=== PATIENT | male | born 1930 | race Caucasian/White ===

== ENCOUNTER → 2016-06-13 | Outpatient (CLI) | payer MEDICARE, BC ==
--- NOTE | 2016-06-13 12:08 | US ---
EXAMINATION TYPE: US chest DATE OF EXAM: 06/13/2016 11:10 AM COMPARISON: Radiograph 06/09/2016 CLINICAL HISTORY: 86-year-old male SOB R06.02 J90 Pleural effusion right. TECHNIQUE: Multiple sonographic images of the posterior mid to lower right chest wall for assessment of pleural effusion. FINDINGS: TECHNOLOGIST NOTES: scanned over the right post chest; no pleural effusion noted; results called to Josselin at 3rd floor procedures, Dr Lindquist to be notified. Images show high positioning of the liver suggesting elevation of the right hemidiaphragm compatible with radiographic findings. No pleural effusion is seen. IMPRESSIONS: High positioning of the liver suggesting elevation of the right hemidiaphragm. No pleural effusion se en.
--- NOTE | 2016-06-13 13:08 | CT ---
EXAMINATION TYPE: CT chest wo con DATE OF EXAM: 06/13/2016 12:56 PM COMPARISON: 03/02/2016 HISTORY: Rt Pleural Effusion, SOB CT DLP: 526 mGycm Automated exposure control for dose reduction was used. FINDINGS: The graft severe cardiomegaly seen. Atherosclerotic change at the origin of the great vesse ls most marked involving the subclavian origin. Extensive coronary artery calcification seen. There is a area of infiltrate involving the right lower lobe. No sizable pleural effusion. Emphysematous changes are seen. Pleural-based nodularity in the right upper lobe measuring 5 mm likel y is postinflammatory. Arthropathy shoulders and severe multilevel degenerative disc changes within the visualized spine are again noted. There are extensive coronary artery calcifications, calcifications of the aortic root and the patient is post median sternotomy. There is a right pleural effusion, air bronchograms are present in the right lower lobe. Emphysematou s changes are present within the lungs. There is a single nonobstructing right renal calculus and hypodense lesion involving the upper pole a nd midpole the right kidney which are indeterminate by noncontrast technique. There is mild aneurysmal dilation of the visualized portion of the abdominal aorta measuring 3.1 cm. Cholelithiasis. Likely is a degree of gynecomastia involving the right chest. IMPRESSION: 1. COPD AND MARKED CARDIOMEGALY WITH EXTENSIVE CORONARY ARTERY CALCIFICATION. 2. RIGHT LOWER LOBE AREA OF CHRONIC ATELECTASIS OR INFILTRATE WITH NO SIZABLE PLEURAL EFFUSION. PERSI STENT RIGHT HEMIDIAPHRAGM ELEVATION. 3. CHOLELITHIASIS 4. 3.1 CM ABDOMINAL AORTIC ANEURYSM
== END | disposition home or self-care (01) ==
LOC: RADUSWWP 11:08
PROVIDERS: ATTEND Internal Medicine Critical Care Medicine
DX: J98.6 Disorders of diaphragm (principal); J44.9 Chronic obstructive pulmonary disease, unspecified; I51.7 Cardiomegaly; I25.10 Atherosclerotic heart disease of native coronary artery without angina pectoris
CPT/HCPCS: 71250; 76604

== ENCOUNTER 2017-05-18 11:30 | Emergency (ER) | payer MEDICARE, BC ==
[2017-05-18 12:06] VITALS: BP 121/64; PULSE 81; RESP 17; TEMP 97.9
[2017-05-18] MEDS ORDERED: CLINDAMYCIN 150 MG CAP PO STA ×2 (12:12→12:29)
--- NOTE | 2017-05-18 12:19 | ED ---
General Adult HPI - General Chief complaint: Dental/Oral Stated complaint: DENTAL PAIN Time Seen by Provider: 05/18/17 12:07 Source: patient Mode of arrival: ambulatory Limitations: no limitations - History of Present Illness Initial comments: Philip is an 87 her old male who presents to the emergency department today for evaluation of dental pain. Patient has multiple broken teeth and reports that he has been experiencing pain in his lower left tooth since he broke it a few weeks ago. She saw his primary care physician and was prescribed by mouth Keflex which he was compliant with. Patient reports the by mouth Keflex was completed approximately 5 days ago. Since that time he has had persistent pain in the tooth which she is treating with by mouth Motrin. He states that this morning he noticed the base of the tooth seemed a little more red and swollen which prompted him to come to the emergency department for reevaluation. Patient is scheduled to see his dentist for this on Thursday of this week. She denies any fevers, chills, nausea, vomiting. He reports that he is otherwise in his usual state of health. He is able to eat and drink without difficulty. He's had no change in his voice or swelling of his face or throat. - Related Data Home Medications Medication Instructions Recorded Confirmed Acetaminophen Tab [Tylenol] 650 mg PO Q4H PRN 03/02/16 04/30/16 Aspirin 81 mg PO HS 03/02/16 04/30/16 Atorvastatin [Lipitor] 40 mg PO HS 03/02/16 04/30/16 Furosemide [Lasix] 40 mg PO BID 03/02/16 04/30/16 Ipratropium-Albuterol Nebulize 3 ml INHALATION RT-Q6H PRN 03/02/16 04/30/16 [Duoneb 0.5 mg-3 mg/3 ml Soln] Pantoprazole Sodium [Protonix] 40 mg PO DAILY 03/02/16 04/30/16 Potassium Chloride ER [K-Dur 10] 10 meq PO AC-SUPPER 03/02/16 04/30/16 Sennosides [Senna] 17.2 mg PO HS 04/09/16 04/30/16 Tamsulosin HCl [Flomax] 0.4 mg PO DAILY@1200 04/09/16 04/30/16 Warfarin [Coumadin] 5 mg PO SUTUTH 04/09/16 04/30/16 Warfarin [Coumadin] 7 mg PO MOWESA 04/09/16 04/30/16 Previous Rx's Medication Instructions Recorded Digoxin [Lanoxin] 125 mcg PO DAILY #30 tab 02/11/16 Losartan [Cozaar] 12.5 mg PO DAILY@1200 #30 tab 02/11/16 ALPRAZolam [Xanax] 0.25 mg PO BID PRN #14 tab 03/07/16 Metoprolol Tartrate [Lopressor] 25 mg PO TID tab 03/07/16 Nitroglycerin Sl Tabs [Nitrostat] 0.4 mg SUBLINGUAL Q5M PRN #0 tab 03/07/16 Temazepam [Restoril] 15 mg PO HS PRN #7 cap 03/07/16 Clindamycin [Cleocin] 450 mg PO Q6H 7 Days #28 capsule 05/18/17 Allergies Allergy/AdvReac Type Severity Reaction Status Date / Time cyclobenzaprine HCl Allergy Confusion Verified 05/18/17 12:06 [From Flexeril] Penicillins Allergy Rash/Hives Verified 05/18/17 12:06 Review of Systems ROS Statement: Those systems with pertinent positive or pertinent negative responses have been documented in the HPI. ROS Other: All systems not noted in ROS Statement are negative. Past Medical History Past Medical History: Atrial Fibrillation, Heart Failure, GERD/Reflux, Hyperlipidemia, Hypertension Additional Past Medical History / Comment(s): edema, constipation History of Any Multi-Drug Resistant Organisms: None Reported Past Surgical History: Appendectomy, Coronary Bypass/CABG, Hernia Repair, Orthopedic Surgery Additional Past Surgical History / Comment(s): shoulder, ankle Past Anesthesia/Blood Transfusion Reactions: No Reported Reaction Past Psychological History: No Psychological Hx Reported Smoking Status: Former smoker Past Alcohol Use History: None Reported Past Drug Use History: None Reported - Past Family History Father History Unknown: Yes Mother History Unknown: Yes General Exam Limitations: no limitations General appearance: alert, in no apparent distress Head exam: Present: atraumatic, normocephalic Eye exam: Present: normal appearance, PERRL ENT exam: Present: other (Poor dentition, multiple capped and broken teeth. Tooth #23 is broken with minimal erythema at the base of the tooth. No obvious abscess.) Neck exam: Present: normal inspection. Absent: lymphadenopathy Respiratory exam: Absent: respiratory distress Cardiovascular Exam: Present: regular rate, systolic murmur GI/Abdominal exam: Present: soft. Absent: distended Extremities exam: Present: normal inspection Neurological exam: Present: alert, oriented X3, other (Hard of hearing) Psychiatric exam: Present: normal affect, normal mood Skin exam: Present: warm, dry Course Vital Signs 05/18/17 12:03 Temperature 97.9 F Pulse Rate 81 Respiratory 17 Rate Blood Pressure 121/64 O2 Sat by Pulse 92 L Oximetry Medical Decision Making - Medical Decision Making Patient was seen and evaluated, history was obtained from the patient Physical exam is consistent with poor dentition and a broken tooth. At this time I do think the patient requires oral antibiotics and follow up with dentist as scheduled. Patient was recently on Keflex I will prescribe by mouth clindamycin, first dose to be given here in the emergency department. Disposition Clinical Impression: Dental infection, Broken tooth Disposition: HOME SELF-CARE Condition: Good Instructions: Dental Abscess (ED), Toothache (ED) Prescriptions: Clindamycin [Cleocin] 450 mg PO Q6H 7 Days #28 capsule Referrals: Dom Price DO [Primary Care Provider] - 1-2 days Time of Disposition: 12:19
== END 2017-05-18 12:33 | disposition home or self-care (01) ==
LOC: EC 11:30
DX: S02.5XXA Fracture of tooth (traumatic), initial encounter for closed fracture (principal); K04.7 Periapical abscess without sinus; I48.91 Unspecified atrial fibrillation; I11.0 Hypertensive heart disease with heart failure; I50.9 Heart failure, unspecified; E78.5 Hyperlipidemia, unspecified; K21.9 Gastro-esophageal reflux disease without esophagitis; Z87.891 Personal history of nicotine dependence; Z88.0 Allergy status to penicillin; Z88.8 Allergy status to other drugs, medicaments and biological substances; Z79.01 Long term (current) use of anticoagulants; Z79.82 Long term (current) use of aspirin; Z79.899 Other long term (current) drug therapy; X58.XXXA Exposure to other specified factors, initial encounter
CPT/HCPCS: 99282

== ENCOUNTER 2018-09-24 17:01 | Inpatient (IN) | payer MEDICARE, BC ==
[2018-09-24] MEDS ORDERED: IPRATROPIUM-ALBUTEROL 3 ML NEB INHALATION STA (17:15)
--- NOTE | 2018-09-24 17:19 | ED ---
SOB HPI - General Chief Complaint: Shortness of Breath Stated Complaint: SOB, cough Time Seen by Provider: 09/24/18 17:14 Source: patient, RN notes reviewed, old records reviewed Mode of arrival: wheelchair Limitations: no limitations - History of Present Illness Initial Comments: This is a 8-year-old male the ER for evaluation shortness of breath. Patient has shortness with her a few days now progressing. No pain. No chest pain currently. No fevers that he knows. He does have increased cough and congestion and increased sputum production. No recent hospitalizations no known significant sick contacts. MD Complaint: shortness of breath, cough -: days(s) Severity: mild Consistency: constant Improves With: nothing Worsens With: exertion Known History Of: congestive heart failure Context: recent URI Associated Symptoms: cough, sputum production Treatments Prior to Arrival: none - Related Data Home Medications Medication Instructions Recorded Confirmed Aspirin 81 mg PO HS 03/02/16 09/24/18 Atorvastatin [Lipitor] 40 mg PO HS 03/02/16 09/24/18 Furosemide [Lasix] 40 mg PO BID 03/02/16 09/24/18 Ipratropium-Albuterol Nebulize 3 ml INHALATION RT-QID PRN 03/02/16 09/24/18 [Duoneb 0.5 mg-3 mg/3 ml Soln] Pantoprazole Sodium [Protonix] 40 mg PO DAILY 03/02/16 09/24/18 Potassium Chloride ER [K-Dur 10] 10 meq PO AC-SUPPER 03/02/16 09/24/18 Tamsulosin HCl [Flomax] 0.4 mg PO DAILY@1200 04/09/16 09/24/18 ALPRAZolam [Xanax] 0.25 mg PO HS PRN 09/24/18 09/24/18 Metoprolol Tartrate [Lopressor] 25 mg PO BID 09/24/18 09/24/18 Previous Rx's Medication Instructions Recorded Losartan [Cozaar] 12.5 mg PO DAILY@1200 #30 tab 02/11/16 Nitroglycerin Sl Tabs [Nitrostat] 0.4 mg SUBLINGUAL Q5M PRN #0 tab 03/07/16 Allergies Allergy/AdvReac Type Severity Reaction Status Date / Time Penicillins Allergy Rash/Hives Verified 09/24/18 17:42 cyclobenzaprine HCl AdvReac Confusion Verified 09/24/18 17:42 [From Flexeril] Review of Systems ROS Statement: Those systems with pertinent positive or pertinent negative responses have been documented in the HPI. ROS Other: All systems not noted in ROS Statement are negative. Past Medical History Past Medical History: Atrial Fibrillation, Heart Failure, GERD/Reflux, Hyperlipidemia, Hypertension Additional Past Medical History / Comment(s): edema, constipation History of Any Multi-Drug Resistant Organisms: None Reported Past Surgical History: Appendectomy, Coronary Bypass/CABG, Hernia Repair, Orthopedic Surgery Additional Past Surgical History / Comment(s): shoulder, ankle Past Anesthesia/Blood Transfusion Reactions: No Reported Reaction Past Psychological History: No Psychological Hx Reported Smoking Status: Former smoker Past Alcohol Use History: None Reported Past Drug Use History: None Reported - Past Family History Father History Unknown: Yes Mother History Unknown: Yes General Exam Limitations: no limitations General appearance: alert, in no apparent distress Head exam: Present: atraumatic, normocephalic, normal inspection Eye exam: Present: normal appearance, PERRL, EOMI. Absent: scleral icterus, conjunctival injection, periorbital swelling ENT exam: Present: normal exam, mucous membranes moist Neck exam: Present: normal inspection. Absent: tenderness, meningismus, lymphadenopathy Respiratory exam: Present: normal lung sounds bilaterally, wheezes, rales, prolonged expiratory. Absent: respiratory distress, rhonchi, stridor Cardiovascular Exam: Present: regular rate, normal rhythm, normal heart sounds. Absent: systolic murmur, diastolic murmur, rubs, gallop, clicks GI/Abdominal exam: Present: soft, normal bowel sounds. Absent: distended, tenderness, guarding, rebound, rigid Extremities exam: Present: normal inspection, full ROM, normal capillary refill. Absent: tenderness, pedal edema, joint swelling, calf tenderness Back exam: Present: normal inspection Neurological exam: Present: alert, oriented X3, CN II-XII intact Psychiatric exam: Present: normal affect, normal mood Skin exam: Present: warm, dry, intact, normal color. Absent: rash Course Vital Signs 09/24/18 09/24/18 09/24/18 17:04 17:36 17:52 Temperature 98.5 F Pulse Rate 96 92 104 H Respiratory 24 Rate Blood Pressure 124/72 O2 Sat by Pulse 91 L Oximetry - Reevaluation(s) Reevaluation #1: 09/24/18 19:01 Medical record is reviewed Reevaluation #2: 09/24/18 19:01 Symptoms improving Medical Decision Making - Medical Decision Making 88 male the ER for evaluation presents today for evaluation regards to cough and congestion. Positive bronchitis, patient also has mild CHF will admit for diuresis and breathing treatments. - Lab Data Result diagrams: 09/24/18 17:27 09/24/18 17:27 Lab Results 09/24/18 09/24/18 09/24/18 Range/Units 17:27 17:27 17:27 WBC 8.2 (3.8-10.6) k/uL RBC 4.58 (4.30-5.90) m/uL Hgb 13.9 (13.0-17.5) gm/dL Hct 42.3 (39.0-53.0) % MCV 92.3 (80.0-100.0) fL MCH 30.2 (25.0-35.0) pg MCHC 32.8 (31.0-37.0) g/dL RDW 13.5 (11.5-15.5) % Plt Count 117 L (150-450) k/uL Neutrophils % 77 % Lymphocytes % 13 % Monocytes % 5 % Eosinophils % 3 % Basophils % 0 % Neutrophils # 6.3 (1.3-7.7) k/uL Lymphocytes # 1.1 (1.0-4.8) k/uL Monocytes # 0.4 (0-1.0) k/uL Eosinophils # 0.2 (0-0.7) k/uL Basophils # 0.0 (0-0.2) k/uL PT (9.0-12.0) sec INR (<1.2) APTT (22.0-30.0) sec Sodium 139 (137-145) mmol/L Potassium 4.4 (3.5-5.1) mmol/L Chloride 106 (98-107) mmol/L Carbon Dioxide 26 (22-30) mmol/L Anion Gap 7 mmol/L BUN 20 (9-20) mg/dL Creatinine 0.95 (0.66-1.25) mg/dL Est GFR (CKD-EPI)AfAm 83 (>60 ml/min/1.73 sqM) Est GFR (CKD-EPI)NonAf 72 (>60 ml/min/1.73 sqM) Glucose 106 H (74-99) mg/dL Calcium 9.7 (8.4-10.2) mg/dL Magnesium 2.2 (1.6-2.3) mg/dL Total Bilirubin 1.0 (0.2-1.3) mg/dL AST 41 (17-59) U/L ALT 27 (21-72) U/L Alkaline Phosphatase 119 (38-126) U/L Troponin I (0.000-0.034) ng/mL NT-Pro-B Natriuret Pep 2900 pg/mL Total Protein 7.5 (6.3-8.2) g/dL Albumin 4.6 (3.5-5.0) g/dL 09/24/18 09/24/18 Range/Units 17:27 17:27 WBC (3.8-10.6) k/uL RBC (4.30-5.90) m/uL Hgb (13.0-17.5) gm/dL Hct (39.0-53.0) % MCV (80.0-100.0) fL MCH (25.0-35.0) pg MCHC (31.0-37.0) g/dL RDW (11.5-15.5) % Plt Count (150-450) k/uL Neutrophils % % Lymphocytes % % Monocytes % % Eosinophils % % Basophils % % Neutrophils # (1.3-7.7) k/uL Lymphocytes # (1.0-4.8) k/uL Monocytes # (0-1.0) k/uL Eosinophils # (0-0.7) k/uL Basophils # (0-0.2) k/uL PT 11.1 (9.0-12.0) sec INR 1.1 (<1.2) APTT 24.0 (22.0-30.0) sec Sodium (137-145) mmol/L Potassium (3.5-5.1) mmol/L Chloride (98-107) mmol/L Carbon Dioxide (22-30) mmol/L Anion Gap mmol/L BUN (9-20) mg/dL Creatinine (0.66-1.25) mg/dL Est GFR (CKD-EPI)AfAm (>60 ml/min/1.73 sqM) Est GFR (CKD-EPI)NonAf (>60 ml/min/1.73 sqM) Glucose (74-99) mg/dL Calcium (8.4-10.2) mg/dL Magnesium (1.6-2.3) mg/dL Total Bilirubin (0.2-1.3) mg/dL AST (17-59) U/L ALT (21-72) U/L Alkaline Phosphatase (38-126) U/L Troponin I 0.039 H* (0.000-0.034) ng/mL NT-Pro-B Natriuret Pep pg/mL Total Protein (6.3-8.2) g/dL Albumin (3.5-5.0) g/dL - EKG Data -: EKG Interpreted by Me (EKG shows sinus rhythm rate of 97, PA 204, QRS 78 QTC 469) - Radiology Data Radiology results: report reviewed (Chest x-rays mild to minimal pulmonary edema no pneumonia), image reviewed Disposition Clinical Impression: Congestive heart failure, NSTEMI (non-ST elevated myocardial infarction), Acute bronchitis Disposition: ADMITTED IP TO THIS HOSP Condition: Fair Is patient prescribed a controlled substance at d/c from ED?: No Referrals: Dom Price DO [Primary Care Provider] - 1-2 days
[2018-09-24 18:02] LABS: Basophils % (A) 0 %; Eosinophils # (A) 0.2 k/uL (0-0.7); Eosinophils % (A) 3 %; HCT 42.3 % (39.0-53.0); HGB 13.9 gm/dL (13.0-17.5); Lymphocytes # (A) 1.1 k/uL (1.0-4.8); Lymphocytes % (A) 13 %; MCH 30.2 pg (25.0-35.0); MCHC 32.8 g/dL (31.0-37.0); MCV 92.3 fL (80.0-100.0); Mean Platelet Volume 7.9; Monocytes # (A) 0.4 k/uL (0-1.0); Monocytes % (A) 5 %; Neutrophils # (A) 6.3 k/uL (1.3-7.7); Neutrophils % (A) 77 %; Platelet Count 117 k/uL (150-450); RBC 4.58 m/uL (4.30-5.90); RDW 13.5 % (11.5-15.5); WBC 8.2 k/uL (3.8-10.6)
[2018-09-24 18:11] LABS: INR 1.1 (<1.2); Prothrombin Time 11.1 sec (9.0-12.0)
[2018-09-24 18:17] LABS: Albumin 4.6 g/dL (3.5-5.0); Calcium 9.7 mg/dL (8.4-10.2); Magnesium 2.2 mg/dL (1.6-2.3); Potassium 4.4 mmol/L (3.5-5.1); Total Protein 7.5 g/dL (6.3-8.2)
--- NOTE | 2018-09-24 18:26 | XR ---
EXAMINATION TYPE: XR chest 2V DATE OF EXAM: 09/24/2018 COMPARISON: 06/09/2016 HISTORY: Short of breath TECHNIQUE: Frontal and lateral views of the chest are obtained. FINDINGS: There is elevated right diaphragm. There is coarse interstitial density in the lower lung montano. Thoracic aorta is atheromatous. There are sternal wires. There are chest leads. IMPRESSION: Fibrotic changes at the lung bases. There is some mild atelectasis right lung base. No h eart failure. There is some progression of fibrosis and atelectasis right lung base compared to old e xam.
[2018-09-24] MEDS ORDERED: IPRATROPIUM-ALBUTEROL 3 ML NEB INHALATION PRN ×2 (18:59→22:00)
[2018-09-24] MEDS ORDERED: AZITHROMYCIN 500 MG TAB PO STA (18:59)
[2018-09-24] MEDS: FUROSEMIDE 10 MG/ML 4 ML VIAL IV SCH (21:22)
[2018-09-24] MEDS ORDERED: NITROGLYCERIN SL TABS 0.4 MG TAB SUBLINGUAL PRN (22:00)
[2018-09-25] MEDS: ALPRAZolam 0.25 MG TAB PO PRN ×2 (00:06→21:07)
[2018-09-25 01:44] LABS: Glucose,Whole Blood 353 mg/dL (75-99)
[2018-09-25 02:44] LABS: Glucose,Whole Blood 114 mg/dL (75-99)
[2018-09-25 05:21] LABS: Basophils % (A) 1 %; Eosinophils # (A) 0.2 k/uL (0-0.7); Eosinophils % (A) 3 %; HCT 39.5 % (39.0-53.0); HGB 12.9 gm/dL (13.0-17.5); Lymphocytes # (A) 0.8 k/uL (1.0-4.8); Lymphocytes % (A) 14 %; MCH 30.3 pg (25.0-35.0); MCHC 32.6 g/dL (31.0-37.0); MCV 92.8 fL (80.0-100.0); Mean Platelet Volume 8.1; Monocytes # (A) 0.4 k/uL (0-1.0); Monocytes % (A) 6 %; Neutrophils # (A) 4.3 k/uL (1.3-7.7); Neutrophils % (A) 74 %; Platelet Count 109 k/uL (150-450); RBC 4.25 m/uL (4.30-5.90); RDW 13.6 % (11.5-15.5); WBC 5.9 k/uL (3.8-10.6)
[2018-09-25 05:29] LABS: Calcium 9.2 mg/dL (8.4-10.2); Potassium 3.6 mmol/L (3.5-5.1)
[2018-09-25] MEDS: FUROSEMIDE 10 MG/ML 4 ML VIAL IV SCH ×2 (06:58→18:55)
--- NOTE | 2018-09-25 07:15 | P.CRDCN ---
History of Present Illness Consult date: 09/25/18 Chief complaint: Shortness of breath History of present illness: This is a pleasant 88-year-old gentleman with a past medical history significant for coronary artery disease and status post coronary artery that is grafting, valvular heart disease and status post aortic valve replacement, hypertension, and dyslipidemia, presented to the emergency room complaining of shortness of breath. The patient stated that for the last several weeks, he has been more short of breath with exertion. Beside that he has been more congested and also was experiencing symptoms of increasing in the cough as well as sputum production. He denies any fever or chills. Denies any symptoms of chest pain or chest discomfort. No dizziness or lightheadedness. No heart racing or fluttering. And no syncope. No lower extremities edema noted. With the patient presented to the emergency room, the chest x-ray showed fibrotic changes. The BMP was checked and came in to be elevated. The EKG showed sinus rhythm with sinus tachycardia and nonspecific ST and T wave abnormalities. The rest of the blood work came in to be unremarkable. Based on that, the patient was diagnosed was congestive heart failure and was started on Lasix IV and he has been diuresis throughout the night. The troponin came in to be slightly elevated but the patient did not have any symptoms of chest pain or chest discomfort. I do feel that the mild increase in troponin is likely related to the sinus tachycardia but severe/obstructive CAD, be totally excluded. The patient underwent an echocardiogram in 2016, that revealed severe LV dysfunction with EF around 30%. Past Medical History Past Medical History: Atrial Fibrillation, Heart Failure, GERD/Reflux, Hyperlipidemia, Hypertension Additional Past Medical History / Comment(s): edema, constipation History of Any Multi-Drug Resistant Organisms: None Reported Past Surgical History: Appendectomy, Coronary Bypass/CABG, Hernia Repair, Orthopedic Surgery Additional Past Surgical History / Comment(s): shoulder, ankle Past Anesthesia/Blood Transfusion Reactions: No Reported Reaction Past Psychological History: No Psychological Hx Reported Additional Psychological History / Comment(s): . Retired. The not related to service. No recent travels. No animal exposures Smoking Status: Former smoker Past Alcohol Use History: None Reported Past Drug Use History: None Reported - Past Family History Father History Unknown: Yes Mother History Unknown: Yes Additional Family Medical History / Comment(s): Pt states "both my parents were pretty healthy." Medications and Allergies Home Medications Medication Instructions Recorded Confirmed Type Losartan [Cozaar] 12.5 mg PO DAILY@1200 #30 tab 02/11/16 09/24/18 Rx Aspirin 81 mg PO HS 03/02/16 09/24/18 History Atorvastatin [Lipitor] 40 mg PO HS 03/02/16 09/24/18 History Furosemide [Lasix] 40 mg PO BID 03/02/16 09/24/18 History Ipratropium-Albuterol Nebulize 3 ml INHALATION RT-QID PRN 03/02/16 09/24/18 History [Duoneb 0.5 mg-3 mg/3 ml Soln] Pantoprazole Sodium [Protonix] 40 mg PO DAILY 03/02/16 09/24/18 History Potassium Chloride ER [K-Dur 10] 10 meq PO AC-SUPPER 03/02/16 09/24/18 History Nitroglycerin Sl Tabs [Nitrostat] 0.4 mg SUBLINGUAL Q5M PRN #0 tab 03/07/16 09/24/18 Rx Tamsulosin HCl [Flomax] 0.4 mg PO DAILY@1200 04/09/16 09/24/18 History ALPRAZolam [Xanax] 0.25 mg PO HS PRN 09/24/18 09/24/18 History Metoprolol Tartrate [Lopressor] 25 mg PO BID 09/24/18 09/24/18 History Allergies Allergy/AdvReac Type Severity Reaction Status Date / Time Penicillins Allergy Rash/Hives Verified 09/24/18 17:42 cyclobenzaprine HCl AdvReac Confusion Verified 09/24/18 17:42 [From Flexeril] Physical Exam Vitals: Vital Signs Temp Pulse Pulse Resp BP BP Pulse Ox 09/25/18 04:31 97 09/25/18 04:19 96 09/25/18 04:00 98.0 F 103 H 96 20 122/74 122/74 88 L 09/25/18 03:00 92 18 95 09/25/18 02:00 98 23 101/65 96 09/25/18 01:31 23 09/25/18 01:30 98.6 F 100 24 120/76 96 09/25/18 01:12 98.9 F 99 16 103/54 96 09/24/18 23:52 18 09/24/18 23:33 98.4 F 101 H 20 107/67 99 09/24/18 21:23 98.6 F 104 H 20 111/70 96 09/24/18 21:05 105 H 09/24/18 20:55 98 09/24/18 19:10 103 H 18 100/65 95 09/24/18 17:52 104 H 09/24/18 17:36 92 09/24/18 17:04 98.5 F 96 24 124/72 91 L Intake and Output 09/24/18 09/25/18 09/25/18 22:59 06:59 14:59 Output Total 200 Balance -200 Output: Urine 200 Other: Voiding Method Urinal Weight 65.771 kg 67.8 kg - Constitutional General appearance: no acute distress - Respiratory Respiratory: bilateral: rhonchi - Cardiovascular Rhythm: regular Heart sounds: normal: S1, S2 Abnormal Heart Sounds: systolic murmur Results 09/25/18 05:10 09/25/18 05:10 Cardiac Enzymes 09/24/18 09/24/18 09/24/18 Range/Units 17:27 17:27 23:55 AST 41 (17-59) U/L Troponin I 0.039 H* 0.050 H* (0.000-0.034) ng/mL 09/25/18 Range/Units 05:10 AST (17-59) U/L Troponin I 0.063 H* (0.000-0.034) ng/mL Coagulation 09/24/18 Range/Units 17:27 PT 11.1 (9.0-12.0) sec APTT 24.0 (22.0-30.0) sec CBC 09/24/18 09/25/18 Range/Units 17:27 05:10 WBC 8.2 5.9 (3.8-10.6) k/uL RBC 4.58 4.25 L (4.30-5.90) m/uL Hgb 13.9 12.9 L (13.0-17.5) gm/dL Hct 42.3 39.5 (39.0-53.0) % Plt Count 117 L 109 L (150-450) k/uL Comprehensive Metabolic Panel 09/24/18 09/25/18 Range/Units 17:27 05:10 Sodium 139 141 (137-145) mmol/L Potassium 4.4 3.6 (3.5-5.1) mmol/L Chloride 106 103 (98-107) mmol/L Carbon Dioxide 26 31 H (22-30) mmol/L BUN 20 18 (9-20) mg/dL Creatinine 0.95 0.94 (0.66-1.25) mg/dL Glucose 106 H 102 H (74-99) mg/dL Calcium 9.7 9.2 (8.4-10.2) mg/dL AST 41 (17-59) U/L ALT 27 (21-72) U/L Alkaline Phosphatase 119 (38-126) U/L Total Protein 7.5 (6.3-8.2) g/dL Albumin 4.6 (3.5-5.0) g/dL Current Medications Generic Name Dose Route Start Last Admin Trade Name Freq PRN Reason Stop Dose Admin Albuterol/Ipratropium 3 ml 09/24/18 22:00 09/25/18 04:19 Duoneb 0.5 Mg-3 Mg/3 Ml Soln INHALATION 3 ml RT-QID PRN Administration Shortness Of Breath Alprazolam 0.25 mg 09/24/18 22:00 09/25/18 00:06 Xanax PO 0.25 mg HS PRN Administration Insomnia Aspirin 81 mg 09/25/18 21:00 Aspirin PO HS ANIL Atorvastatin Calcium 40 mg 09/25/18 21:00 Lipitor PO HS [facility] Azithromycin 500 mg 09/25/18 09:00 Zithromax PO DAILY [facility] Furosemide 40 mg 09/24/18 19:00 09/25/18 06:58 Lasix IV 40 mg Q12H ANIL Administration Losartan Potassium 12.5 mg 09/25/18 12:00 Cozaar PO DAILY@1200 [facility] Metoprolol Tartrate 25 mg 09/25/18 09:00 Lopressor PO TID [facility] Nitroglycerin 0.4 mg 09/24/18 22:00 Nitrostat SUBLINGUAL Q5M PRN Chest Pain Pantoprazole Sodium 40 mg 09/25/18 09:00 Protonix PO DAILY [facility] Potassium Chloride 10 meq 09/25/18 17:30 K-Dur 10 PO AC-SUPPER [facility] Tamsulosin HCl 0.4 mg 09/25/18 12:00 Flomax PO DAILY@1200 ANIL Intake and Output 09/24/18 09/25/18 09/25/18 22:59 06:59 14:59 Output Total 200 Balance -200 Output: Urine 200 Other: Voiding Method Urinal Weight 65.771 kg 67.8 kg 09/25/18 05:10 09/25/18 05:10 Assessment and Plan Assessment: Assessment #1 congestive heart failure exacerbation secondary to systolic dysfunction, acute on chronic #2 mildly abnormal cardiac enzymes #3 possible pneumonia #4 severe CAD and status post CABG #4 known severe cardiomyopathy based on echo in 2016 #5 multiple comorbid conditions Plan #1 continue the current dose of Lasix IV. #2 continue monitor the kidney function and electrolytes #3 he is getting comfort for pneumonia with antibiotic #4 I would consider medical treatment for the mildly abnormal cardiac enzymes, in view of the absence of chest pain as well as ischemic ST or T-wave abnormalities #5 we'll obtain an echocardiogram was Doppler #6 increase the dose of metoprolol for heart rate control Thank you for allowing us participate in his care and we will follow-up with the patient
[2018-09-25] MEDS ORDERED: Potassium Replacement Protocol 1 EACH MISC MISCELLANE PRN (08:04)
[2018-09-25] MEDS: METOPROLOL TARTRATE 25 MG TAB PO SCH ×3 (08:14→21:07)
[2018-09-25] MEDS: PANTOPRAZOLE 40 MG TABLET PO SCH (08:14)
[2018-09-25] MEDS ORDERED: AZITHROMYCIN 500 MG TAB PO SCH (09:00)
[2018-09-25] MEDS ORDERED: POTASSIUM CHLORIDE ER 20 MEQ TAB.ER PO SCH (09:00)
[2018-09-25] MEDS ORDERED: FUROSEMIDE 40 MG TAB PO SCH (09:00)
[2018-09-25] MEDS ORDERED: LEVOFLOXACIN 500 MG TAB PO SCH (09:00)
[2018-09-25] MEDS ORDERED: METOPROLOL TARTRATE 25 MG TAB PO SCH (09:00)
[2018-09-25] MEDS: IPRATROPIUM-ALBUTEROL 3 ML NEB INHALATION SCH ×3 (10:38→19:43)
[2018-09-25] MEDS: methylPREDNISolone SOD SUCCI 40 MG/ML 1 ML VIAL IV SCH ×3 (11:27→16:41)
[2018-09-25] MEDS: guaiFENesin 600 MG TABLET.ER PO SCH ×2 (11:28→21:07)
[2018-09-25] MEDS: TAMSULOSIN 0.4 MG CAP.ER.24H PO SCH (11:28)
--- NOTE | 2018-09-25 11:37 | P.CNPUL ---
History of Present Illness Consult date: 09/25/18 Requesting physician: Dom Price Reason for consult: dyspnea, cough, pneumonia Chief complaint: Cough and shortness of breath. History of present illness: This is an 88-year-old white male with history of multiple medical problems including chronic atrial fibrillation, congestive heart failure, hypertension, previous CABG, valvular heart disease and previous aortic valve replacement, patient presented to the ER with a few weeks history of increased shortness of breath, productive cough, describing his phlegm as glue-like in nature. Patient has been experiencing more and more shortness of breath over the last few weeks, denies any fever or chills, denies any hemoptysis, denies any chest pain lightheadedness or dizziness. Denies any syncopal episodes. Denies any swelling in lower extremities. Patient had a chest x-ray upon presentation showing some chronic fibrotic changes in the bases, however underlying infiltrate/pneumonia in the right lower lobe is not entirely ruled out. Patient was admitted, and this consult was initiated. In the meantime the patient was started on antibiotics, bronchodilators, steroids, and Mucinex. Looking back at his previous echocardiogram from 2016, patient clearly has a history of LV dysfunction ejection fraction is in the range of 30%, however his chest x-ray is not suggestive of pulmonary edema at this point. His BNP level was elevated, and his troponins were elevated. WBC count was noted to be normal. Hemoglobin 12.9. Review of Systems Constitutional: Denies weight loss, fevers chills, night sweats. Eyes: Denies diplopia blurred vision. Ears: Denies earache nose, mouth and throat: Denies sore throat, no nasal discharge, . Cardiovascular: Presently denies any chest pain, no palpitations, no orthopnea, no PND. Respiratory: As noted in HPI. Productive cough and shortness of breath. Gastrointestinal: Has nausea vomiting abdominal pain melena or hematemesis. Genitourinary: Denied dysuria frequency urgency. Musculoskeletal: Denies arthralgia or myalgia. Integumentary: Denies any rashes Neurological: No headache no blurred vision no dizziness.. Psychiatric: Denies symptoms of active depression Endocrine: Denies heat or cold intolerance. Hematologic: Denies clotting bleeding or bruising. Past Medical History Past Medical History: Atrial Fibrillation, Heart Failure, GERD/Reflux, Hyperlipidemia, Hypertension Additional Past Medical History / Comment(s): edema, constipation History of Any Multi-Drug Resistant Organisms: None Reported Past Surgical History: Appendectomy, Coronary Bypass/CABG, Hernia Repair, Orthopedic Surgery Additional Past Surgical History / Comment(s): shoulder, ankle Past Anesthesia/Blood Transfusion Reactions: No Reported Reaction Past Psychological History: No Psychological Hx Reported Additional Psychological History / Comment(s): . Retired. The not related to service. No recent travels. No animal exposures Smoking Status: Former smoker Past Alcohol Use History: None Reported Past Drug Use History: None Reported - Past Family History Father History Unknown: Yes Mother History Unknown: Yes Additional Family Medical History / Comment(s): Pt states "both my parents were pretty healthy." Medications and Allergies Home Medications Medication Instructions Recorded Confirmed Type Losartan [Cozaar] 12.5 mg PO DAILY@1200 #30 tab 02/11/16 09/24/18 Rx Aspirin 81 mg PO HS 03/02/16 09/24/18 History Atorvastatin [Lipitor] 40 mg PO HS 03/02/16 09/24/18 History Furosemide [Lasix] 40 mg PO BID 03/02/16 09/24/18 History Ipratropium-Albuterol Nebulize 3 ml INHALATION RT-QID PRN 03/02/16 09/24/18 History [Duoneb 0.5 mg-3 mg/3 ml Soln] Pantoprazole Sodium [Protonix] 40 mg PO DAILY 03/02/16 09/24/18 History Potassium Chloride ER [K-Dur 10] 10 meq PO AC-SUPPER 03/02/16 09/24/18 History Nitroglycerin Sl Tabs [Nitrostat] 0.4 mg SUBLINGUAL Q5M PRN #0 tab 03/07/16 09/24/18 Rx Tamsulosin HCl [Flomax] 0.4 mg PO DAILY@1200 04/09/16 09/24/18 History ALPRAZolam [Xanax] 0.25 mg PO HS PRN 09/24/18 09/24/18 History Metoprolol Tartrate [Lopressor] 25 mg PO BID 09/24/18 09/24/18 History Allergies Allergy/AdvReac Type Severity Reaction Status Date / Time Penicillins Allergy Rash/Hives Verified 09/24/18 17:42 cyclobenzaprine HCl AdvReac Confusion Verified 09/24/18 17:42 [From Flexeril] Physical Exam Vitals: Vital Signs Temp Pulse Pulse Resp BP BP Pulse Ox 09/25/18 10:38 94 09/25/18 08:00 98.2 F 102 H 25 H 132/77 95 09/25/18 04:31 97 09/25/18 04:19 96 09/25/18 04:00 98.0 F 103 H 96 20 122/74 122/74 88 L 09/25/18 03:00 92 18 95 09/25/18 02:00 98 23 101/65 96 09/25/18 01:31 23 09/25/18 01:30 98.6 F 100 24 120/76 96 09/25/18 01:12 98.9 F 99 16 103/54 96 09/24/18 23:52 18 09/24/18 23:33 98.4 F 101 H 20 107/67 99 09/24/18 21:23 98.6 F 104 H 20 111/70 96 09/24/18 21:05 105 H 09/24/18 20:55 98 09/24/18 19:10 103 H 18 100/65 95 09/24/18 17:52 104 H 09/24/18 17:36 92 09/24/18 17:04 98.5 F 96 24 124/72 91 L Intake and Output 09/24/18 09/25/18 09/25/18 22:59 06:59 14:59 Output Total 200 350 Balance -200 -350 Output: Urine 200 350 Other: Voiding Method Urinal Urinal Weight 65.771 kg 67.8 kg General appearance: alert, in no apparent distress Head exam: Atraumatic, normocephalic Eye exam:normal appearance, PERRL, EOMI. Absent: scleral icterus, conjunctival injection, periorbital swelling ENT exam: normal exam, mucous membranes moist Neck exam: Present: normal inspection. Absent: tenderness, meningismus, lymphadenopathy Respiratory exam: Crackles noted bilaterally, rhonchi and wheezes more so on forced expiratory noted bilaterally. Cardiovascular Exam: Present: regular rate, normal rhythm, normal heart sounds. Absent: systolic murmur, diastolic murmur, rubs, gallop, clicks GI/Abdominal exam: Present: soft, normal bowel sounds. Absent: distended, tenderness, guarding, rebound, rigid Extremities exam: Present: normal inspection, full ROM, normal capillary refill. Absent: tenderness, pedal edema, joint swelling, calf tenderness Back exam: Present: normal inspection Neurological exam: Present: alert, oriented X3, CN II-XII intact Psychiatric exam: Present: normal affect, normal mood Skin exam: Present: warm, dry, intact, normal color. Absent: rash Results - Laboratory Findings CBC and BMP: 09/25/18 05:10 09/25/18 05:10 PT/INR, D-dimer PT 11.1 sec (9.0-12.0) 09/24/18 17:27 INR 1.1 (<1.2) 09/24/18 17:27 Abnormal lab findings: Abnormal Labs 09/24/18 09/24/18 09/24/18 17:27 17:27 17:27 RBC Hgb Plt Count 117 L Lymphocytes # Carbon Dioxide Glucose 106 H POC Glucose (mg/dL) Troponin I 0.039 H* 09/24/18 09/25/18 09/25/18 23:55 01:33 02:33 RBC Hgb Plt Count Lymphocytes # Carbon Dioxide Glucose POC Glucose (mg/dL) 353 H 114 H Troponin I 0.050 H* 09/25/18 09/25/18 09/25/18 05:10 05:10 05:10 RBC 4.25 L Hgb 12.9 L Plt Count 109 L Lymphocytes # 0.8 L Carbon Dioxide 31 H Glucose 102 H POC Glucose (mg/dL) Troponin I 0.063 H* - Diagnostic Findings Chest x-ray: image reviewed (Chest x-ray showed fibrotic changes at the right base, elevated right hemidiaphragm, findings are chronic, however underlyingdisease/infiltrate is not entirely ruled out in the right lower lobe.) Assessment and Plan Assessment: Impression: Shortness of breath, multifactorial, secondary to interstitial lung disease, possible right lower lobe pneumonia/community-acquired, cardiomyopathy and LV dysfunction, and some component of systolic congestive heart failure. I also suspect underlying chronic obstructive pulmonary disease. Acute on chronic Systolic congestive heart failure Community-acquired pneumonia involving the right lower lobe is strongly suspected Interstitial lung disease, nonspecific pulmonary fibrosis, nonspecific interstitial pneumonitis Severe LV dysfunction and cardiomyopathy, chronic Severe coronary artery disease and previous CABG Suspect some component of chronic obstructive lung disease with acute exacerbation. Recommendation: Continue present course of treatment including diuretics, bronchodilators, Mucinex, Levaquin, steroids, we'll continue to follow patient is presently overflow in the intensive care unit. Repeat chest x-ray in the next 24 hours. Time with Patient: Greater than 30
[2018-09-25] MEDS: LOSARTAN 25 MG TAB PO SCH (12:42)
--- NOTE | 2018-09-25 13:36 | P.HPIM ---
History of Present Illness 88-year-old gentleman came in with compensative shortness of breath has been going on for 2 days with cough unable to bring up anything thick sputum he characterizes it's like November. Patient denied any fever chills. Patient the doesn't use any oxygen at home does appear to have COPD does have wheezing on exam. Patient had history of CABG valvular heart disease chest x-ray is consistent with some pulmonary edema as well as pulmonary fibrosis. Patient LV ejection fraction is around 30% in the past troponins are minimally elevated cardiology valid the patient patient denied any chest pain denies any lightheadedness or dizziness. Patient cannot give a clear history of orthopnea or paroxysmal nocturnal dyspnea patient normally sleeps with elevated but patient patient does have a hospital bed at home. BNP is minimally elevated to 1999 Review of Systems REVIEW OF SYSTEMS: CONSTITUTIONAL: No fever, no malaise, no fatigue. HEENT: No recent visual problems or hearing problems. Denied any sore throat. CARDIOVASCULAR: No chest pain, orthopnea, PND, no palpitations, no syncope. PULMONARY: N no hemoptysis. GASTROINTESTINAL: No diarrhea, no nausea, no vomiting, no abdominal pain. NEUROLOGICAL: No headaches, no weakness, no numbness. HEMATOLOGICAL: Denies any bleeding or petechiae. GENITOURINARY: Denies any burning micturition, frequency, or urgency. MUSCULOSKELETAL/RHEUMATOLOGICAL: Denies any joint pain, swelling, or any muscle pain. ENDOCRINE: Denies any polyuria or polydipsia. The rest of the 14-point review of systems is negative. Past Medical History Past Medical History: Atrial Fibrillation, Heart Failure, GERD/Reflux, Hyperlipidemia, Hypertension Additional Past Medical History / Comment(s): edema, constipation History of Any Multi-Drug Resistant Organisms: None Reported Past Surgical History: Appendectomy, Coronary Bypass/CABG, Hernia Repair, Orthopedic Surgery Additional Past Surgical History / Comment(s): shoulder, ankle Past Anesthesia/Blood Transfusion Reactions: No Reported Reaction Past Psychological History: No Psychological Hx Reported Additional Psychological History / Comment(s): . Retired. The not related to service. No recent travels. No animal exposures Smoking Status: Former smoker Past Alcohol Use History: None Reported Past Drug Use History: None Reported - Past Family History Father History Unknown: Yes Mother History Unknown: Yes Additional Family Medical History / Comment(s): Pt states "both my parents were pretty healthy." Medications and Allergies Home Medications Medication Instructions Recorded Confirmed Type Losartan [Cozaar] 12.5 mg PO DAILY@1200 #30 tab 02/11/16 09/24/18 Rx Aspirin 81 mg PO HS 03/02/16 09/24/18 History Atorvastatin [Lipitor] 40 mg PO HS 03/02/16 09/24/18 History Furosemide [Lasix] 40 mg PO BID 03/02/16 09/24/18 History Ipratropium-Albuterol Nebulize 3 ml INHALATION RT-QID PRN 03/02/16 09/24/18 History [Duoneb 0.5 mg-3 mg/3 ml Soln] Pantoprazole Sodium [Protonix] 40 mg PO DAILY 03/02/16 09/24/18 History Potassium Chloride ER [K-Dur 10] 10 meq PO AC-SUPPER 03/02/16 09/24/18 History Nitroglycerin Sl Tabs [Nitrostat] 0.4 mg SUBLINGUAL Q5M PRN #0 tab 03/07/16 09/24/18 Rx Tamsulosin HCl [Flomax] 0.4 mg PO DAILY@1200 04/09/16 09/24/18 History ALPRAZolam [Xanax] 0.25 mg PO HS PRN 09/24/18 09/24/18 History Metoprolol Tartrate [Lopressor] 25 mg PO BID 09/24/18 09/24/18 History Allergies Allergy/AdvReac Type Severity Reaction Status Date / Time Penicillins Allergy Rash/Hives Verified 09/24/18 17:42 cyclobenzaprine HCl AdvReac Confusion Verified 09/24/18 17:42 [From Flexeril] Physical Exam Vitals: Vital Signs Temp Pulse Pulse Resp BP BP Pulse Ox 09/25/18 11:00 98 F 77 22 112/63 93 L 09/25/18 10:38 94 09/25/18 08:00 98.2 F 102 H 25 H 132/77 95 09/25/18 04:31 97 09/25/18 04:19 96 09/25/18 04:00 98.0 F 103 H 96 20 122/74 122/74 88 L 09/25/18 03:00 92 18 95 09/25/18 02:00 98 23 101/65 96 09/25/18 01:31 23 09/25/18 01:30 98.6 F 100 24 120/76 96 09/25/18 01:12 98.9 F 99 16 103/54 96 09/24/18 23:52 18 09/24/18 23:33 98.4 F 101 H 20 107/67 99 09/24/18 21:23 98.6 F 104 H 20 111/70 96 09/24/18 21:05 105 H 09/24/18 20:55 98 09/24/18 19:10 103 H 18 100/65 95 09/24/18 17:52 104 H 09/24/18 17:36 92 09/24/18 17:04 98.5 F 96 24 124/72 91 L Intake and Output 09/24/18 09/25/18 09/25/18 22:59 06:59 14:59 Output Total 200 350 Balance -200 -350 Output: Urine 200 350 Other: Voiding Method Urinal Urinal Weight 65.771 kg 67.8 kg PHYSICAL EXAMINATION: GENERAL: The patient is alert and oriented x3, not in any acute distress. Well developed, well nourished. HEENT: Pupils are round and equally reacting to light. EOMI. No scleral icterus. No conjunctival pallor. Normocephalic, atraumatic. No pharyngeal erythema. No thyromegaly. CARDIOVASCULAR: S1 and S2 present. No murmurs, rubs, or gallops. PULMONARY:decreased air entry with significant expiratory wheezing on exam ABDOMEN: Soft, nontender, nondistended, normoactive bowel sounds. No palpable organomegaly. MUSCULOSKELETAL: No joint swelling or deformity. EXTREMITIES: No cyanosis, clubbing, or pedal edema. NEUROLOGICAL: Gross neurological examination did not reveal any focal deficits. SKIN: No rashes. Results CBC & Chem 7: 09/25/18 05:10 09/25/18 05:10 Labs: Abnormal Lab Results - Last 24 Hours (Table) 09/24/18 09/24/18 09/24/18 Range/Units 17:27 17:27 17:27 RBC (4.30-5.90) m/uL Hgb (13.0-17.5) gm/dL Plt Count 117 L (150-450) k/uL Lymphocytes # (1.0-4.8) k/uL Carbon Dioxide (22-30) mmol/L Glucose 106 H (74-99) mg/dL POC Glucose (mg/dL) (75-99) mg/dL Troponin I 0.039 H* (0.000-0.034) ng/mL 09/24/18 09/25/18 09/25/18 Range/Units 23:55 01:33 02:33 RBC (4.30-5.90) m/uL Hgb (13.0-17.5) gm/dL Plt Count (150-450) k/uL Lymphocytes # (1.0-4.8) k/uL Carbon Dioxide (22-30) mmol/L Glucose (74-99) mg/dL POC Glucose (mg/dL) 353 H 114 H (75-99) mg/dL Troponin I 0.050 H* (0.000-0.034) ng/mL 09/25/18 09/25/18 09/25/18 Range/Units 05:10 05:10 05:10 RBC 4.25 L (4.30-5.90) m/uL Hgb 12.9 L (13.0-17.5) gm/dL Plt Count 109 L (150-450) k/uL Lymphocytes # 0.8 L (1.0-4.8) k/uL Carbon Dioxide 31 H (22-30) mmol/L Glucose 102 H (74-99) mg/dL POC Glucose (mg/dL) (75-99) mg/dL Troponin I 0.063 H* (0.000-0.034) ng/mL Thrombosis Risk Factor Assmnt - Choose All That Apply Each Factor Represents 1 point: Acute ME, Heart failure (<1month) Other Risk Factors: No Other congenital or acquired thrombophilia - If yes, enter type in comment: No Thrombosis Risk Factor Assessment Total Risk Factor Score: 2 Thrombosis Risk Factor Assessment Level: Low Risk Assessment and Plan Plan: -shortness of breath multifactorial appears to be secondary to mostly COPD exacerbation patient systemic steroids for that with contribution of interstitial lung disease and mild LV dysfunction acute exacerbation of heart failure. -chronic systolic heart failure with acute exacerbation. -Possibility of community-acquired right lower lobe pneumonia cannot be ruled out patient is on antibiotics which will be continued patient is on inhalational treatments which will be continued COPD with acute exacerbation -Interstitial lung disease -coronary arterydisease and CABG in the past -hypertension -Hyperlipidemia -Gastroesophageal reflux disease -mildly elevated troponin secondary to hypoxemia and the congestive heart f ailure no evidence of coronary ischemia -benign prostatic atrophy - patient will need pharmacologic GI as well as DVT prophylaxis
[2018-09-25 15:32] VITALS: BMI 27.3
[2018-09-25] MEDS: POTASSIUM CHLORIDE ER 10 MEQ TAB.ER.PRT PO SCH (16:41)
[2018-09-25] MEDS: ATORVASTATIN 40 MG TAB PO SCH (21:07)
[2018-09-25] MEDS: ASPIRIN 81 MG PO SCH (21:07)
[2018-09-25] MEDS: HEPARIN SODIUM,PORCINE 5,000 UNIT/ML 1 ML VIAL SQ SCH (21:07)
[2018-09-26] MEDS: methylPREDNISolone SOD SUCCI 40 MG/ML 1 ML VIAL IV SCH ×3 (00:18→11:39)
[2018-09-26 04:51] LABS: HGB 13.3 gm/dL (13.0-17.5); MCH 29.9 pg (25.0-35.0); MCHC 32.3 g/dL (31.0-37.0); MCV 92.5 fL (80.0-100.0); Mean Platelet Volume 7.8; Platelet Count 114 k/uL (150-450); RBC 4.43 m/uL (4.30-5.90); RDW 14.1 % (11.5-15.5); WBC 5.9 k/uL (3.8-10.6)
[2018-09-26 05:07] LABS: Calcium 9.4 mg/dL (8.4-10.2); Potassium 4.4 mmol/L (3.5-5.1)
--- NOTE | 2018-09-26 06:45 | XR ---
EXAMINATION TYPE: XR chest 1V portable DATE OF EXAM: 09/26/2018 HISTORY: Pneumonia. REFERENCE: Previous study dated 09/24/2018. FINDINGS: There has been a midline sternotomy. There is apparent elevation of the right hemidiaphragm. Heart size is upper limits of normal. There i s some right basilar airspace disease. The the left lung is clear. I cannot exclude a small right eff usion. IMPRESSION: 1. RIGHT BASILAR ATELECTASIS. 2. I CANNOT EXCLUDE A SMALL, RIGHT EFFUSION.
[2018-09-26] MEDS: IPRATROPIUM-ALBUTEROL 3 ML NEB INHALATION SCH ×4 (06:50→19:46)
[2018-09-26] MEDS: FUROSEMIDE 10 MG/ML 4 ML VIAL IV SCH ×2 (07:05→18:39)
--- NOTE | 2018-09-26 08:05 | ECHOF ---
Referral Reason:SOB MEASUREMENTS -------- HEIGHT: 157.5 cm WEIGHT: 64.4 kg BP: RVIDd: 3.0 cm (< 3.3) IVSd: 1.6 cm (0.6 - 1.1) LVIDd: 3.7 cm (3.9 - 5.3) LVPWd: 1.3 cm (0.6 - 1.1) IVSs: 1.6 cm LVIDs: 3.4 cm LVPWs: 1.5 cm LAESV Index (A-L): 44.00 ml/m Ao Diam: 2.9 cm (2.0 - 3.7) AV Cusp: 1.5 cm (1.5 - 2.6) LA Diam: 4.0 cm (2.7 - 3.8) MV EXCURSION: 12.495 mm (> 18.000) MV EF SLOPE: 52 mm/s (70 - 150) EPSS: 0.7 cm MV E Zechariah: 0.72 m/s MV DecT: 155 ms MV A Zechariah: 0.72 m/s MV E/A Ratio: 1.00 AV maxP.11 mmHg AV meanP.69 mmHg AR PHT: 433 ms RAP: 5.00 mmHg RVSP: 14.19 mmHg FINDINGS -------- Sinus rhythm. This was a technically good study. The left ventricular size is normal. There is moderate concentric left ventricular hypertrophy. O verall left ventricular systolic function is severely impaired with, an EF between 20 - 25 %. The right ventricle is normal in size. LA is severely dilated >40 ml/m2 The right atrial size is normal. Interatrial and interventricular septum intact. Trace amount of aortic regurgitation. Peak/mean gradient across the Aortic Valve is 13.11mmHg / 7. 69mmHg. Normally functioning bioprosthetic valve. The mitral valve leaflets are mildly thickened. Mild mitral annular calcification present. Mild m itral regurgitation is present. Mild tricuspid regurgitation present. The right ventricular systolic pressure, as measured by Doppl er, is 14.19mmHg. There is no pulmonic regurgitation present. The aortic root size is normal. Normal inferior vena cava with normal inspiratory collapse consistent with estimated right atrial pre ssure of 5 mmHg. There is no pericardial effusion. CONCLUSIONS -------- 1. Sinus rhythm. 2. This was a technically good study. 3. The left ventricular size is normal. 4. There is moderate concentric left ventricular hypertrophy. 5. Overall left ventricular systolic function is severely impaired with, an EF between 20 - 25 %. 6. The right ventricle is normal in size. 7. LA is severely dilated >40 ml/m2 8. The right atrial size is normal. 9. Interatrial and interventricular septum intact. 10. Trace amount of aortic regurgitation. 11. Peak/mean gradient across the Aortic Valve is 13.11mmHg / 7.69mmHg. 12. Normally functioning bioprosthetic valve. 13. The mitral valve leaflets are mildly thickened. 14. Mild mitral annular calcification present. 15. Mild mitral regurgitation is present. 16. Mild tricuspid regurgitation present. 17. The right ventricular systolic pressure, as measured by Doppler, is 14.19mmHg. 18. There is no pulmonic regurgitation present. 19. The aortic root size is normal. 20. Normal inferior vena cava with normal inspiratory collapse consistent with estimated right atrial pressure of 5 mmHg. 21. There is no pericardial effusion. LOGISTICS DIRECTOR: Kayce Alanis RDCS
--- NOTE | 2018-09-26 09:22 | P.PN ---
Subjective Progress Note Date: 09/26/18 Principal diagnosis: Acute on chronic systolic congestive heart failure This is an 88-year-old white male with history of multiple medical problems including chronic atrial fibrillation, congestive heart failure, hypertension, previous CABG, valvular heart disease and previous aortic valve replacement, patient presented to the ER with a few weeks history of increased shortness of breath, productive cough, describing his phlegm as glue-like in nature. Patient has been experiencing more and more shortness of breath over the last few weeks, denies any fever or chills, denies any hemoptysis, denies any chest pain lightheadedness or dizziness. Denies any syncopal episodes. Denies any swelling in lower extremities. Patient had a chest x-ray upon presentation showing some chronic fibrotic changes in the bases, however underlying infiltrate/pneumonia in the right lower lobe is not entirely ruled out. Patient was admitted, and this consult was initiated. In the meantime the patient was started on antibiotics, bronchodilators, steroids, and Mucinex. Looking back at his previous echocardiogram from 2016, patient clearly has a history of LV dysfunction ejection fraction is in the range of 30%, however his chest x-ray is not suggestive of pulmonary edema at this point. His BNP level was elevated, and his troponins were elevated. WBC count was noted to be normal. Hemoglobin 12.9. Patient was seen today on 09/26/2018, feeling much better, breathing a lot easi er, his cough wheezing and shortness of breath have completely resolved. Patient continues to have normal WBC count, hemoglobin is normal. Metabolic profile is normal BUN is 25 creatinine is 1.05. Troponins were noted to be a bit elevated. Pro calcitonin was upper limit of normal. This does not speak in favor of pneumonia. Chest x-ray showed bibasilar atelectasis, possibly a small tiny pleural effusion. Chest x-ray is improved compared to the chest x-ray he had on admission. Hence considering the findings, this speaks in favor of congestive heart failure rather than pneumonia on presentation Objective - Vital Signs Vital signs: Vital Signs Temp 97.8 F 09/26/18 04:00 Pulse 78 09/26/18 06:57 Resp 16 09/26/18 04:00 BP 116/68 09/26/18 04:00 Pulse Ox 93 L 09/26/18 04:00 Intake & Output 05/04/0509/26/18 09/26/18 18:59 06:59 18:59 Output Total 350 725 Balance -350 -725 Weight 67.8 kg 66.7 kg Output: Urine 350 725 Other: Voiding Method Urinal Urinal Urinal - Exam General appearance: Revealed a 88-year-old white male, in no distress, feeling much better compared to yesterday. Head exam: Atraumatic, normocephalic Eye exam:normal appearance, PERRL, EOMI. Absent: scleral icterus, conjunctival injection, periorbital swelling ENT exam: normal exam, mucous membranes moist Neck exam: Present: normal inspection. Absent: tenderness, meningismus, lymphadenopathy Respiratory exam: Clear throughout, no crackles or rhonchi or wheezes. Cardiovascular Exam: Present: regular rate, normal rhythm, normal heart sounds. Absent: systolic murmur, diastolic murmur, rubs, gallop, clicks GI/Abdominal exam: Present: soft, normal bowel sounds. Absent: distended, tenderness, guarding, rebound, rigid Extremities exam: Present: normal inspection, full ROM, normal capillary refill. Absent: tenderness, pedal edema, joint swelling, calf tenderness Back exam: Present: normal inspection Neurological exam: Present: alert, oriented X3, CN II-XII intact Psychiatric exam: Present: normal affect, normal mood Skin exam: Present: warm, dry, intact, normal color. Absent: rash - Labs CBC & Chem 7: 09/26/18 04:26 09/26/18 04:26 Labs: Abnormal Lab Results - Last 24 Hours (Table) 09/25/18 09/26/18 09/26/18 Range/Units 05:10 04:26 04:26 Plt Count 114 L (150-450) k/uL BUN 25 H (9-20) mg/dL Glucose 136 H (74-99) mg/dL Procalcitonin 0.10 H (0.02-0.09) ng/mL Assessment and Plan Assessment: Impression: Acute on chronic Systolic congestive heart failure Community-acquired pneumonia involving the right lower lobe was suspected but considering the dramatic improvement this is felt to be extremely on likely. Interstitial lung disease, nonspecific pulmonary fibrosis, nonspecific interstitial pneumonitis Severe LV dysfunction and cardiomyopathy, chronic Severe coronary artery disease and previous CABG Suspect some component of chronic obstructive lung disease with acute exacerbation. Recommendation: Continue present course of treatment including bronchodilators, steroids, we will possibly discontinue Levaquin in the next 24 hours, consider discharge planning in the next 24 hours. We'll continue to follow. Patient remains overflow in the ICU. Time with Patient: Less than 30
[2018-09-26] MEDS: LEVOFLOXACIN 250 MG TAB PO SCH (09:32)
[2018-09-26] MEDS: HEPARIN SODIUM,PORCINE 5,000 UNIT/ML 1 ML VIAL SQ SCH ×2 (09:32→20:50)
[2018-09-26] MEDS: guaiFENesin 600 MG TABLET.ER PO SCH ×2 (09:32→20:50)
[2018-09-26] MEDS: PANTOPRAZOLE 40 MG TABLET PO SCH (09:32)
[2018-09-26] MEDS: METOPROLOL TARTRATE 25 MG TAB PO SCH ×3 (09:33→20:50)
[2018-09-26] MEDS: LOSARTAN 25 MG TAB PO SCH (11:40)
[2018-09-26] MEDS: TAMSULOSIN 0.4 MG CAP.ER.24H PO SCH (11:43)
--- NOTE | 2018-09-26 12:05 | P.PN ---
Subjective Progress Note Date: 09/26/18 Principal diagnosis: Congestive heart failure secondary to systolic dysfunction This is a pleasant 88-year-old gentleman with a past medical history significant for coronary artery disease and status post coronary artery that is grafting, valvular heart disease and status post aortic valve replacement, hypertension, and dyslipidemia, presented to the emergency room complaining of shortness of breath. The patient stated that for the last several weeks, he has been more short of breath with exertion. Beside that he has been more congested and also was experiencing symptoms of increasing in the cough as well as sputum production. He denies any fever or chills. Denies any symptoms of chest pain or chest discomfort. No dizziness or lightheadedness. No heart racing or fluttering. And no syncope. No lower extremities edema noted. With the patient presented to the emergency room, the chest x-ray showed fibrotic changes. The BMP was checked and came in to be elevated. The patient was diagnosed was congestive heart failure and was started on Lasix IV and he has b een diuresis throughout the night. The troponin came in to be slightly elevated but the patient did not have any symptoms of chest pain or chest discomfort. On follow-up with the patient today, 09/26/2018, he stated that he is feeling better indeterminable shortness of breath. No chest pain or chest discomfort. Hemodynamically he is a stable and he's not requiring any vasopressors. He was started on Lasix IV yesterday, the creatinine continues to be stable today. Urine output is marginal. I would recommend continue the patient on IV Lasix for additional 24 hours and continue monitor the kidney function and electrolytes. An echocardiogram was performed yesterday and revealed impaired LV function with an EF of 25-30% with normally functioning bioprosthetic aortic valve. Objective - Vital Signs Vital signs: Vital Signs Temp 98.3 F 09/26/18 11:00 Pulse 78 09/26/18 11:05 Resp 11 L 09/26/18 11:00 BP 111/63 09/26/18 11:00 Pulse Ox 99 09/26/18 11:00 Intake & Output 09/25/18 09/26/18 09/26/18 18:59 06:59 18:59 Intake Total 300 Output Total 350 725 200 Balance -350 -725 100 Weight 67.8 kg 66.7 kg Intake: Oral 300 Output: Urine 350 725 200 Other: Voiding Method Urinal Urinal Urinal # Voids 1 # Bowel Movements 1 - Constitutional General appearance: Present: no acute distress - Respiratory Respiratory: bilateral: diminished - Cardiovascular Rhythm: irregularly irregular Heart sounds: normal: S1, S2 Abnormal Heart Sounds: Present: systolic murmur - Labs CBC & Chem 7: 09/26/18 04:26 09/26/18 04:26 Labs: Abnormal Lab Results - Last 24 Hours (Table) 09/25/18 09/26/18 09/26/18 Range/Units 05:10 04:26 04:26 Plt Count 114 L (150-450) k/uL BUN 25 H (9-20) mg/dL Glucose 136 H (74-99) mg/dL Procalcitonin 0.10 H (0.02-0.09) ng/mL Assessment and Plan Assessment: Assessment #1 congestive heart failure exacerbation secondary to systolic dysfunction, acute on chronic #2 mildly abnormal cardiac enzymes #3 possible pneumonia #4 severe CAD and status post CABG #4 known severe cardiomyopathy based on echo in 2016 #5 multiple comorbid conditions Plan #1 continue the current dose of Lasix IV. #2 continue monitor the kidney function and electrolytes #3 he is getting comfort for pneumonia with antibiotic #4 I would consider medical treatment for the mildly abnormal cardiac enzymes, in view of the absence of chest pain as well as ischemic ST or T-wave abnormalities #5 the echo was reviewed and showed impaired LV function as described above Thank you for allowing us participate in his care and we will follow-up with the patient
--- NOTE | 2018-09-26 14:45 | P.PN ---
Subjective 88-year-old male was admitted secondary to shortness of breath multifactorial can start failure chronic systolic dysfunction with acute exacerbation as well as COPD exacerbation patient has significant improvement in his respiratory status, down the oxygen patient is presently saturating 99% on 3 L patient will be switched to oral steroids probably can be switched to oral Lasix tomorrow and can be discharged tomorrow kidney function is bit worse. Constitutional: Denied any fatigue denied any fever. Cardio vascular: denied any chest pain, palpitations Gastrointestinal denied any nausea vomiting Pulmonary: Denied any shortness of breath cough Neurologic denied any new focal deficits All inpatient medications were reviewed and appropriate changes in these medications as dictated in the interval history and assessment and plan. Objective - Vital Signs Vital signs: Vital Signs Temp 98.3 F 09/26/18 11:00 Pulse 78 09/26/18 11:05 Resp 11 L 09/26/18 11:00 BP 111/63 09/26/18 11:00 Pulse Ox 99 09/26/18 11:00 Intake & Output 09/25/18 09/26/18 09/26/18 18:59 06:59 18:59 Intake Total 300 Output Total 350 725 200 Balance -350 -725 100 Weight 67.8 kg 66.7 kg Intake: Oral 300 Output: Urine 350 725 200 Other: Voiding Method Urinal Urinal Urinal # Voids 1 # Bowel Movements 1 - Exam PHYSICAL EXAMINATION: GENERAL: The patient is alert and oriented x3, not in any acute distress. Well developed, well nourished. HEENT: Pupils are round and equally reacting to light. EOMI. No scleral icterus. No conjunctival pallor. Normocephalic, atraumatic. No pharyngeal erythema. No thyromegaly. CARDIOVASCULAR: S1 and S2 present. No murmurs, rubs, or gallops. PULMONARY: Chest is clear to auscultation, no wheezing or crackles. ABDOMEN: Soft, nontender, nondistended, normoactive bowel sounds. No palpable organomegaly. MUSCULOSKELETAL: No joint swelling or deformity. EXTREMITIES: No cyanosis, clubbing, or pedal edema. NEUROLOGICAL: Gross neurological examination did not reveal any focal deficits. SKIN: No rashes. - Labs CBC & Chem 7: 09/26/18 04:26 09/26/18 04:26 Labs: Abnormal Lab Results - Last 24 Hours (Table) 09/25/18 09/26/18 09/26/18 Range/Units 05:10 04:26 04:26 Plt Count 114 L (150-450) k/uL BUN 25 H (9-20) mg/dL Glucose 136 H (74-99) mg/dL Procalcitonin 0.10 H (0.02-0.09) ng/mL Assessment and Plan Plan: -shortness of breath multifactorial appears to be secondary to mostly COPD exacerbation patient systemic steroids for that with contribution of interstitial lung disease and mild LV dysfunction acute exacerbation of heart failure. -chronic systolic heart failure with acute exacerbation. -Possibility of community-acquired right lower lobe pneumonia cannot be ruled out patient is on antibiotics which will be continued patient is on inhalational treatments which will be continued COPD with acute exacerbation: We'll cut down systemic steroids probably can be switched to oral tomorrow and can be discharged tomorrow -Interstitial lung disease -coronary arterydisease and CABG in the past -hypertension -Hyperlipidemia -Gastroesophageal reflux disease -mildly elevated troponin secondary to hypoxemia and the congestive heart failure no evidence of coronary ischemia -benign prostatic atrophy - patient will need pharmacologic GI as well as DVT prophylaxis
[2018-09-26] MEDS: POTASSIUM CHLORIDE ER 10 MEQ TAB.ER.PRT PO SCH (16:42)
[2018-09-26] MEDS: ATORVASTATIN 40 MG TAB PO SCH (20:50)
[2018-09-26] MEDS: ALPRAZolam 0.25 MG TAB PO PRN (20:50)
[2018-09-26] MEDS: ASPIRIN 81 MG PO SCH (20:50)
[2018-09-26] MEDS ORDERED: methylPREDNISolone SOD SUCCI 40 MG/ML 1 ML VIAL IV SCH (21:00)
[2018-09-27 04:49] LABS: Calcium 9.5 mg/dL (8.4-10.2); Potassium 4.4 mmol/L (3.5-5.1)
[2018-09-27] MEDS: IPRATROPIUM-ALBUTEROL 3 ML NEB INHALATION SCH ×4 (06:52→20:02)
--- NOTE | 2018-09-27 06:58 | PN ---
PROGRESS NOTE DATE OF SERVICE: September 27, 2018 This is an 88-year-old male who was admitted on September 24. He was admitted as an overflow patient. The patient has a history of heart failure and bronchitis. Seen by my partner yesterday in evaluation. The patient is resting comfortably. No major complaints. Feels well. He would like to be discharged. Currently on O2 at 2 L/minute. No IV fluids at the current time. His chest x-ray shows some mild fluid overload. The patient has a history of acute on chronic systolic heart failure, community-acquired pneumonia involving the right lower lobe, some interstitial lung disease in the form of nonspecific interstitial pneumonia, severe LV dysfunction and cardiomyopathy, severe CAD with previous bypass grafting and certainly a component of underlying COPD from previous tobacco use. He was both a cigarette and a pipe smoker. Currently, the patient is resting comfortably. No major complaints. Lying flat in bed. Not complaining of any shortness of breath, chest pain, chest discomfort, cough, wheezing, phlegm production. He has been stable according to the nurse. Currently, his vital signs are stable. Temperature 98.6, heart rate 72, respiratory rate 18, blood pressure 123/67, mean 85 and 2 L saturation 94%. Appears in no acute distress. HEENT examination is grossly unremarkable. Nasal O2 noted. NECK: Supple. Full range of motion. No adenopathy or thyromegaly. Neck veins are flat. CARDIOVASCULAR: Examination reveals regular rhythm rate. Heart rate 72. S1, S2 normal. No distinct murmur noted. LUNGS: Reveal a few scattered bibasilar crackles. Breath sounds equal. No wheezes or rhonchi. ABDOMEN: Soft. Bowel sounds are heard. EXTREMITIES: Are intact. Some mild edema. SKIN: Without rash. NEUROLOGIC: Examination is brief but nonfocal. Lab data is reviewed. From the , sodium 138, potassium 4.4, chloride 101, CO2 of 29, anion gap is 8. BUN and creatinine were 41 and 1.07 suggesting prerenal azotemia. Troponin earlier was 0.063. Procalcitonin 0.10. His admission N terminal proBNP was elevated at 2900. Microbiologic studies are negative. Chest x-ray from the shows some mild changes of fluid overload. There might be some right basilar airspace disease and/or atelectasis. Medications are reviewed. He is currently on Xanax, aspirin, Lipitor, Lasix, Mucinex, heparin subcu, DuoNeb, Levaquin, losartan, Solu-Medrol, metoprolol, nitroglycerin tablets, Protonix, potassium chloride, and Flomax. ASSESSMENT: 1. Acute on chronic systolic heart failure, improved. 2. Community-acquired pneumonia, possibly involving the right lower lobe versus atelectasis. 3. Interstitial lung disease/nonspecific interstitial pneumonia. 4. Severe left ventricular dysfunction and cardiomyopathy, chronic. 5. Coronary artery disease with previous bypass grafting. 6. Possible underlying chronic obstructive pulmonary disease. PLAN: The patient is doing well. He may need to be discharged on oxygen therapy. His Lasix can be converted to p.o. In addition, the patient Solu-Medrol could be discontinued. No additional recommendations are made. Will continue the Levaquin for a few more days. Continue updrafts. The patient's overall prognosis is guarded. No additional recommendations are made. [id number] / IJN: [id number] /
[2018-09-27] MEDS: PANTOPRAZOLE 40 MG TABLET PO SCH (08:28)
[2018-09-27] MEDS: METOPROLOL TARTRATE 25 MG TAB PO SCH ×3 (08:28→22:29)
[2018-09-27] MEDS: FUROSEMIDE 40 MG TAB PO SCH (08:28)
[2018-09-27] MEDS: HEPARIN SODIUM,PORCINE 5,000 UNIT/ML 1 ML VIAL SQ SCH ×2 (08:28→20:27)
[2018-09-27] MEDS: LEVOFLOXACIN 250 MG TAB PO SCH (08:28)
--- NOTE | 2018-09-27 09:07 | PN ---
PROGRESS NOTE Mr. Bhardwaj is an 88-year-old male with known history of aortic valve replacement, coronary bypass grafting, who presented with symptoms of worsening dyspnea. He is feeling much better today, his breathing is stable. He denies any chest pain. He denies any dizziness, palpitation. Hemodynamically, he is stable. His echocardiogram during this admission revealed ejection fraction of 25% with a normal functioning of his aortic bioprosthesis. He continues to be on aspirin once a day, Lipitor 40 mg daily, Lasix 40 mg daily, losartan 12.5 mg daily, metoprolol tartrate 25 mg 3 times a day and Flomax. PHYSICAL EXAMINATION: Blood pressure 123/60 with a heart rate in the 70s. LUNGS: No wheezes appreciated with a few crackles. HEART: Regular rate and rhythm, S1, S2 with a systolic murmur, ejection type heard at the base, no diastolic murmur. No rub. ABDOMEN: Soft, nontender. EXTREMITIES: No edema. LAB DATA: Revealed BUN creatinine 41 and 1.07, potassium 4.4. IMPRESSION: 1. Respiratory failure with a combination with systolic congestive heart failure with possible respiratory infection. 2. History of coronary artery disease, status post bypass grafting and aortic valve replacement. 3. Severe cardiomyopathy documented in the past. 4. Mild troponin elevation representing a type 2 myocardial infarction. RECOMMENDATION: From the cardiac standpoint, the patient is on oral diuretic at this time. He will continue on the beta debi and the ARB. Will follow his renal function. Increase his level activity. If he remains stable, I am hopeful that he should be able to be discharged home in the next 24 to 48 hours. MMODL / IJN: [id number] /
[2018-09-27] MEDS: TAMSULOSIN 0.4 MG CAP.ER.24H PO SCH (12:06)
[2018-09-27] MEDS: LOSARTAN 25 MG TAB PO SCH (12:06)
--- NOTE | 2018-09-27 13:42 | P.DS ---
Providers Date of admission: 09/25/18 12:57 Expected date of discharge: 09/27/18 Attending physician: Dom Price Consults: Cardiology and pulmonary Primary care physician: Dom Price Hospital Course: Final Diagnoses: -Shortness of breath, multifactorial, secondary to acute CHF, acute COPD exacerbation, interstitial lung disease, and possible community-acquired pneumonia right lower lobe -Acute on chronic Systolic congestive heart failure exacerbation -Hypoxic respiratory failure secondary to the above -Interstitial lung disease, nonspecific pulmonary fibrosis, nonspecific interstitial pneumonitis -Severe LV dysfunction and cardiomyopathy, chronic -CAD, history of CABG -Hypertension -Hyperlipidemia -Gastroesophageal reflux disease -Mildly elevated troponin secondary to hypoxemia, CHF with no evidence of coronary ischemia as per cardiology. Hospital course: This is a 88-year-old male was admitted secondary to shortness of breath multifactorial, acute on chronic CHF systolic dysfunction with acute exacerbation as well as COPD exacerbation patient has significant improvement in his respiratory status, down the oxygen patient is presently saturating 99% on 3 L patient will be switched to oral steroids probably can be switched to oral Lasix tomorrow and can be discharged tomorrow.kidney function is bit worse. Maintained on nebulized bronchodilators, antibiotics, steroids with significant clinical improvement. O2 sat on room air after ambulation 87%, requiring 2 L nasal cannula at discharge to be arranged by case management. Cleared by both pulmonary and cardiology for discharge. BUN 41 creatinine 1.07, home dose Lasix decreased per textile knitter/pulmonary. Patient is being discharged home in a stable condition with guarded prognosis. EXAM: GENERAL: alert and oriented x3, not in any acute distress. CARDIOVASCULAR: S1 and S2 present. No murmurs, rubs, or gallops. PULMONARY: Chest is clear to auscultation, no wheezing or crackles. ABDOMEN: Soft, nontender, nondistended, normoactive bowel sounds. No palpable organomegaly. NEUROLOGICAL: Gross neurological examination did not reveal any focal deficits. The impression and plan of care has been dictated as directed. : I performed a history and examination of this patient, discussed the same with the dictator. I agree with the dictator's note ,documented as a scribe. Any additional findings or plans will be noted. Time taken: 35 minutes Patient Condition at Discharge: Stable Plan - Discharge Summary Discharge Rx Participant: No New Discharge Prescriptions: New Furosemide [Lasix] 40 mg PO DAILY tab Levofloxacin [Levaquin] 250 mg PO Q24H #5 tab Metoprolol Tartrate [Lopressor] 25 mg PO TID #90 tab Continue Losartan [Cozaar] 12.5 mg PO DAILY@1200 #30 tab Ipratropium-Albuterol Nebulize [Duoneb 0.5 mg-3 mg/3 ml Soln] 3 ml INHALATION RT-QID PRN PRN Reason: Shortness Of Breath Pantoprazole Sodium [Protonix] 40 mg PO DAILY Potassium Chloride ER [K-Dur 10] 10 meq PO AC-SUPPER Atorvastatin [Lipitor] 40 mg PO HS Aspirin 81 mg PO HS Nitroglycerin Sl Tabs [Nitrostat] 0.4 mg SUBLINGUAL Q5M PRN #0 tab PRN Reason: Chest Pain Tamsulosin HCl [Flomax] 0.4 mg PO DAILY@1200 ALPRAZolam [Xanax] 0.25 mg PO HS PRN PRN Reason: Insomnia Discontinued Furosemide [Lasix] 40 mg PO BID Metoprolol Tartrate [Lopressor] 25 mg PO BID Discharge Medication List Losartan [Cozaar] 12.5 mg PO DAILY@1200 #30 tab 02/11/16 [Rx] Aspirin 81 mg PO HS 03/02/16 [History] Atorvastatin [Lipitor] 40 mg PO HS 03/02/16 [History] Ipratropium-Albuterol Nebulize [Duoneb 0.5 mg-3 mg/3 ml Soln] 3 ml INHALATION RT-QID PRN 03/02/16 [History] Pantoprazole Sodium [Protonix] 40 mg PO DAILY 03/02/16 [History] Potassium Chloride ER [K-Dur 10] 10 meq PO AC-SUPPER 03/02/16 [History] Nitroglycerin Sl Tabs [Nitrostat] 0.4 mg SUBLINGUAL Q5M PRN #0 tab 03/07/16 [Rx] Tamsulosin HCl [Flomax] 0.4 mg PO DAILY@1200 04/09/16 [History] ALPRAZolam [Xanax] 0.25 mg PO HS PRN 09/24/18 [History] Furosemide [Lasix] 40 mg PO DAILY tab 09/27/18 [Rx] Levofloxacin [Levaquin] 250 mg PO Q24H #5 tab 09/27/18 [Rx] Metoprolol Tartrate [Lopressor] 25 mg PO TID #90 tab 09/27/18 [Rx] Follow up Appointment(s)/Referral(s): Helene Brown MD [STAFF PHYSICIAN] - 2 Weeks Dom Price DO [Primary Care Provider] - 3 Days Ambulatory/Diagnostic Orders: Complete Blood Count w/diff [LAB.AMB] Time Frame: 3 Days, Location: None Selected Activity/Diet/Wound Care/Special Instructions: 2lnc O2, case management to arrange confirm cardiology follow-up appointment p rior to discharge.
--- NOTE | 2018-09-27 14:59 | P.PN ---
Subjective Progress Note Date: 09/27/18 his is a 88-year-old male was admitted secondary to shortness of breath multifactorial, acute on chronic CHF systolic dysfunction with acute exacerbation as well as COPD exacerbation patient has significant improvement in his respiratory status, down the oxygen patient is presently saturating 99% on 3 L patient will be switched to oral steroids probably can be switched to oral Lasix tomorrow and can be discharged tomorrow.kidney function is bit worse. Maintained on nebulized bronchodilators, antibiotics, steroids with significant clinical improvement. O2 sat on room air after ambulation 87%, continuing to require 2 L nasal cannula. BUN 41 creatinine 1.07, home dose Lasix decreased per nephrologist/pulmonary. Afebrile. Denies chest pain, palpitations or increasing shortness of breath. Denies lightheadedness dizziness or focal deficits. Objective - Vital Signs Vital signs: Vital Signs Temp 97.9 F 09/27/18 12:00 Pulse 75 09/27/18 12:00 Resp 15 09/27/18 12:00 BP 105/60 09/27/18 12:00 Pulse Ox 95 09/27/18 12:00 Intake & Output 09/26/18 09/27/18 09/27/18 18:59 06:59 18:59 Intake Total 300 Output Total 200 650 400 Balance 100 -650 -400 Weight 65.7 kg Intake: Oral 300 Output: Urine 200 650 400 Other: Voiding Method Urinal Urinal Urinal # Voids 1 # Bowel Movements 1 - Exam GENERAL: Sitting up at side of bed, alert and oriented x3, no acute distress. HEENT: Pupils are round and equally reacting to light. EOMI. No scleral icterus. No conjunctival pallor. Normocephalic, atraumatic. No pharyngeal erythema. No thyromegaly. CARDIOVASCULAR: S1 and S2 present. No murmurs, rubs, or gallops. PULMONARY: Chest is clear to auscultation, no wheezing or crackles. ABDOMEN: Soft, nontender, nondistended, normoactive bowel sounds. No palpable organomegaly. MUSCULOSKELETAL: No joint swelling or deformity. EXTREMITIES: No cyanosis, clubbing, or pedal edema. NEUROLOGICAL: Gross neurological examination did not reveal any focal deficits. SKIN: No rashes. - Labs CBC & Chem 7: 09/26/18 04:26 09/27/18 03:57 Labs: Abnormal Lab Results - Last 24 Hours (Table) 09/27/18 Range/Units 03:57 BUN 41 H (9-20) mg/dL Glucose 118 H (74-99) mg/dL Assessment and Plan Assessment: -Shortness of breath, multifactorial, secondary to acute CHF, acute COPD exacerbation, interstitial lung disease, and possible community-acquired pneumonia right lower lobe -Acute on chronic Systolic congestive heart failure exacerbation -Hypoxic respiratory failure secondary to the above -Interstitial lung disease, nonspecific pulmonary fibrosis, nonspecific interstitial pneumonitis -Severe LV dysfunction and cardiomyopathy, chronic -CAD, history of CABG -Hypertension -Hyperlipidemia -Gastroesophageal reflux disease -Mildly elevated troponin secondary to hypoxemia, CHF with no evidence of coronary ischemia as per cardiology. Plan: Continue on current medication regime ,monitoring and symptomatic treatment. Patient is cleared for transfer out of ICU to [facility]. Aggressive pulmonary toileting with Incentive spirometer ordered. Increase ambulation as tolerated. As patient continues to require 2 L nasal cannula O2, Lasix decreased, we'll continue monitoring overnight to see if we might be able to get rid of the oxygen. (Patient is refusing oxygen at discharge). Close monitoring of renal function, electrolytes with repeat labs ordered for a.m. Discharge planning in progress for tomorrow. Further recommendations to follow. The impression and plan of care has been dictated as directed. : I performed a history and examination of this patient, discussed the same with the dictator. I agree with the dictator's note ,documented as a scribe. Any additional findings or plans will be noted.
--- NOTE | 2018-09-27 15:25 | CDI ---
Documentation Clarification Form Date: 09/27/2018 3:15:18 PM From: Yumiko BarrosCARLI olson, CCDS Admit Date: 09/25/2018 12:57:00 PM Patient Name: Philip Bhardwaj Visit Number: [id number] Discharge Date: ATTENTION: The Clinical Documentation Specialists (CDI) and [facility] Coding Staff appreciate your assistance in clarifying documentation. Please respond to the clarification below the line at the bottom and electronically sign. The CDI & [facility] Coding staff will review the response and follow-up if needed. Please note: Queries are made part of the Legal Health Record. If you have any questions, please contact the author of this message via ITS. Dr. Dom Price: Per the discharge summary: "Acute on chronic Systolic congestive heart failure exacerbation. Hypoxic respiratory failure secondary to the above." History/Risk Factors: Atrial fibrillation, CABG, Aortic Valve replacement, Pulmonary fibrosis, COPD, CHF, Hypertension & former smoker. Clinical Indicators: Presented with SOB secondary to COPD & CHF. Cough & thick sputum, no home O2. VS: R 24 (cough, SOB), PO 91 RA LAB: Trop 0.039^, 0.050^, 0.063^ RAD: CXR: Fibrotic changes at the lung bases, mild atelectasis right lung base. No heart failure, progression of fibrosis & atelectasis right lung base. Treatment: Albuterol INH, IV Lasix, Nitro sl, IV Solumedrol, po Zithromax, po Lasix, po Levaquin, po Lopressor, O2 2Lnc. In your professional opinion, can you please clarify if these findings signify one of the following conditions? Acute Respiratory Failure Chronic Respiratory Failure Acute on Chronic Respiratory Failure o With Hypercapnia o With Hypoxia Other Diagnosis, please specify Unable to determine (Last Revision: August 2017) MTDD
[2018-09-27] MEDS: POTASSIUM CHLORIDE ER 10 MEQ TAB.ER.PRT PO SCH (16:58)
[2018-09-27] MEDS: ASPIRIN 81 MG PO SCH (20:27)
[2018-09-27] MEDS: ATORVASTATIN 40 MG TAB PO SCH (20:27)
[2018-09-27] MEDS ORDERED: MENTHOL (NICE) LOZENGE MUCOUS MEM PRN (21:32)
[2018-09-27] MEDS: ALPRAZolam 0.25 MG TAB PO PRN (22:29)
[2018-09-27] MEDS: HYDROcodone/APAP 5-325MG 1 EACH TAB PO PRN (22:30)
[2018-09-27] MEDS: DOCUSATE 100 MG CAP PO SCH (22:30)
[2018-09-28 05:07] LABS: Calcium 9.2 mg/dL (8.4-10.2); Potassium 4.1 mmol/L (3.5-5.1)
[2018-09-28] MEDS: IPRATROPIUM-ALBUTEROL 3 ML NEB INHALATION SCH ×2 (05:43→10:49)
[2018-09-28] MEDS: HYDROcodone/APAP 5-325MG 1 EACH TAB PO PRN (05:58)
--- NOTE | 2018-09-28 06:57 | PN ---
PROGRESS NOTE DATE OF SERVICE: September 28, 2018 This is an 88-year-old male admitted on September 24. He was admitted as an overflow patient. He has a history of CHF and bronchitis. He was initially seen by my partner in evaluation and consultation. Currently, the patient is doing well. He is resting comfortably. He apparently was evaluated for home O2 yesterday. Apparently was determined that he would require home O2, but he does not want any oxygen. Currently, the patient is on 1 L by nasal cannula. He states that if he is sent home with oxygen, he would not wear it. The patient is feeling well. He is not receiving any IV fluids. In my opinion the patient could probably be discharged to a step-down unit or one of the floors or could be discharged possibly home. The patient does have a history of acute on chronic systolic heart failure, community-acquired pneumonia involving the right lower lobe, some mild interstitial lung disease in the form of nonspecific interstitial pneumonia, severe LV dysfunction with cardiomyopathy, severe CAD with previous bypass grafting as well as a underlying component of COPD. The patient is awake and alert, sitting up in bed. He is wearing the O2, but the patient does state that if he is discharged on oxygen, he will not wear it. Current vital signs are reviewed. Temperature 96.8, heart rate 69, respiratory rate 16, blood pressure 130/79, saturations are excellent on 1 L at 95%. Appears in no acute distress. No respiratory distress. No conversational dyspnea. No use of accessory muscles. HEENT: Examination is grossly unremarkable. Mucous membranes are moist. No oral lesions. NECK:Supple. Full range of motion. No adenopathy, thyromegaly or neck vein distention. CARDIOVASCULAR: Examination reveals a regular rhythm and rate. Heart sounds are distant. No distinct murmur. Heart rate in the mid 70s. LUNGS: Reveal a few scattered rhonchi and crackles. No wheezes. Breath sounds equal. ABDOMEN: Soft. Bowel sounds are heard. EXTREMITIES: Are intact. Minimal edema. SKIN: Is without rash. NEUROLOGIC: Examination is brief but nonfocal. Labs are reviewed. From today, there is a sodium of 138, potassium 4.1, chloride 104, CO2 is 29. Anion gap is 5. BUN and creatinine were 41 and 1.03. His admission procalcitonin level was 0.10 and his troponin was 0.063. The procalcitonin level was only modestly elevated. Microbiologic studies are negative. Medications are reviewed. His medications appeared to be appropriate including Levaquin and updrafts. ASSESSMENT: 1. Acute on chronic systolic heart failure, much improved. 2. Possible community-acquired pneumonia involving the right lower lobe, versus atelectasis, much improved. 3. Interstitial lung disease/nonspecific interstitial pneumonia. 4. Severe left ventricular dysfunction and cardiomyopathy, chronic. 5. Coronary artery disease with previous bypass grafting. 6. Possible underlying chronic obstructive pulmonary disease from previous tobacco use. PLAN: The patient is doing well. Solu-Medrol was discontinued. He remains on oral Levaquin. He could be discharged on a few days of Levaquin. The patient is refusing home oxygen therapy. The patient could be discharged to the general medical floor or step-down unit and/or could be possibly discharged home. Will leave that up to the primary. The patient is awake and alert. Doing well. Does not appear to be in any distress. MMODL / IJN: [id number] /
--- NOTE | 2018-09-28 07:44 | PN ---
PROGRESS NOTE Mr. Bhardwaj is an 88-year-old male with a known history of coronary artery disease status post coronary artery bypass grafting, aortic valve replacement, history of severe cardiomyopathy who presented with worsening dyspnea. He is feeling better. He still has some cough. He has no chest pain except when he is coughing. He has no dizziness or palpitation. He denies any nausea. He continues to be in sinus mechanism. Hemodynamically, he is stable. He continues to be at this time on aspirin 81 mg daily, Lipitor 40 mg daily, Lasix 40 mg daily, losartan 12.5 mg daily, metoprolol tartrate 25 mg 3 times a day and Protonix. PHYSICAL EXAMINATION: Blood pressure 130/70 with the heart rate in the 70s. LUNGS: With a few scattered wheezes. HEART: Regular rate and rhythm. S1, S2. No S3 with a systolic murmur. No diastolic murmur. ABDOMEN: Soft, nontender. EXTREMITIES: No significant edema. LAB DATA: Lab data revealed BUN and creatinine 41 and 1.03. Potassium 4.1. IMPRESSION: 1. Respiratory failure with exacerbation of systolic heart failure with probable bronchitis. 2. History of severe ischemic cardiomyopathy. 3. Status post coronary artery bypass grafting, aortic valve replacement. RECOMMENDATION: From the cardiac standpoint, we will continue present therapy, increase his level activity and hopefully he will be able to be discharged home soon. MMODL / IJN: [id number] /
[2018-09-28 09:01] VITALS: BP 116/63; RESP 20; TEMP 97.6
[2018-09-28] MEDS: PANTOPRAZOLE 40 MG TABLET PO SCH (09:01)
[2018-09-28] MEDS: DOCUSATE 100 MG CAP PO SCH (09:01)
[2018-09-28] MEDS: LEVOFLOXACIN 250 MG TAB PO SCH (09:01)
[2018-09-28] MEDS: FUROSEMIDE 40 MG TAB PO SCH (09:02)
[2018-09-28] MEDS: METOPROLOL TARTRATE 25 MG TAB PO SCH (09:02)
[2018-09-28] MEDS: HEPARIN SODIUM,PORCINE 5,000 UNIT/ML 1 ML VIAL SQ SCH (09:02)
[2018-09-28 10:52] VITALS: PULSE 80
[2018-09-28] MEDS: TAMSULOSIN 0.4 MG CAP.ER.24H PO SCH (11:33)
[2018-09-28] MEDS ORDERED: LOSARTAN 25 MG TAB PO SCH (12:00)
--- NOTE | 2018-09-29 07:34 | CDI ---
Documentation Clarification Form Date: 09/27/2018 3:15:00 PM From: Yumiko McknightBarrosCARLI, CCDS Admit Date: 09/25/2018 12:57:00 PM Patient Name: Philip Bhardwaj Visit Number: [id number] Discharge Date: 09/28/2018 2:49:00 PM ATTENTION: The Clinical Documentation Specialists (CDI) and [facility] Coding Staff appreciate your assistance in clarifying documentation. Please respond to the clarification below the line at the bottom and electronically sign. The CDI & [facility] Coding staff will review the response and follow-up if needed. Please note: Queries are made part of the Legal Health Record. If you have any questions, please contact the author of this message via ITS. Dr. Dom Price: Per the discharge summary: "Acute on chronic Systolic congestive heart failure exacerbation. Hypoxic respiratory failure secondary to the above." History/Risk Factors: Atrial fibrillation, CABG, Aortic Valve replacement, Pulmonary fibrosis, COPD, CHF, Hypertension & former smoker. Clinical Indicators: Presented with SOB secondary to COPD & CHF. Cough & thick sputum, no home O2. VS: R 24 (cough, SOB), PO 91 RA LAB: Trop 0.039^, 0.050^, 0.063^ RAD: CXR: Fibrotic changes at the lung bases, mild atelectasis right lung base. No heart failure, progression of fibrosis & atelectasis right lung base. Treatment: Albuterol INH, IV Lasix, Nitro sl, IV Solumedrol, po Zithromax, po Lasix, po Levaquin, po Lopressor, O2 2Lnc. In your professional opinion, can you please clarify if these findings signify one of the following conditions? Acute Respiratory Failure Chronic Respiratory Failure Acute on Chronic Respiratory Failure o With Hypercapnia o With Hypoxia Other Diagnosis, please specify Unable to determine (Last Revision: August 2017) MTDD
== END 2018-09-28 14:49 | disposition home or self-care (01) | DRG 280 ==
LOC: EC 17:01 → 3SCARD 18:59 → 2SICU 09-25 00:57 → OBSVTOIN 09-25 12:57
PROVIDERS: ADMIT Family Medicine; ATTEND Family Medicine
DX: I11.0 Hypertensive heart disease with heart failure (principal); J96.02 Acute respiratory failure with hypercapnia; I21.A1 Myocardial infarction type 2; J96.01 Acute respiratory failure with hypoxia; J18.9 Pneumonia, unspecified organism; J84.9 Interstitial pulmonary disease, unspecified; J44.1 Chronic obstructive pulmonary disease with (acute) exacerbation; J44.0 Chronic obstructive pulmonary disease with (acute) lower respiratory infection; N42.89 Other specified disorders of prostate; I50.23 Acute on chronic systolic (congestive) heart failure; K21.9 Gastro-esophageal reflux disease without esophagitis; K59.00 Constipation, unspecified; E78.5 Hyperlipidemia, unspecified; I25.10 Atherosclerotic heart disease of native coronary artery without angina pectoris; I25.5 Ischemic cardiomyopathy; I48.2 Chronic atrial fibrillation; J84.10 Pulmonary fibrosis, unspecified; Z79.82 Long term (current) use of aspirin; Z79.899 Other long term (current) drug therapy; Z88.0 Allergy status to penicillin; Z95.1 Presence of aortocoronary bypass graft; Z90.49 Acquired absence of other specified parts of digestive tract; Z87.891 Personal history of nicotine dependence; Z95.2 Presence of prosthetic heart valve; Z88.8 Allergy status to other drugs, medicaments and biological substances
CPT/HCPCS: 36415; 71045; 71046; 80048; 80053; 83735; 83880; 84145; 84484; 85025; 85027; 85610; 85730; 93005; 93306; 94640; 96374; 99285

== ENCOUNTER → 2019-01-11 | Outpatient (CLI) | payer MEDICARE, BC | END | disposition home or self-care (01) | LOC: CPPFTMAIN 14:38 | PROVIDERS: ATTEND Internal Medicine Critical Care Medicine | DX: J44.9 Chronic obstructive pulmonary disease, unspecified (principal); R94.2 Abnormal results of pulmonary function studies | CPT/HCPCS: 94060; 94726; 94729 ==

== ENCOUNTER 2019-09-22 17:52 | Inpatient (IN) | payer MEDICARE, BC ==
--- NOTE | 2019-09-22 18:34 | ED ---
General Adult HPI - General Chief complaint: Shortness of Breath Stated complaint: SOB, weakness Time Seen by Provider: 09/22/19 18:09 Source: patient, family Mode of arrival: wheelchair Limitations: no limitations - History of Present Illness Initial comments: Dictation was produced using [employer] dictation software. please excuse any grammatical, word or spelling errors. This patient was cared for during a federal and state declared state of ergency secondary to Covid 19 Chief Complaint: 89-year-old male past nuchal history of atrial fibrillation, coronary artery disease, heart failure presents with exertional shortness of breath. History of Present Illness: Patient is 89-year-old male presents with exertional shortness of breath. Patient states the symptoms have been ongoing for the last 3-4 days. Today also noted that his mouth is really dry. Patient has any chest pain. He states that his dyspnea is more apparent especially recently with walking. He is obtainable place. Denies any cough. No fever, chills or night sweats. The ROS documented in this emergency department record has been reviewed and confirmed by me. Those systems with pertinent positive or negative responses have been documented in the HPI. All other systems are other negative and/or noncontributory. PHYSICAL EXAM: General Impression: Alert and oriented x3, not in acute distress HEENT: Normocephalic atraumatic, extra-ocular movements intact, pupils equal and reactive to light bilaterally, mucous membranes moist. Cardiovascular: Heart regular rate and rhythm Chest: Able to complete full sentences, no retractions, no tachypnea, clear to auscultation bilaterally Abdomen: abdomen soft, non-tender, non-distended, no organomegaly Musculoskeletal: Pulses present and equal in all extremities, no peripheral edema Motor: no focal deficits noted Neurological: CN II-XII grossly intact, no focal motor or sensory deficits noted Skin: Intact with no visualized rashes Psych: Normal affect and mood ED course: 89 y Old male presents with exertional dyspnea. All signs upon arrival are within acceptable limits. Patient has multiple comorbidities. Laboratory evaluation obtained. Anemia of 8.3. This is little bit lower than his baseline however he's had anemia in the past. Rest of CBC unremarkable. Coag panel unremarkable. Metabolic panel shows BUN of 80. This is likely prerenal. Troponin 0.05, bnp 0.05 which is around his baseline.. Chest x-ray is unremarkable. Patient reevaluated at bedside. Considering patient's age, comorbidities and lab abnormalities patient be admitted for observation for search poison cardiac consultation. Discussed patient case with Dr. Dom Price is agreeable. She reevaluated at bedside. He is in stable medical condition. He does not appear dyspneic or in any sort of distress. - Related Data Home Medications Medication Instructions Recorded Confirmed Aspirin 81 mg PO HS 03/02/16 09/24/18 Atorvastatin [Lipitor] 40 mg PO HS 03/02/16 09/24/18 Ipratropium-Albuterol Nebulize 3 ml INHALATION RT-QID PRN 03/02/16 09/24/18 [Duoneb 0.5 mg-3 mg/3 ml Soln] Pantoprazole Sodium [Protonix] 40 mg PO DAILY 03/02/16 09/24/18 Potassium Chloride ER [K-Dur 10] 10 meq PO AC-SUPPER 03/02/16 09/24/18 Tamsulosin HCl [Flomax] 0.4 mg PO DAILY@1200 04/09/16 09/24/18 ALPRAZolam [Xanax] 0.25 mg PO HS PRN 09/24/18 09/24/18 Previous Rx's Medication Instructions Recorded Losartan [Cozaar] 12.5 mg PO DAILY@1200 #30 tab 02/11/16 Nitroglycerin Sl Tabs [Nitrostat] 0.4 mg SUBLINGUAL Q5M PRN #0 tab 03/07/16 Furosemide [Lasix] 40 mg PO DAILY tab 09/27/18 Levofloxacin [Levaquin] 250 mg PO Q24H #5 tab 09/27/18 Metoprolol Tartrate [Lopressor] 25 mg PO TID #90 tab 09/27/18 Allergies Allergy/AdvReac Type Severity Reaction Status Date / Time Penicillins Allergy Rash/Hives Verified 09/22/19 17:59 cyclobenzaprine HCl AdvReac Confusion Verified 09/22/19 17:59 [From Flexeril] Review of Systems ROS Statement: Those systems with pertinent positive or pertinent negative responses have been documented in the HPI. ROS Other: All systems not noted in ROS Statement are negative. Past Medical History Past Medical History: Atrial Fibrillation, Heart Failure, GERD/Reflux, Hyperlipidemia, Hypertension Additional Past Medical History / Comment(s): edema, constipation History of Any Multi-Drug Resistant Organisms: None Reported Past Surgical History: Appendectomy, Coronary Bypass/CABG, Hernia Repair, Orthopedic Surgery Additional Past Surgical History / Comment(s): shoulder, ankle Past Anesthesia/Blood Transfusion Reactions: No Reported Reaction Past Psychological History: No Psychological Hx Reported Smoking Status: Former smoker Past Alcohol Use History: None Reported Past Drug Use History: None Reported - Past Family History Father History Unknown: Yes Mother History Unknown: Yes Additional Family Medical History / Comment(s): Pt states "both my parents were pretty healthy." General Exam Limitations: no limitations Course Vital Signs 09/22/19 09/22/19 17:54 19:08 Temperature 97.9 F Pulse Rate 95 90 Respiratory 18 18 Rate Blood Pressure 96/50 113/59 O2 Sat by Pulse 97 97 Oximetry Medical Decision Making - Lab Data Result diagrams: 09/22/19 18:35 09/22/19 18:35 Lab Results 09/22/19 09/22/19 09/22/19 Range/Units 18:35 18:35 18:35 WBC 9.3 (3.8-10.6) k/uL RBC 2.87 L (4.30-5.90) m/uL Hgb 8.3 L (13.0-17.5) gm/dL Hct 25.6 L (39.0-53.0) % MCV 89.1 (80.0-100.0) fL MCH 29.1 (25.0-35.0) pg MCHC 32.6 (31.0-37.0) g/dL RDW 15.3 (11.5-15.5) % Plt Count 165 (150-450) k/uL Neutrophils % 77 % Lymphocytes % 16 % Monocytes % 5 % Eosinophils % 1 % Basophils % 0 % Neutrophils # 7.1 (1.3-7.7) k/uL Lymphocytes # 1.5 (1.0-4.8) k/uL Monocytes # 0.4 (0-1.0) k/uL Eosinophils # 0.1 (0-0.7) k/uL Basophils # 0.0 (0-0.2) k/uL Hypochromasia Slight PT 11.2 (9.0-12.0) sec INR 1.1 (<1.2) APTT 22.0 (22.0-30.0) sec Sodium 137 (137-145) mmol/L Potassium 3.9 (3.5-5.1) mmol/L Chloride 106 (98-107) mmol/L Carbon Dioxide 23 (22-30) mmol/L Anion Gap 8 mmol/L BUN 80 H (9-20) mg/dL Creatinine 1.05 (0.66-1.25) mg/dL Est GFR (CKD-EPI)AfAm 73 (>60 ml/min/1.73 sqM) Est GFR (CKD-EPI)NonAf 64 (>60 ml/min/1.73 sqM) Glucose 104 H (74-99) mg/dL Plasma Lactic Acid Silvestre (0.7-2.0) mmol/L Calcium 8.9 (8.4-10.2) mg/dL Magnesium 2.3 (1.6-2.3) mg/dL Total Bilirubin 0.3 (0.2-1.3) mg/dL AST 26 (17-59) U/L ALT 15 (4-49) U/L Alkaline Phosphatase 69 (38-126) U/L Troponin I (0.000-0.034) ng/mL NT-Pro-B Natriuret Pep pg/mL Total Protein 5.9 L (6.3-8.2) g/dL Albumin 3.5 (3.5-5.0) g/dL 09/22/19 09/22/19 09/22/19 Range/Units 18:35 18:35 18:35 WBC (3.8-10.6) k/uL RBC (4.30-5.90) m/uL Hgb (13.0-17.5) gm/dL Hct (39.0-53.0) % MCV (80.0-100.0) fL MCH (25.0-35.0) pg MCHC (31.0-37.0) g/dL RDW (11.5-15.5) % Plt Count (150-450) k/uL Neutrophils % % Lymphocytes % % Monocytes % % Eosinophils % % Basophils % % Neutrophils # (1.3-7.7) k/uL Lymphocytes # (1.0-4.8) k/uL Monocytes # (0-1.0) k/uL Eosinophils # (0-0.7) k/uL Basophils # (0-0.2) k/uL Hypochromasia PT (9.0-12.0) sec INR (<1.2) APTT (22.0-30.0) sec Sodium (137-145) mmol/L Potassium (3.5-5.1) mmol/L Chloride (98-107) mmol/L Carbon Dioxide (22-30) mmol/L Anion Gap mmol/L BUN (9-20) mg/dL Creatinine (0.66-1.25) mg/dL Est GFR (CKD-EPI)AfAm (>60 ml/min/1.73 sqM) Est GFR (CKD-EPI)NonAf (>60 ml/min/1.73 sqM) Glucose (74-99) mg/dL Plasma Lactic Acid Silvestre 0.9 (0.7-2.0) mmol/L Calcium (8.4-10.2) mg/dL Magnesium (1.6-2.3) mg/dL Total Bilirubin (0.2-1.3) mg/dL AST (17-59) U/L ALT (4-49) U/L Alkaline Phosphatase (38-126) U/L Troponin I 0.050 H* (0.000-0.034) ng/mL NT-Pro-B Natriuret Pep 2140 pg/mL Total Protein (6.3-8.2) g/dL Albumin (3.5-5.0) g/dL Disposition Clinical Impression: Exertional dyspnea Disposition: ADMITTED IP TO THIS [facility] Condition: Fair Referrals: Dom Price DO [Primary Care Provider] - 1-2 days Decision Time: 20:46
[2019-09-22 18:49] LABS: Basophils % (A) 0 %; Eosinophils # (A) 0.1 k/uL (0-0.7); Eosinophils % (A) 1 %; HCT 25.6 % (39.0-53.0); HGB 8.3 gm/dL (13.0-17.5); Hypochromasia Slight; Lymphocytes # (A) 1.5 k/uL (1.0-4.8); Lymphocytes % (A) 16 %; MCH 29.1 pg (25.0-35.0); MCHC 32.6 g/dL (31.0-37.0); MCV 89.1 fL (80.0-100.0); Mean Platelet Volume 8.8; Monocytes # (A) 0.4 k/uL (0-1.0); Monocytes % (A) 5 %; Neutrophils # (A) 7.1 k/uL (1.3-7.7); Neutrophils % (A) 77 %; Platelet Count 165 k/uL (150-450); RBC 2.87 m/uL (4.30-5.90); RDW 15.3 % (11.5-15.5); WBC 9.3 k/uL (3.8-10.6)
[2019-09-22 18:56] LABS: Albumin 3.5 g/dL (3.5-5.0); Calcium 8.9 mg/dL (8.4-10.2); Magnesium 2.3 mg/dL (1.6-2.3); Potassium 3.9 mmol/L (3.5-5.1); Total Bilirubin 0.3 mg/dL (0.2-1.3); Total Protein 5.9 g/dL (6.3-8.2)
--- NOTE | 2019-09-22 19:09 | XR ---
EXAMINATION TYPE: XR chest 2V DATE OF EXAM: 09/22/2019 COMPARISON: 09/26/2018 HISTORY: Shortness of breath and fatigue.. TECHNIQUE: Frontal and lateral views of the chest are obtained. FINDINGS: Right hemidiaphragm elevation. There is no focal air space opacity, pleural effusion, or p neumothorax seen. The cardiac silhouette size is enlarged with post annuloplasty change. Tortuosity of the descending thoracic aorta is redemonstrated. Degenerative changes of the spine. The osseous st ructures are intact. Surgical hardware from a prior left clavicular fracture is redemonstrated. IMPRESSION: Chronic changes with no acute cardiopulmonary process.
[2019-09-22 19:28] LABS: INR 1.1 (<1.2); Prothrombin Time 11.2 sec (9.0-12.0)
[2019-09-22] MEDS ORDERED: NITROGLYCERIN SL TABS 0.4 MG TAB SUBLINGUAL PRN (20:41)
[2019-09-22] MEDS ORDERED: ASPIRIN 81 MG PO STA (20:41)
[2019-09-22] MEDS ORDERED: SODIUM CHLORIDE 0.9% 500 ML 500 ML IV STA (20:47)
[2019-09-22] MEDS: METOPROLOL TARTRATE 25 MG TAB PO SCH (22:25)
[2019-09-22] MEDS: ALPRAZolam 0.25 MG TAB PO PRN (22:25)
[2019-09-22] MEDS: ATORVASTATIN 40 MG TAB PO SCH (22:25)
[2019-09-23 07:41] LABS: Cholesterol 96 mg/dL (<200); HDL Cholesterol 30 mg/dL (40-60); LDL Cholesterol,Calculated 46 mg/dL (0-99); Triglycerides 102 mg/dL (<150)
[2019-09-23] MEDS: IPRATROPIUM-ALBUTEROL 3 ML NEB INHALATION PRN ×2 (07:48→19:58)
[2019-09-23] MEDS: METOPROLOL TARTRATE 25 MG TAB PO SCH ×2 (07:53→20:18)
[2019-09-23] MEDS ORDERED: ASPIRIN 325 MG TAB PO SCH (09:00)
[2019-09-23] MEDS: FUROSEMIDE 40 MG TAB PO SCH ×2 (09:03→16:03)
--- NOTE | 2019-09-23 10:43 | P.CRDCN ---
History of Present Illness Consult date: 09/23/19 Requesting physician: Dom Price Consult reason: shortness of breath Chief complaint: Shortness of breath History of present illness: This is a pleasant 89-year-old gentleman with history of coronary artery disease and prior bypass surgery, history of aortic valve replacement, hypertension, hyperlipidemia, paroxysmal atrial fibrillation, GERD, ischemic cardiomyopathy with documented ejection fraction of 20-25% in September 2018, not currently on anticoagulation. He presented to the hospital with symptoms of 3 day duration of progressively worsening shortness of breath, mostly exertional in nature. Chest x-ray showed chronic changes with no acute process. EKG showed normal sinus rhythm with occasional PVCs and mild inferior ST depression noted. Blood pressure 96/50 with a heart rate of 80, respirations 18, temperature 97.7, 96% on room air. White blood cell count 9.3, hemoglobin 8.3, platelet count 165. Sodium 137, potassium 3.9, BUN 80, creatinine 1.0. Troponin 0.05, 0.06. On rev iew of patient's multiple prior admissions to the hospital it is always noted that the patient has abnormality in his troponin. BNP level this admission 2140. We will request an echocardiogram with Doppler study be performed, decrease the dose of aspirin to 81 mg daily, resume the patient's angiotensin debi and by mouth Lasix. We will also obtain the office records, investigate further as to why the patient is not currently on anticoagulation. It is also noted that the patient's hemoglobin which is 8.3 was a drop from a hemoglobin of 12.3 in March. Past Medical History Past Medical History: Atrial Fibrillation, Heart Failure, GERD/Reflux, Hy perlipidemia, Hypertension Additional Past Medical History / Comment(s): edema, constipation History of Any Multi-Drug Resistant Organisms: None Reported Past Surgical History: Appendectomy, Coronary Bypass/CABG, Hernia Repair, Orthopedic Surgery Additional Past Surgical History / Comment(s): shoulder, ankle Past Anesthesia/Blood Transfusion Reactions: No Reported Reaction Past Psychological History: No Psychological Hx Reported Additional Psychological History / Comment(s): . Retired. The not related to service. No recent travels. No animal exposures Smoking Status: Former smoker Past Alcohol Use History: None Reported Past Drug Use History: None Reported - Past Family History Father History Unknown: Yes Mother History Unknown: Yes Additional Family Medical History / Comment(s): Pt states "both my parents were pretty healthy." Medications and Allergies Home Medications Medication Instructions Recorded Confirmed Type Losartan [Cozaar] 12.5 mg PO DAILY@1200 #30 tab 02/11/16 09/22/19 Rx Aspirin 81 mg PO HS@199903/02/16 09/22/19 History Atorvastatin [Lipitor] 40 mg PO HS@199903/02/16 09/22/19 History Ipratropium-Albuterol Nebulize 3 ml INHALATION RT-QID PRN 03/02/16 09/22/19 History [Duoneb 0.5 mg-3 mg/3 ml Soln] Pantoprazole Sodium [Protonix] 40 mg PO DAILY@0900 03/02/16 09/22/19 History Potassium Chloride ER [K-Dur 10] 10 meq PO AC-SUPPER@1700 03/02/16 09/22/19 History Nitroglycerin Sl Tabs [Nitrostat] 0.4 mg SUBLINGUAL Q5M PRN #0 tab 03/07/16 09/22/19 Rx Tamsulosin HCl [Flomax] 0.4 mg PO DAILY@1200 04/09/16 09/22/19 History ALPRAZolam [Xanax] 0.25 mg PO HS PRN 09/24/18 09/22/19 History Furosemide [Lasix] 40 mg PO BID@0900,1700 09/22/19 09/22/19 History Metoprolol Tartrate [Lopressor] 25 mg PO BID@0900,199909/22/19 09/22/19 History Allergies Allergy/AdvReac Type Severity Reaction Status Date / Time Penicillins Allergy Rash/Hives Verified 09/22/19 17:59 cyclobenzaprine HCl AdvReac Confusion Verified 09/22/19 17:59 [From Flexeril] Physical Exam Vitals: Vital Signs Temp Pulse Pulse Resp BP BP Pulse Ox 09/23/19 08:00 97.2 F L 80 81 18 106/61 100 09/23/19 07:50 80 09/23/19 03:22 97.7 F 81 17 96/53 96 09/22/19 23:23 98.2 F 100 17 122/66 97 09/22/19 21:38 105 H 16 107/58 98 09/22/19 19:08 90 18 113/59 97 09/22/19 17:54 97.9 F 95 18 96/50 97 Intake and Output 09/22/19 09/23/19 09/23/19 22:59 06:59 14:59 Output Total 600 Balance -600 Output: Urine 600 Other: # Voids 1 Weight 65.771 kg 67.6 kg PHYSICAL EXAMINATION: GENERAL: 89-year-old gentleman in no acute distress at the time of examination HEENT: Head is atraumatic, normocephalic. Pupils equal, round. Sclera anicteric. Conjunctiva are clear. Mucous membranes of the mouth are moist. Neck is supple. There is no elevated jugular venous pressure. No carotid bruit is heard. HEART EXAMINATION: Heart S1, S2 normal. No murmur or gallop heard. CHEST EXAMINATION: Lungs are clear to auscultation and precussion. No chest wall tenderness is noted on palpation or with deep breathing. ABDOMEN: Soft, nontender. Bowel sounds are heard. No organomegaly noted. EXTREMITIES: 2+ peripheral pulses with no evidence of peripheral edema and no calf tenderness noted. NEUROLOGIC patient is awake, alert and oriented 3 . . Results 09/22/19 18:35 09/22/19 18:35 Cardiac Enzymes 09/22/19 09/22/19 09/23/19 Range/Units 18:35 18:35 00:40 AST 26 (17-59) U/L Troponin I 0.050 H* 0.067 H* (0.000-0.034) ng/mL 09/23/19 Range/Units 07:06 AST (17-59) U/L Troponin I 0.063 H* (0.000-0.034) ng/mL Coagulation 09/22/19 Range/Units 18:35 PT 11.2 (9.0-12.0) sec APTT 22.0 (22.0-30.0) sec Lipids 09/23/19 Range/Units 07:06 Triglycerides 102 (<150) mg/dL Cholesterol 96 (<200) mg/dL HDL Cholesterol 30 L (40-60) mg/dL CBC 09/22/19 Range/Units 18:35 WBC 9.3 (3.8-10.6) k/uL RBC 2.87 L (4.30-5.90) m/uL Hgb 8.3 L (13.0-17.5) gm/dL Hct 25.6 L (39.0-53.0) % Plt Count 165 (150-450) k/uL Comprehensive Metabolic Panel 09/22/19 Range/Units 18:35 Sodium 137 (137-145) mmol/L Potassium 3.9 (3.5-5.1) mmol/L Chloride 106 (98-107) mmol/L Carbon Dioxide 23 (22-30) mmol/L BUN 80 H (9-20) mg/dL Creatinine 1.05 (0.66-1.25) mg/dL Glucose 104 H (74-99) mg/dL Calcium 8.9 (8.4-10.2) mg/dL AST 26 (17-59) U/L ALT 15 (4-49) U/L Alkaline Phosphatase 69 (38-126) U/L Total Protein 5.9 L (6.3-8.2) g/dL Albumin 3.5 (3.5-5.0) g/dL Current Medications Generic Name Dose Route Start Last Admin Trade Name Freq PRN Reason Stop Dose Admin Albuterol/Ipratropium 3 ml 09/22/19 22:12 09/23/19 07:48 Duoneb 0.5 Mg-3 Mg/3 Ml Soln INHALATION 3 ml RT-QID PRN Administration Shortness Of Breath Alprazolam 0.25 mg 09/22/19 22:12 09/22/19 22:25 Xanax PO 0.25 mg HS PRN Administration Insomnia Aspirin 81 mg 09/24/19 09:00 Aspirin PO DAILY [facility] Atorvastatin Calcium 40 mg 09/22/19 22:13 09/22/19 22:25 Lipitor PO 40 mg HS@1999 ANIL Administration Furosemide 40 mg 09/23/19 09:00 09/23/19 09:03 Lasix PO 40 mg BID@0900,1700 [facility] Administration Losartan Potassium 12.5 mg 09/23/19 12:00 Cozaar PO DAILY@1200 [facility] Metoprolol Tartrate 25 mg 09/22/19 22:13 09/23/19 07:53 Lopressor PO 25 mg BID@00,1999 [facility] Administration Nitroglycerin 0.4 mg 09/22/19 20:41 Nitrostat SUBLINGUAL Q5M PRN Chest Pain Intake and Output 09/22/19 09/23/19 09/23/19 22:59 06:59 14:59 Output Total 600 Balance -600 Output: Urine 600 Other: # Voids 1 Weight 65.771 kg 67.6 kg 09/22/19 18:35 09/22/19 18:35 EKG Interpretations (text) EKG shows normal sinus rhythm with occasional PVCs and mild inferior ST depression Assessment and Plan Plan: Assessment and plan #1 symptoms of shortness of breath, mostly exertional in nature, no evidence of chest discomfort. Chest x-ray revealed chronic changes with no acute changes noted. BNP mildly elevated at 2140 not suggestive of congestive heart failure exacerbation troponin 0.05, 0.06. #2 coronary artery disease with prior bypass surgery #3 history of aortic valve replacement #4 hypertension #5 hyperlipidemia #6 paroxysmal atrial fibrillation, not currently on anticoagulation #7 GERD #8 ischemic cardiomyopathy with documented ejection fraction of 20-25% by echo performed in September of last year #9 anemia, hemoglobin 8.3, could be contributing to symptoms of exertional shortness of breath. Hemoglobin in March was 12.3. Plan We will decrease aspirin to 81 mg daily, resume the angiotensin debi and by mouth Lasix. Obtain a repeat echocardiogram with Doppler study. We will also obtain the office records to investigate further by the patient is not on anticoagulation. Suggest a workup for anemia. Further recommendations to follow. DNP note has been reviewed, I agree with a documented findings and plan of care. Patient was seen and examined.
[2019-09-23] MEDS: LOSARTAN 25 MG TAB PO SCH (11:19)
--- NOTE | 2019-09-23 12:30 | ECHOF ---
Referral Reason:chf MEASUREMENTS -------- HEIGHT: 157.5 cm WEIGHT: 67.6 kg BP: RVIDd: 2.7 cm (< 3.3) IVSd: 1.2 cm (0.6 - 1.1) LVIDd: 3.6 cm (3.9 - 5.3) LVPWd: 1.1 cm (0.6 - 1.1) IVSs: 1.0 cm LVIDs: 3.0 cm LVPWs: 1.6 cm LAESV Index (A-L): 37.96 ml/m Ao Diam: 2.8 cm (2.0 - 3.7) AV Cusp: 1.4 cm (1.5 - 2.6) LA Diam: 4.7 cm (2.7 - 3.8) MV EXCURSION: 17.354 mm (> 18.000) MV EF SLOPE: 56 mm/s (70 - 150) EPSS: 1.0 cm MV E Zechariah: 1.09 m/s MV DecT: 169 ms MV A Zechariah: 0.93 m/s MV E/A Ratio: 1.18 AV maxP.60 mmHg AV meanP.55 mmHg AR PHT: 527 ms RAP: 5.00 mmHg RVSP: 14.77 mmHg FINDINGS -------- Sinus rhythm with extra systolic beats. This was a technically adequate study. The left ventricular size is normal. There is mild concentric left ventricular hypertrophy. Overa ll left ventricular systolic function is moderately impaired with, an EF between 35 - 40 %. Basal a nterior LV wall motion is hypokinetic. Basal inferior LV wall motion is hypokinetic. Basal infe roseptal LV wall motion is hypokinetic. Basal anteroseptal LV wall motion is hypokinetic. Mid a nterior LV wall motion is hypokinetic. Mid inferior LV wall motion is hypokinetic. Mid inferose ptal LV wall motion is hypokinetic. Mid anteroseptal LV wall motion is hypokinetic. The right ventricle is normal in size. LA is moderately dilated 34-39 ml/m2 The right atrial size is normal. Aortic valve is trileaflet and is mildly thickened. There is mild aortic valve sclerosis. Trace a mount of aortic regurgitation. Normally functioning bioprosthetic valve. The mitral valve is normal. The mitral valve leaflets are mildly thickened. Mild mitral annular c alcification present. [id number] mitral regurgitation is present. The tricuspid valve appears structurally normal. Mild tricuspid regurgitation present. Right vent ricular systolic pressure is normal at < 35 mmHg. There is no pulmonic regurgitation present. The aortic root size is normal. IVC Not well visulized. There is no pericardial effusion. CONCLUSIONS -------- 1. Sinus rhythm with extra systolic beats. 2. This was a technically adequate study. 3. The left ventricular size is normal. 4. There is mild concentric left ventricular hypertrophy. 5. Overall left ventricular systolic function is moderately impaired with, an EF between 35 - 40 %. 6. Basal anterior LV wall motion is hypokinetic. 7. Basal inferior LV wall motion is hypokinetic. 8. Basal inferoseptal LV wall motion is hypokinetic. 9. Basal anteroseptal LV wall motion is hypokinetic. 10. Mid anterior LV wall motion is hypokinetic. 11. Mid inferior LV wall motion is hypokinetic. 12. Mid inferoseptal LV wall motion is hypokinetic. 13. Mid anteroseptal LV wall motion is hypokinetic. 14. The right ventricle is normal in size. 15. LA is moderately dilated 34-39 ml/m2 16. The right atrial size is normal. 17. Aortic valve is trileaflet and is mildly thickened. 18. There is mild aortic valve sclerosis. 19. Trace amount of aortic regurgitation. 20. Normally functioning bioprosthetic valve. 21. The mitral valve is normal. 22. The mitral valve leaflets are mildly thickened. 23. Mild mitral annular calcification present. 24. [id number] mitral regurgitation is present. 25. The tricuspid valve appears structurally normal. 26. Mild tricuspid regurgitation present. 27. Right ventricular systolic pressure is normal at < 35 mmHg. 28. There is no pulmonic regurgitation present. 29. The aortic root size is normal. 30. IVC Not well visulized. 31. There is no pericardial effusion. LEAD HOUSEKEEPER: Kayce Alanis RDCS
--- NOTE | 2019-09-23 12:37 | P.HPIM ---
History of Present Illness H&P Date: 09/23/19 Chief Complaint: Shortness of breath This is an 89-year-old gentleman with history of CAD, CABG, paroxysmal atrial fibrillation, aortic valve replacement with tissue valve, CHF, gastroesophageal reflux disease, hyperlipidemia, hypertension, former nicotine dependence presented to the ER with complaints of shortness of breath, worsened by exertion. Occasional morning cough, reports minimal blood-tinged. Denies any nausea vomiting or diarrhea. Denies abdominal tenderness. Denies any hemoptysis and hematochezia or melena. Hemoglobin 8.3 with baseline around 12- 13, otherwise CBC,coag panel unremarkable. Denies any fever, chills. BUN 80, creatinine 1.05, creatinine near baseline. Denies chest pain, palpitations. Troponin 0.050, 0.067, 0.063, BNP 2140. EKG reported sinus rhythm with occasional PVCs, possible inferior/anterior infarct, age undetermined. Chest x- ray reported chronic changes with no acute cardiopulmonary process, tortuosity of the descending thoracic aorta redemonstrated. Electrolytes within normal limits. Review of Systems REVIEW OF SYSTEMS: CONSTITUTIONAL: No fever, no malaise, no fatigue. HEENT: No recent visual problems or hearing problems. Denied any sore throat. CARDIOVASCULAR: No chest pain, orthopnea, PND, no palpitations, no syncope. PULMONARY: N no hemoptysis. GASTROINTESTINAL: No diarrhea, no nausea, no vomiting, no abdominal pain. NEUROLOGICAL: No headaches, no weakness, no numbness. HEMATOLOGICAL: Denies any bleeding or petechiae. GENITOURINARY: Denies any burning micturition, frequency, or urgency. MUSCULOSKELETAL/RHEUMATOLOGICAL: Denies any joint pain, swelling, or any muscle pain. ENDOCRINE: Denies any polyuria or polydipsia. The rest of the 14-point review of systems is negative. Past Medical History Past Medical History: Atrial Fibrillation, Heart Failure, GERD/Reflux, Hyperlipidemia, Hypertension Additional Past Medical History / Comment(s): edema, constipation History of Any Multi-Drug Resistant Organisms: None Reported Past Surgical History: Appendectomy, Coronary Bypass/CABG, Hernia Repair, Orthopedic Surgery Additional Past Surgical History / Comment(s): shoulder, ankle Past Anesthesia/Blood Transfusion Reactions: No Reported Reaction Past Psychological History: No Psychological Hx Reported Additional Psychological History / Comment(s): . Retired. The not related to service. No recent travels. No animal exposures Smoking Status: Former smoker Past Alcohol Use History: None Reported Past Drug Use History: None Reported - Past Family History Father History Unknown: Yes Mother History Unknown: Yes Additional Family Medical History / Comment(s): Pt states "both my parents were pretty healthy." Medications and Allergies Home Medications Medication Instructions Recorded Confirmed Type Losartan [Cozaar] 12.5 mg PO DAILY@1200 #30 tab 02/11/16 09/22/19 Rx Aspirin 81 mg PO HS@199903/02/16 09/22/19 History Atorvastatin [Lipitor] 40 mg PO HS@199903/02/16 09/22/19 History Ipratropium-Albuterol Nebulize 3 ml INHALATION RT-QID PRN 03/02/16 09/22/19 History [Duoneb 0.5 mg-3 mg/3 ml Soln] Pantoprazole Sodium [Protonix] 40 mg PO DAILY@0900 03/02/16 09/22/19 History Potassium Chloride ER [K-Dur 10] 10 meq PO AC-SUPPER@1700 03/02/16 09/22/19 History Nitroglycerin Sl Tabs [Nitrostat] 0.4 mg SUBLINGUAL Q5M PRN #0 tab 03/07/16 09/22/19 Rx Tamsulosin HCl [Flomax] 0.4 mg PO DAILY@1200 04/09/16 09/22/19 History ALPRAZolam [Xanax] 0.25 mg PO HS PRN 09/24/18 09/22/19 History Furosemide [Lasix] 40 mg PO BID@0900,17009/22/19 09/22/19 History Metoprolol Tartrate [Lopressor] 25 mg PO BID@0900,199909/22/19 09/22/19 History Allergies Allergy/AdvReac Type Severity Reaction Status Date / Time Penicillins Allergy Rash/Hives Verified 09/22/19 17:59 cyclobenzaprine HCl AdvReac Confusion Verified 09/22/19 17:59 [From Flexeril] Physical Exam Vitals: Vital Signs Temp Pulse Pulse Resp BP BP Pulse Ox 09/23/19 08:00 97.2 F L 80 81 18 106/61 100 05/08/20 07:50 80 09/23/19 03:22 97.7 F 81 17 96/53 96 09/22/19 23:23 98.2 F 100 17 122/66 97 09/22/19 21:38 105 H 16 107/58 98 09/22/19 19:08 90 18 113/59 97 09/22/19 17:54 97.9 F 95 18 96/50 97 Intake and Output 09/22/19 09/23/19 09/23/19 22:59 06:59 14:59 Output Total 600 Balance -600 Output: Urine 600 Other: # Voids 1 Weight 65.771 kg 67.6 kg GENERAL: Sitting up in bed, alert and oriented x3, no acute distress. HEENT: Pupils are round and equally reacting to light. EOMI. No scleral icterus. No conjunctival pallor. Normocephalic, atraumatic. No pharyngeal erythema. No thyromegaly. No JVD CARDIOVASCULAR: S1 and S2 present. No murmurs, rubs, or gallops. PULMONARY:decreased air entry with significant expiratory wheezing on exam ABDOMEN: Soft, nontender, nondistended, normoactive bowel sounds. No palpable organomegaly. MUSCULOSKELETAL: No joint swelling or deformity. EXTREMITIES: No cyanosis, clubbing,trace left lower extremity edema. NEUROLOGICAL: Gross neurological examination did not reveal any focal deficits. SKIN: No rashes. Results CBC & Chem 7: 09/22/19 18:35 09/22/19 18:35 Labs: Abnormal Lab Results - Last 24 Hours (Table) 09/22/19 09/22/19 09/22/19 Range/Units 18:35 18:35 18:35 RBC 2.87 L (4.30-5.90) m/uL Hgb 8.3 L (13.0-17.5) gm/dL Hct 25.6 L (39.0-53.0) % BUN 80 H (9-20) mg/dL Glucose 104 H (74-99) mg/dL Troponin I 0.050 H* (0.000-0.034) ng/mL Total Protein 5.9 L (6.3-8.2) g/dL HDL Cholesterol (40-60) mg/dL 09/23/19 09/23/19 09/23/19 Range/Units 00:40 07:06 07:06 RBC (4.30-5.90) m/uL Hgb (13.0-17.5) gm/dL Hct (39.0-53.0) % BUN (9-20) mg/dL Glucose (74-99) mg/dL Troponin I 0.067 H* 0.063 H* (0.000-0.034) ng/mL Total Protein (6.3-8.2) g/dL HDL Cholesterol 30 L (40-60) mg/dL Thrombosis Risk Factor Assmnt - Choose All That Apply Any of the Below Risk Factors Present?: Yes Each Factor Represents 1 point: Obesity (BMI >25), Swollen legs (current) Other Risk Factors: Yes Each Risk Factor Represents 3 Points: Age 75 years or older Other congenital or acquired thrombophilia - If yes, enter type in comment: No Thrombosis Risk Factor Assessment Total Risk Factor Score: 5 Thrombosis Risk Factor Assessment Level: High Risk Assessment and Plan Assessment: -Shortness of breath secondary to possibly Acute on chronic CHF exacerbation, systolic dysfunction, possibly secondary to anemia -Acute on chronic anemia, baseline around 12-13. -Possibly mild acute on chronic renal failure, prerenal, stage II -Severe LV dysfunction , ischemic cardiomyopathy, chronic, EF 20-25% -Paroximal atrial fibrillation, currently on baby aspirin. -Interstitial lung disease -COPD -coronary arterydisease and CABG in the past -hypertension -Hyperlipidemia -Gastroesophageal reflux disease -mildly elevated troponin possibly secondary to hypoxemia and the congestive heart failure, cardiology following -benign prostatic atrophy Plan: Continue continue on current medication regime ,monitoring and symptomatic treatment. Echo pending Evaluated by cardiology with recommendations noted. GI prophylaxis with PPI. GI consulted for further anemia workup. Home meds have been reviewed and resumed accordingly. Close monitoring of hemoglobin with repeat labs ordered for a.m. The impression and plan of care has been dictated as directed. : I performed a history and examination of this patient, discussed the same with the dictator. I agree with the dictator's note ,documented as a scribe. Any additional findings or plans will be noted.
[2019-09-23] MEDS ORDERED: NITROGLYCERIN SL TABS 0.4 MG TAB SUBLINGUAL PRN (12:38)
[2019-09-23 13:16] LABS: Reticulocyte % 3.7 % (0.5-2.0)
[2019-09-23] MEDS: POTASSIUM CHLORIDE ER 10 MEQ TAB.ER.PRT PO SCH (16:03)
[2019-09-23] MEDS: PANTOPRAZOLE 40 MG/10 ML VIAL IVP SCH (16:03)
[2019-09-23 19:10] LABS: Ferritin 36.9 ng/mL (22.0-322.0)
[2019-09-23 19:36] LABS: % Iron Saturation 4.56 (15.00-50.00)
[2019-09-23] MEDS ORDERED: ASPIRIN 81 MG PO SCH (20:00)
[2019-09-23] MEDS: ATORVASTATIN 40 MG TAB PO SCH (20:18)
[2019-09-23] MEDS: ALPRAZolam 0.25 MG TAB PO PRN (20:18)
[2019-09-24 05:25] LABS: Folate, Serum 10.9 ng/mL
[2019-09-24 07:08] LABS: Basophils % (A) 1 %; Eosinophils # (A) 0.1 k/uL (0-0.7); Eosinophils % (A) 2 %; HCT 23.8 % (39.0-53.0); HGB 7.4 gm/dL (13.0-17.5); Hypochromasia Moderate; Lymphocytes # (A) 1.4 k/uL (1.0-4.8); Lymphocytes % (A) 20 %; MCH 28.4 pg (25.0-35.0); MCHC 31.2 g/dL (31.0-37.0); MCV 91.2 fL (80.0-100.0); Mean Platelet Volume 8.8; Monocytes # (A) 0.3 k/uL (0-1.0); Monocytes % (A) 4 %; Neutrophils # (A) 4.8 k/uL (1.3-7.7); Neutrophils % (A) 71 %; Platelet Count 168 k/uL (150-450); RBC 2.61 m/uL (4.30-5.90); WBC 6.7 k/uL (3.8-10.6)
[2019-09-24 07:29] LABS: Calcium 8.5 mg/dL (8.4-10.2); Potassium 3.7 mmol/L (3.5-5.1)
--- NOTE | 2019-09-24 07:48 | P.CONS ---
History of Present Illness - Reason for Consult Consult date: 09/23/19 Anemia Requesting physician: Dom Price - Chief Complaint Shortness of breath - History of Present Illness 89-year-old male with medical history significant for gastroesophageal reflux disease, hyperlipidemia, hypertension, prior nicotine dependence, CAD, prior CABG, paroxysmal atrial fibrillation, CHF and aortic valve replacement who presented to the hospital due to complaints of shortness of breath. The patient reports symptoms of a cough with occasional production without hemoptysis. He reports worsening shortness of breath bringing him to the hospital. He denies any change in bowel habits, constipation, diarrhea or blood per rectum. He denies any nausea or vomiting. No signs or symptoms of GI bleeding. He is unsure about his prior colonoscopic history. He denies any abdominal pain, unintentional weight loss or decreased oral intake. The patient was found to be anemic on presentation with a hemoglobin of 8.3 down from his baseline of 12-13. He does report Motrin use which he been taking up to one month ago approximately one to twice a day at that time. Review of Systems REVIEW OF SYSTEMS: CONSTITUTIONAL: Denies any fevers, chills, weight change or fatigue. CARDIOVASCULAR: Denies any chest pain, palpitations high or low blood pressures, does have a history of atrial fibrillation RESPIRATORY: Does report shortness of breath worse with exertion and cough with hemoptysis noted.. GENITOURINARY: No dysuria or hematuria. MUSCULOSKELETAL: No weakness reported. SKIN: Denies any new rashes or lesions, jaundice or pallor. PSYCHIATRIC: Denies any depression or anxiety. NEUROLOGY: Denies headache, denies any new focal deficits. EARS/NOSE/THROAT: No recent hearing change, congestion, nasal discharge or sore throat. EYES: No pain in eyes, discharge or change in vision. GASTROINTESTINAL: As per HPI. Past Medical History Past Medical History: Atrial Fibrillation, Heart Failure, GERD/Reflux, Hyperlipidemia, Hypertension Additional Past Medical History / Comment(s): edema, constipation History of Any Multi-Drug Resistant Organisms: None Reported Past Surgical History: Appendectomy, Coronary Bypass/CABG, Hernia Repair, Orthopedic Surgery Additional Past Surgical History / Comment(s): shoulder, ankle Past Anesthesia/Blood Transfusion Reactions: No Reported Reaction Past Psychological History: No Psychological Hx Reported Additional Psychological History / Comment(s): . Retired. The not related to service. No recent travels. No animal exposures Smoking Status: Former smoker Past Alcohol Use History: None Reported Past Drug Use History: None Reported - Past Family History Father History Unknown: Yes Mother History Unknown: Yes Additional Family Medical History / Comment(s): Pt states "both my parents were pretty healthy." Medications and Allergies Home Medications Medication Instructions Recorded Confirmed Type Losartan [Cozaar] 12.5 mg PO DAILY@1200 #30 tab 02/11/16 09/22/19 Rx Aspirin 81 mg PO HS@199903/02/16 09/22/19 History Atorvastatin [Lipitor] 40 mg PO HS@199903/02/16 09/22/19 History Ipratropium-Albuterol Nebulize 3 ml INHALATION RT-QID PRN 03/02/16 09/22/19 History [Duoneb 0.5 mg-3 mg/3 ml Soln] Pantoprazole Sodium [Protonix] 40 mg PO DAILY@0900 03/02/16 09/22/19 History Potassium Chloride ER [K-Dur 10] 10 meq PO AC-SUPPER@1700 03/02/16 09/22/19 History Nitroglycerin Sl Tabs [Nitrostat] 0.4 mg SUBLINGUAL Q5M PRN #0 tab 03/07/16 09/22/19 Rx Tamsulosin HCl [Flomax] 0.4 mg PO DAILY@1200 04/09/16 09/22/19 History ALPRAZolam [Xanax] 0.25 mg PO HS PRN 09/24/18 09/22/19 History Furosemide [Lasix] 40 mg PO BID@0900,17009/22/19 09/22/19 History Metoprolol Tartrate [Lopressor] 25 mg PO BID@0900,199909/22/19 09/22/19 History Allergies Allergy/AdvReac Type Severity Reaction Status Date / Time Penicillins Allergy Rash/Hives Verified 09/22/19 17:59 cyclobenzaprine HCl AdvReac Confusion Verified 09/22/19 17:59 [From Flexeril] Physical Exam Vitals: Vital Signs Temp Pulse Pulse Resp BP Pulse Ox 09/24/19 04:00 97.7 F 89 16 99/54 93 L 09/24/19 00:00 97.8 F 86 16 99/55 93 L 09/23/19 20:09 91 09/23/19 20:00 97.5 F L 87 16 98/56 96 09/23/19 19:58 91 95 09/23/19 16:00 97.8 F 89 16 88/45 94 L 09/23/19 11:24 97.3 F L 79 18 105/61 94 L 09/23/19 08:00 97.2 F L 80 81 18 106/61 100 09/23/19 07:50 80 Intake and Output 09/23/19 09/24/19 09/24/19 22:59 06:59 14:59 Intake Total 660 540 Output Total 0 200 Balance 660 340 Intake: Oral 660 540 Output: Urine 0 200 Other: Weight 65.1 kg On physical examination, patient appears comfortable in no apparent distress. HEAD: Normocephalic, atraumatic. EYES: No scleral icterus. No conjunctival injection. MOUTH: No lesions, tongue midline. NECK: Trachea midline, no gross abnormalities. CHEST: Clear to auscultation with no wheezing or rhonchi appreciated. HEART: S1-S2 appreciated. ABDOMEN: Soft, nontender to palpation. Bowel sounds are positive. No organomegaly. No guarding or rigidity. EXTREMITIES: No pedal edema. SKIN: No rashes, no jaundice. NEUROLOGIC: Alert and oriented x3. No focal deficits. Results CBC & Chem 7: 09/24/19 06:37 09/24/19 06:37 Labs: Abnormal Lab Results - Last 24 Hours (Table) 09/23/19 09/23/19 09/23/19 Range/Units 07:06 07:06 07:06 RBC (4.30-5.90) m/uL Hgb (13.0-17.5) gm/dL Hct (39.0-53.0) % RDW (11.5-15.5) % Retic Count 3.7 H (0.5-2.0) % Chloride (98-107) mmol/L BUN (9-20) mg/dL Iron (65-175) ug/dL % Saturation (15.00-50.00) Troponin I 0.063 H* (0.000-0.034) ng/mL HDL Cholesterol 30 L (40-60) mg/dL 09/23/19 09/24/19 09/24/19 Range/Units 07:06 06:37 06:37 RBC 2.61 L (4.30-5.90) m/uL Hgb 7.4 L (13.0-17.5) gm/dL Hct 23.8 L (39.0-53.0) % RDW 16.0 H (11.5-15.5) % Retic Count (0.5-2.0) % Chloride 108 H (98-107) mmol/L BUN 45 H (9-20) mg/dL Iron 14 L (65-175) ug/dL % Saturation 4.56 L (15.00-50.00) Troponin I (0.000-0.034) ng/mL HDL Cholesterol (40-60) mg/dL Chest x-ray: report reviewed (Chronic changes on chest x-ray with no acute cardiopulmonary changes noted) Assessment and Plan (1) Iron deficiency anemia Narrative/Plan: 89-year-old male with multiple medical comorbidities presenting due to shortness of breath and cough. He denies any signs or symptoms of GI bleeding. He has unknown endoscopic history but does believe he's had colonoscopy in the past. He does report daily Motrin use up until 1 month ago. Unclear etiology of anemia, however in the setting of NSAID use will plan for EGD to rule out upper GI source of bleeding from peptic ulcer disease, AVM, esophagitis, gastritis or other etiology. Current Visit: Yes Status: Acute Code(s): D50.9 - IRON DEFICIENCY ANEMIA, UNSPECIFIED SNOMED Code(s): 88538559 Plan: Supportive care Okay for diet Nothing by mouth after midnight Plan for EGD tomorrow for further evaluation Continue to monitor CBC and transfuse as needed Avoid NSAID use Protonix 40 mg twice daily IV iron infusions ordered Thank you for allowing us to participate in the care of the patient we will continue to follow
[2019-09-24] MEDS: ASPIRIN 81 MG PO SCH (07:56)
[2019-09-24] MEDS: FUROSEMIDE 40 MG TAB PO SCH ×2 (07:56→16:09)
[2019-09-24] MEDS: METOPROLOL TARTRATE 25 MG TAB PO SCH ×2 (07:57→19:55)
[2019-09-24] MEDS: PANTOPRAZOLE 40 MG/10 ML VIAL IVP SCH (08:04)
[2019-09-24] MEDS: SODIUM FERRIC GLUCONAT-SUCROSE 125 MG in SODIUM CHLORIDE 0.9% 100 ML IVPB SCH (08:52)
--- NOTE | 2019-09-24 10:11 | P.PN ---
Subjective This is a pleasant 89-year-old male past medical history significant for coronary artery disease status post bypass grafting, prosthetic aortic valve replacement, hypertension, dyslipidemia, ischemic cardiomyopathy with ejection fraction 20-25% and gastroesophageal reflux disease. He is seen and examined resting comfortably laying flat in no acute distress. He continues to complain of ongoing shortness of breath with minimal activity. He has been seen in evaluation by the GI team and is scheduled to undergo an EGD this afternoon. He states is feel difficult to swallow secondary to dry mouth. He denies chest pain, dizziness or palpitations. Blood pressure 104/59 heart rate 83 afebrile maintaining oxygen saturation on room air. Laboratory data reviewed, WBC 6.7, hemoglobin 7.4, platelets 168, sodium 141, potassium 3.7, creatinine 0.97. Currently maintained on Lopressor 25 mg twice a day, losartan 12.5 mg daily, Lasix 40 mg by mouth twice a day, atorvastatin 40 mg at bedtime and aspirin 81 mg daily. He has been initiated on iron infusion per GI. Echocardiogram reveals impaired LV systolic function with ejection fraction 35-40%, basal anterior, basal inferior, basal anteroseptal, basal anterior septal, mid anterio r, mid inferior, mid inferior septal and mid anterior septal wall motion hypokinesia. Normally functioning bioprosthetic aortic valve with mild sclerosis and trace regurgitation, mild to moderate MR and mild TR noted. Telemetry indicates frequent PVCs with persistent sinus mechanism. Review of office records indicate there is no documented history of a-fib in the past. GENERAL: Well-appearing, well-nourished and in no acute distress. NECK: Supple without JVD or thyromegaly. LUNGS: Breath sounds clear to auscultation bilaterally. Respiration equal and unlabored. No wheezes, rales or rhonchi. HEART: Irregular rate and rhythm with systolic ejection murmur at the left sternal border, no rubs or gallops. S1 and S2 heard. EXTREMITIES: Normal range of motion, no edema. No clubbing or cyanosis. Peripheral pulses intact. ASSESSMENT Exertional shortness of breath likely related to anemia Mild troponin elevation is not suggestive of an acute coronary event. Likely secondary to volume depletion and oxygen supply-demand mismatch Anemia Coronary artery disease status post bypass grafting Valvular heart disease status post prosthetic aortic valve replacement Hypertension Dyslipidemia Ischemic cardiomyopathy PLAN Continue current medical regimen. No prior documentation of atrial fibrillation in the past. Frequent PVC's noted on telemetry could be the cause of hearing of irregular heart beat. He has worn outpatient monitors in the past with persistent NSR. EGD today for further evaluation of anemia. Nurse Practitioner note has been reviewed, I agree with a documented findings an d plan of care. Patient was seen and examined. Objective - Vital Signs Vital signs: Vital Signs Temp 97.7 F 09/24/19 08:00 Pulse 83 09/24/19 08:01 Resp 16 09/24/19 08:01 BP 104/59 09/24/19 08:00 Pulse Ox 95 09/24/19 08:00 Intake & Output 09/23/19 09/24/19 09/24/19 18:59 06:59 18:59 Intake Total 360 1080 10 Output Total 200 Balance 360 880 10 Weight 65.1 kg Intake: IV 10 Invasive Line 1 10 Oral 360 1080 Output: Urine 200 - Labs CBC & Chem 7: 09/24/19 06:37 09/24/19 06:37 Labs: Abnormal Lab Results - Last 24 Hours (Table) 09/23/19 09/23/19 09/24/19 Range/Units 07:06 07:06 06:37 RBC 2.61 L (4.30-5.90) m/uL Hgb 7.4 L (13.0-17.5) gm/dL Hct 23.8 L (39.0-53.0) % RDW 16.0 H (11.5-15.5) % Retic Count 3.7 H (0.5-2.0) % Chloride (98-107) mmol/L BUN (9-20) mg/dL Iron 14 L (65-175) ug/dL % Saturation 4.56 L (15.00-50.00) 09/24/19 Range/Units 06:37 RBC (4.30-5.90) m/uL Hgb (13.0-17.5) gm/dL Hct (39.0-53.0) % RDW (11.5-15.5) % Retic Count (0.5-2.0) % Chloride 108 H (98-107) mmol/L BUN 45 H (9-20) mg/dL Iron (65-175) ug/dL % Saturation (15.00-50.00)
[2019-09-24] MEDS ORDERED: IV FLUID CONTINUATION 1,000 ML IV ONE (13:08)
[2019-09-24] MEDS ORDERED: PROPOFOL 10 MG/ML 20 ML VIAL IV ONE (13:09)
[2019-09-24] MEDS ORDERED: LIDOCAINE 1% INJ 10MG/ML (20 ML MDV) ONE (13:09)
--- NOTE | 2019-09-24 13:30 | P.PCN ---
Date of Procedure: 09/24/19 Description of Procedure: BRIEF HISTORY: 89-year-old male with medical history significant for gastroesophageal reflux disease, hyperlipidemia, hypertension, prior nicotine dependence, CAD, prior CABG, paroxysmal atrial fibrillation, CHF and aortic valve replacement who presented to the hospital due to complaints of shortness of breath. The patient reports symptoms of a cough with occasional production without hemoptysis. He reports worsening shortness of breath bringing him to the hospital. He denies any change in bowel habits, constipation, diarrhea or blood per rectum. He denies any nausea or vomiting. No signs or symptoms of GI bleeding. He is unsure about his prior colonoscopic history. He denies any abdominal pain, unintentional weight loss or decreased oral intake. The patient was found to be anemic on presentation with a hemoglobin of 8.3 down from his baseline of 12-13. He does report Motrin use which he been taking up to one month ago approximately one to twice a day at that time. PROCEDURE PERFORMED: Esophagogastroduodenoscopy with argon plasma coagulation therapy of angioectasia in the stomach and small bowel. PREOPERATIVE DIAGNOSIS: Anemia acute blood loss, GI bleed. ESTIMATED BLOOD LOSS: Minimal. IV sedation per anesthesia. PROCEDURE: After informed consent was obtained, the patient was brought into the endoscopy unit. IV sedation was administered by Anesthesia under continuous monitoring. Initially the Olympus GIF-190 video endoscope was inserted into the mouth. Esophagus intubated without any difficulty. It was gradually advanced into the stomach and duodenum and carefully examined. The bulb and the second part of the duodenum appeared normal, except for 1 diminutive nonbleeding angiectasia. The scope at this time was withdrawn to the stomach, adequately insufflated with air, and upon careful examination, mucosa of the antrum, body, cardia and the fundus appeared normal, except for a larger nonbleeding angiectasia in the body of the stomach along the minor curvature which was also treated with argon plasma coagulation therapy. The scope was then withdrawn into the esophagus. The GE junction was located at 35 cm from the incisors, a small 2 cm hiatal hernia was noted. The esophagus appeared normal. There were no erosions or ulcerations seen and the patient tolerated the procedure well. IMPRESSION: 1. 2 nonbleeding angiectasia one in the second portion of the duodenum and one in the stomach treated with argon plasma coagulation therapy. 2. No other sources of bleeding, old blood or active bleeding noted. 3. Small hiatal hernia. RECOMMENDATIONS: The findings of this examination were discussed with the patient. Okay for full liquid diet, advance to cardiac as tolerated. Continue to monitor hemoglobin and hematocrit and transfuse as needed. IV iron supplementation has been ordered. No further endoscopic evaluation at this time, patient is not interested in colonoscopic evaluation.
[2019-09-24] MEDS: LOSARTAN 25 MG TAB PO SCH (13:47)
[2019-09-24] MEDS: TAMSULOSIN 0.4 MG CAP.ER.24H PO SCH (13:48)
[2019-09-24] MEDS: POTASSIUM CHLORIDE ER 10 MEQ TAB.ER.PRT PO SCH (16:09)
[2019-09-24] MEDS: ATORVASTATIN 40 MG TAB PO SCH (19:55)
[2019-09-24] MEDS: ALPRAZolam 0.25 MG TAB PO PRN (19:57)
[2019-09-24] MEDS: IPRATROPIUM-ALBUTEROL 3 ML NEB INHALATION PRN (19:58)
[2019-09-25] MEDS: IPRATROPIUM-ALBUTEROL 3 ML NEB INHALATION PRN ×2 (07:35→19:42)
[2019-09-25 07:43] LABS: Anisocytosis Slight; HCT 24.8 % (39.0-53.0); HGB 7.7 gm/dL (13.0-17.5); Hypochromasia Moderate; MCH 28.6 pg (25.0-35.0); MCHC 31.2 g/dL (31.0-37.0); MCV 91.9 fL (80.0-100.0); Mean Platelet Volume 8.4; Platelet Count 183 k/uL (150-450); RDW 16.4 % (11.5-15.5); WBC 7.8 k/uL (3.8-10.6)
[2019-09-25 08:05] LABS: Calcium 8.5 mg/dL (8.4-10.2); Potassium 3.8 mmol/L (3.5-5.1)
[2019-09-25] MEDS: METOPROLOL TARTRATE 25 MG TAB PO SCH ×2 (08:46→20:15)
[2019-09-25] MEDS: SODIUM FERRIC GLUCONAT-SUCROSE 125 MG in SODIUM CHLORIDE 0.9% 100 ML IVPB SCH (08:46)
[2019-09-25] MEDS: FUROSEMIDE 40 MG TAB PO SCH ×2 (08:46→16:33)
[2019-09-25] MEDS: ASPIRIN 81 MG PO SCH (08:46)
[2019-09-25] MEDS: PANTOPRAZOLE 40 MG/10 ML VIAL IVP SCH (08:46)
--- NOTE | 2019-09-25 09:26 | P.PN ---
Subjective This is a pleasant 89-year-old male past medical history significant for coronary artery disease status post bypass grafting, prosthetic aortic valve replacement, hypertension, dyslipidemia, ischemic cardiomyopathy with ejection fraction 20-25% and gastroesophageal reflux disease. He follows in the office with Dr. Pearl. He is seen and examined sitting up in the chair in no acute distress. He underwent EGD yesterday revealing evidence of 2 areas of bleeding angiectasia were cauterized with argon plasma coagulation. Laboratory data reviewed, WBC 7.8, hemoglobin 7.7, platelets 183, sodium 138, potassium 3.8, creatinine 0.96. Blood pressure 97/52 heart rate 96 afebrile maintaining oxygen saturation on room air. Currently maintained on aspirin 81 mg daily, atorvastatin 40 mg daily, Lasix 40 mg by mouth twice a day, losartan 12.5 mg daily and Lopressor 25 mg twice a day. He continues to feel short of breath with mild exertion or activity around his room. He denies chest pain, dizziness or palpitations. GENERAL: Well-appearing, well-nourished and in no acute distress. NECK: Supple without JVD or thyromegaly. LUNGS: Breath sounds clear to auscultation bilaterally. Respiration equal and unlabored at rest. No wheezes, rales or rhonchi. HEART: Irregular rate and rhythm with systolic ejection murmur at the left sternal border, no rubs or gallops. S1 and S2 heard. EXTREMITIES: Normal range of motion, no edema. No clubbing or cyanosis. Peripheral pulses intact. ASSESSMENT Exertional shortness of breath likely related to anemia Mild troponin elevation is not suggestive of an acute coronary event. Likely secondary to volume depletion and oxygen supply-demand mismatch Anemia Coronary artery disease status post bypass grafting Valvular heart disease status post prosthetic aortic valve replacement Hypertension Dyslipidemia Ischemic cardiomyopathy PLAN Repeat CBC and BMP in the morning. Continue to monitor for another 24 hours given his ongoing symptomatic anemia. Nurse Practitioner note has been reviewed, I agree with a documented findings and plan of care. Patient was seen and examined. Objective - Vital Signs Vital signs: Vital Signs Temp 98.0 F 09/25/19 04:00 Pulse 96 09/25/19 07:45 Resp 16 09/25/19 04:00 BP 97/52 09/25/19 04:00 Pulse Ox 94 L 09/25/19 04:00 Intake & Output 05/02/0409/25/19 09/25/19 18:59 06:59 18:59 Intake Total 370 300 180 Output Total 100 Balance 270 300 180 Weight 64.5 kg Intake: IV 370 Invasive Line 1 10 Sodium Ferric Gluconat- 100 Sucrose 125 mg In Sodium Chloride 0.9% 100 ml @ 100 mls/hr IVPB DAILY [facility] Rx#:[id number] saline 160 Oral 300 180 Output: Urine 100 Other: Voiding Method Urinal Urinal # Voids 2 2 - Labs CBC & Chem 7: 09/25/19 06:57 09/25/19 06:56 Labs: Abnormal Lab Results - Last 24 Hours (Table) 09/25/19 09/25/19 Range/Units 06:56 06:57 RBC 2.70 L (4.30-5.90) m/uL Hgb 7.7 L (13.0-17.5) gm/dL Hct 24.8 L (39.0-53.0) % RDW 16.4 H (11.5-15.5) % BUN 24 H (9-20) mg/dL Glucose 100 H (74-99) mg/dL
[2019-09-25] MEDS: LOSARTAN 25 MG TAB PO SCH (11:53)
[2019-09-25] MEDS: TAMSULOSIN 0.4 MG CAP.ER.24H PO SCH (11:53)
[2019-09-25] MEDS: POTASSIUM CHLORIDE ER 10 MEQ TAB.ER.PRT PO SCH (16:33)
--- NOTE | 2019-09-25 18:10 | P.PN ---
Subjective Progress Note Date: 09/25/19 Principal diagnosis: Iron deficiency anemia, gastric and small bowel angioectasia Patient is seen sitting bedside with no acute complaints. Tolerating diet. No signs or symptoms of GI bleed. Objective - Vital Signs Vital signs: Vital Signs Temp 98.0 F 09/25/19 04:00 Pulse 96 09/25/19 07:45 Resp 16 09/25/19 04:00 BP 97/52 09/25/19 04:00 Pulse Ox 94 L 09/25/19 04:00 Intake & Output 09/24/19 09/25/19 09/25/19 18:59 06:59 18:59 Intake Total 370 300 180 Output Total 100 Balance 270 300 180 Weight 64.5 kg Intake: IV 370 Invasive Line 1 10 Sodium Ferric Gluconat- 100 Sucrose 125 mg In Sodium Chloride 0.9% 100 ml @ 100 mls/hr IVPB DAILY [facility] Rx#:[id number] saline 160 Oral 300 180 Output: Urine 100 Other: Voiding Method Urinal Urinal # Voids 2 2 - Exam On physical examination, patient appears comfortable in no apparent distress. HEAD: Normocephalic, atraumatic. EYES: No scleral icterus. No conjunctival injection. MOUTH: No lesions, tongue midline. NECK: Trachea midline, no gross abnormalities. ABDOMEN: Soft, nontender to palpation. Bowel sounds are positive. No organomegaly. No guarding or rigidity. EXTREMITIES: No pedal edema. SKIN: No rashes, no jaundice. NEUROLOGIC: Alert and oriented x3. No focal deficits. - Labs CBC & Chem 7: 09/25/19 06:57 09/25/19 06:56 Labs: Abnormal Lab Results - Last 24 Hours (Table) 09/25/19 09/25/19 Range/Units 06:56 06:57 RBC 2.70 L (4.30-5.90) m/uL Hgb 7.7 L (13.0-17.5) gm/dL Hct 24.8 L (39.0-53.0) % RDW 16.4 H (11.5-15.5) % BUN 24 H (9-20) mg/dL Glucose 100 H (74-99) mg/dL Assessment and Plan (1) Iron deficiency anemia Narrative/Plan: 89-year-old male with multiple medical comorbidities presenting due to shortness of breath and cough. He denies any signs or symptoms of GI bleeding. He has unknown endoscopic history but does believe he's had colonoscopy in the past. He does report daily Motrin use up until 1 month ago. EGD was performed with findings of nonbleeding angioectasia in the stomach and small bowel which were treated with coagulation therapy. Hemoglobin has remained stable. Current Visit: Yes Status: Acute Code(s): D50.9 - IRON DEFICIENCY ANEMIA, UNSPECIFIED SNOMED Code(s): 39570204 (2) Gastric and duodenal angiodysplasia Current Visit: Yes Status: Acute Code(s): K31.819 - ANGIODYSPLASIA OF STOMACH AND DUODENUM WITHOUT BLEEDING SNOMED Code(s): 553786860 Plan: Supportive care Okay for diet Continue to monitor CBC and transfuse as needed Avoid NSAID use Protonix 40 mg twice daily IV iron infusions ordered Okay for discharge when otherwise medically stable from gastroenterology standpoint Thank you for allowing us to participate in the care of the patient the gastroenterology service will stand by, please call us back with any questions or concerns
[2019-09-25] MEDS: ALPRAZolam 0.25 MG TAB PO PRN (20:15)
[2019-09-25] MEDS: ATORVASTATIN 40 MG TAB PO SCH (20:15)
--- NOTE | 2019-09-25 22:27 | P.PN ---
Subjective Progress Note Date: 09/24/19 Principal diagnosis: Symptomatic anemia This is an 89-year-old gentleman with history of CAD, CABG, questionable history of paroxysmal atrial fibrillation, aortic valve replacement with tissue valve, CHF, gastroesophageal reflux disease, hyperlipidemia, hypertension, former [place]yson [place] dependence presented to the ER with complaints of shortness of breath, worsened by exertion. Occasional morning cough, reports minimal blood-tinged. Denies any nausea vomiting or diarrhea. Denies abdominal tenderness. Denies any hemoptysis and hematochezia or melena. Hemoglobin 8.3 with baseline around 12-13, otherwise CBC,coag panel unremarkable. Denies any fever, chills. BUN 80, creatinine 1.05, creatinine near baseline. Denies chest pain, palpitations. Troponin 0.050, 0.067, 0.063, BNP 2140. EKG reported sinus rhythm with occasional PVCs, possible inferior/anterior infarct, age undetermined. Chest x- ray reported chronic changes with no acute cardiopulmonary process, tortuosity of the descending thoracic aorta redemonstrated. Electrolytes within normal limits. 09/24/2019 Patient is currently lying in the bed comfortably. Hemoglobin level is 7.4 today. Patient is being scheduled for EGD today afternoon. Denied any complaints of chest pain. Shortness of breath seems to be increased compared to admission. Still having shortness of breath with minimal exertion. Currently on Lasix 40 mg twice daily and other cardiac medications. Patient was also started on IV iron infusions as per GI due to deficiency. Patient is also on IV Protonix. 2-D echocardiogram showed LV systolic dysfunction with ejection fraction 35-40% with septal motion hypokinesia. Normally functioning bioprosthetic aortic valve with mild sclerosis and trace regurgitation, mild to moderate MR and mild TR noted. Telemetry showed frequent PVCs with persistent sinus mechanism. Cardiology is on board. No prior documentation of A. fib in the past. No nausea vomiting or diarrhea. No abdominal pain. Current medications reviewed. Objective - Vital Signs Vital signs: Vital Signs Temp 97.7 F 09/24/19 08:00 Pulse 83 09/24/19 08:01 Resp 16 09/24/19 08:01 BP 104/59 09/24/19 08:00 Pulse Ox 95 09/24/19 08:00 Intake & Output 09/23/19 09/24/19 09/24/19 18:59 06:59 18:59 Intake Total 360 1080 10 Output Total 200 Balance 360 880 10 Weight 65.1 kg Intake: IV 10 Invasive Line 1 10 Oral 360 1080 Output: Urine 200 - Exam GENERAL: Sitting up in bed, alert and oriented x3, no acute distress. HEENT: Pupils are round and equally reacting to light. EOMI. No scleral icterus. No conjunctival pallor. Normocephalic, atraumatic. No pharyngeal erythema. No thyromegaly. No JVD CARDIOVASCULAR: S1 and S2 present. No murmurs, rubs, or gallops. PULMONARY:decreased air entry with significant expiratory wheezing on exam ABDOMEN: Soft, nontender, nondistended, normoactive bowel sounds. No palpable organomegaly. MUSCULOSKELETAL: No joint swelling or deformity. EXTREMITIES: No cyanosis, clubbing,trace left lower extremity edema. NEUROLOGICAL: Gross neurological examination did not reveal any focal deficits. SKIN: Intact, No rashes. Psychiatric: coOperative. Nonsuicidal. - Labs CBC & Chem 7: 09/25/19 06:57 09/25/19 06:56 Labs: Abnormal Lab Results - Last 24 Hours (Table) 09/23/19 09/23/19 09/24/19 Range/Units 07:06 07:06 06:37 RBC 2.61 L (4.30-5.90) m/uL Hgb 7.4 L (13.0-17.5) gm/dL Hct 23.8 L (39.0-53.0) % RDW 16.0 H (11.5-15.5) % Retic Count 3.7 H (0.5-2.0) % Chloride (98-107) mmol/L BUN (9-20) mg/dL Iron 14 L (65-175) ug/dL % Saturation 4.56 L (15.00-50.00) 09/24/19 Range/Units 06:37 RBC (4.30-5.90) m/uL Hgb (13.0-17.5) gm/dL Hct (39.0-53.0) % RDW (11.5-15.5) % Retic Count (0.5-2.0) % Chloride 108 H (98-107) mmol/L BUN 45 H (9-20) mg/dL Iron (65-175) ug/dL % Saturation (15.00-50.00) Assessment and Plan Assessment: -Shortness of breath secondary to possibly Acute on chronic CHF exacerbation, systolic dysfunction, possibly secondary to anemia -Symptomatic anemia -Acute on chronic anemia, baseline around 12-13. -Possibly mild acute on chronic renal failure, prerenal, stage II -Severe LV dysfunction , ischemic cardiomyopathy, chronic, EF 20-25%. Repeat echocardiogram showed EF 35-40% -Frequent PVCs with persistent sinus mechanism. No prior history of atrial fibrillation documented.. -Interstitial lung disease -COPD -coronary arterydisease and CABG in the past -Valvular heart disease status post prosthetic aortic valve replacement -hypertension -Hyperlipidemia -Gastroesophageal reflux disease -mildly elevated troponin possibly secondary to hypoxemia and the congestive heart failure, cardiology following -benign prostatic atrophy Plan: Patient will be continued on telemetry monitoring. Continue with PPI and monitor H&H closely. Patient was also started on IV iron infusion. GI is mackenzie nning for EGD. Continue with home medications. Cardiology recommends no further intervention at this time. 2-D echocardiogram report reviewed. Further recommendations based on the clinical course. Time with Patient: Greater than 30
--- NOTE | 2019-09-25 22:32 | P.PN ---
Subjective Progress Note Date: 09/25/19 Principal diagnosis: Symptomatic anemia This is an 89-year-old gentleman with history of CAD, CABG, questionable history of paroxysmal atrial fibrillation, aortic valve replacement with tissue valve, CHF, gastroesophageal reflux disease, hyperlipidemia, hypertension, former tyson [place] dependence presented to the ER with complaints of shortness of breath, worsened by exertion. Occasional morning cough, reports minimal blood-tinged. Denies any nausea vomiting or diarrhea. Denies abdominal tenderness. Denies any hemoptysis and hematochezia or melena. Hemoglobin 8.3 with baseline around 12-13, otherwise CBC,coag panel unremarkable. Denies any fever, chills. BUN 80, creatinine 1.05, creatinine near baseline. Denies chest pain, palpitations. Troponin 0.050, 0.067, 0.063, BNP 2140. EKG reported sinus rhythm with occasional PVCs, possible inferior/anterior infarct, age undetermined. Chest x- ray reported chronic changes with no acute cardiopulmonary process, tortuosity of the descending thoracic aorta redemonstrated. Electrolytes within normal limits. 09/24/2019 Patient is currently lying in the bed comfortably. Hemoglobin level is 7.4 today. Patient is being scheduled for EGD today afternoon. Denied any complaints of chest pain. Shortness of breath seems to be increased compared to admission. Still having shortness of breath with minimal exertion. Currently on Lasix 40 mg twice daily and other cardiac medications. Patient was also started on IV iron infusions as per GI due to deficiency. Patient is also on IV Protonix. 2-D echocardiogram showed LV systolic dysfunction with ejection fraction 35-40% with septal motion hypokinesia. Normally functioning bioprosthetic aortic valve with mild sclerosis and trace regurgitation, mild to moderate MR and mild TR noted. Telemetry showed frequent PVCs with persistent sinus mechanism. Cardiology is on board. No prior documentation of A. fib in the past. No nausea vomiting or diarrhea. No abdominal pain. 09/25/2019 Patient is status post EGD on 09/24/2019 IMPRESSION: 1. 2 nonbleeding angiectasia one in the second portion of the duodenum and one in the stomach treated with argon plasma coagulation therapy. 2. No other sources of bleeding, old blood or active bleeding noted. 3. Small hiatal hernia. Hemoglobin level improved to 7.7. Patient is currently ambulating in the room. No complaints of dark-colored stools. Shortness breath is improved. Patient is maintained on Protonix twice daily Started on liquid diet and advance as tolerated. Continued on IV infusions iron. No complaints of chest pain. No headache or dizziness or lightheadedness. Anticipate discharge in the next 24-48 hours. Current medications reviewed. Objective - Vital Signs Vital signs: Vital Signs Temp 98.3 F 09/25/19 20:00 Pulse 97 09/25/19 20:00 Resp 16 09/25/19 20:00 BP 103/53 09/25/19 20:00 Pulse Ox 98 09/25/19 20:00 Intake & Output 09/25/19 09/25/19 09/26/19 06:59 18:59 06:59 Intake Total 300 910 Balance 300 910 Weight 64.5 kg Intake: IV 30 Invasive Line 2 30 Oral 300 880 Other: Voiding Method Urinal Urinal Urinal # Voids 2 1 - Exam GENERAL: Sitting up in bed, alert and oriented x3, no acute distress. HEENT: Pupils are round and equally reacting to light. EOMI. No scleral icterus. No conjunctival pallor. Normocephalic, atraumatic. No pharyngeal erythema. No thyromegaly. No JVD CARDIOVASCULAR: S1 and S2 present. No murmurs, rubs, or gallops. PULMONARY:decreased air entry with significant expiratory wheezing on exam ABDOMEN: Soft, nontender, nondistended, normoactive bowel sounds. No palpable organomegaly. MUSCULOSKELETAL: No joint swelling or deformity. EXTREMITIES: No cyanosis, clubbing,trace left lower extremity edema. NEUROLOGICAL: Gross neurological examination did not reveal any focal deficits. SKIN: Intact, No rashes. Psychiatric: coOperative. Nonsuicidal. - Labs CBC & Chem 7: 09/25/19 06:57 09/25/19 06:56 Labs: Abnormal Lab Results - Last 24 Hours (Table) 09/25/19 09/25/19 Range/Units 06:56 06:57 RBC 2.70 L (4.30-5.90) m/uL Hgb 7.7 L (13.0-17.5) gm/dL Hct 24.8 L (39.0-53.0) % RDW 16.4 H (11.5-15.5) % BUN 24 H (9-20) mg/dL Glucose 100 H (74-99) mg/dL Assessment and Plan Assessment: -Shortness of breath secondary to possibly Acute on chronic CHF exacerbation, systolic dysfunction, possibly secondary to anemia -Symptomatic anemia -Acute on chronic anemia, baseline around 12-13. Status post EGD. -Gastric and duodenal angiectasia -Possibly mild acute on chronic renal failure, prerenal, stage II -Severe LV dysfunction , ischemic cardiomyopathy, chronic, EF 20-25%. Repeat echocardiogram showed EF 35-40% -Frequent PVCs with persistent sinus mechanism. No prior history of atrial fibrillation documented.. -Interstitial lung disease -COPD -coronary arterydisease and CABG in the past -Valvular heart disease status post prosthetic aortic valve replacement -hypertension -Hyperlipidemia -Gastroesophageal reflux disease -mildly elevated troponin possibly secondary to hypoxemia and the congestive heart failure, cardiology following -benign prostatic atrophy Plan: Patient will be continued on telemetry monitoring. Continue with PPI and monitor H&H closely. Patient was also started on IV iron infusion. Patient is status post EGD. Continue with home medications. Cardiology recommends no further intervention at this time. 2-D echocardiogram report reviewed. Further recommendations based on the clinical course. Time with Patient: Greater than 30
[2019-09-26] MEDS ORDERED: PANTOPRAZOLE 40 MG TABLET PO SCH (07:30)
[2019-09-26 07:31] LABS: Anisocytosis Slight; HCT 23.2 % (39.0-53.0); HGB 7.2 gm/dL (13.0-17.5); Hypochromasia Marked; MCH 28.5 pg (25.0-35.0); Mean Platelet Volume 8.4; Platelet Count 174 k/uL (150-450); RBC 2.53 m/uL (4.30-5.90); RDW 16.7 % (11.5-15.5); WBC 6.6 k/uL (3.8-10.6)
[2019-09-26 07:40] LABS: Calcium 8.7 mg/dL (8.4-10.2); Potassium 3.8 mmol/L (3.5-5.1)
[2019-09-26] MEDS: SODIUM FERRIC GLUCONAT-SUCROSE 125 MG in SODIUM CHLORIDE 0.9% 100 ML IVPB SCH (08:32)
[2019-09-26] MEDS: ASPIRIN 81 MG PO SCH (08:33)
[2019-09-26] MEDS: METOPROLOL TARTRATE 25 MG TAB PO SCH (08:33)
[2019-09-26] MEDS: FUROSEMIDE 40 MG TAB PO SCH (08:33)
[2019-09-26] MEDS: IPRATROPIUM-ALBUTEROL 3 ML NEB INHALATION PRN (08:44)
[2019-09-26 09:52] VITALS: BP 95/52; PULSE 95; RESP 16; TEMP 97.7
--- NOTE | 2019-09-26 11:01 | P.DS ---
Providers Date of admission: 09/23/19 13:34 Expected date of discharge: 09/26/19 Attending physician: Dom Price Consults: 09/22/19 20:41 Consult Physician Urgent Consulting Provider: John Pearl Consult Reason/Comments: exertional dyspnea Do you want consulting provider notified?: Yes GI, Dr. Tolentino Primary care physician: Dom Price [facility] Course: Final Diagnoses: -Shortness of breath secondary to anemia. Status post EGD reporting :2 nonbleeding angiectasia, gastric and duodenal, treated with argon plasma coagulation therapy. No other sources of bleeding, old blood or active bleeding noted. Small hiatal hernia. -Acute on chronic anemia, baseline around 12-13. Iron deficient -Possibly mild acute on chronic renal failure, prerenal, stage II -Chronic CHF exacerbation, systolic dysfunction -Severe LV dysfunction , ischemic cardiomyopathy, chronic, EF 20-25% -Paroximal atrial fibrillation, currently on baby aspirin. -Interstitial lung disease -COPD -coronary arterydisease and CABG in the past -hypertension -Hyperlipidemia -Gastroesophageal reflux disease -mildly elevated troponin possibly secondary to hypoxemia and the congestive heart failure, cardiology following -benign prostatic atrophy Hospital course:This is an 89-year-old gentleman with history of CAD, CABG, paroxysmal atrial fibrillation, aortic valve replacement with tissue valve, CHF, gastroesophageal reflux disease, hyperlipidemia, hypertension, former nicotine dependence presented to the ER with complaints of shortness of breath, worsened by exertion. Occasional morning cough, reports minimal blood-tinged. Denies any nausea vomiting or diarrhea. Denies abdominal tenderness. Denies any hemoptysis and hematochezia or melena. Hemoglobin 8.3 with baseline around 12- 13, otherwise CBC,coag panel unremarkable. Denies any fever, chills. BUN 80, creatinine 1.05, creatinine near baseline. Denies chest pain, palpitations. Troponin 0.050, 0.067, 0.063, BNP 2140. EKG reported sinus rhythm with occasional PVCs, possible inferior/anterior infarct, age undetermined. Chest x- ray reported chronic changes with no acute cardiopulmonary process, tortuosity of the descending thoracic aorta redemonstrated. Electrolytes within normal limits. 09/24/2019 Patient is currently lying in the bed comfortably. Hemoglobin level is 7.4 today. Patient is being scheduled for EGD today afternoon. Denied any complaints of chest pain. Shortness of breath seems to be increased compared to admission. Still having shortness of breath with minimal exertion. Currently on Lasix 40 mg twice daily and other cardiac medications. Patient was also started on IV iron infusions as per GI due to deficiency. Patient is also on IV Protonix. 2-D echocardiogram showed LV systolic dysfunction with ejection fraction 35-40% with septal motion hypokinesia. Normally functioning bioprosthetic aortic valve with mild sclerosis and trace regurgitation, mild to moderate MR and mild TR noted. Telemetry showed frequent PVCs with persistent sinus mechanism. Cardiology is on board. No prior documentation of A. fib in the past. No nausea vomiting or diarrhea. No abdominal pain. Status post EGD reporting 2 nonbleeding angiectasia one in the second portion of the duodenum and one in the stomach treated with argon plasma coagulation therapy. No other sources of bleeding, old blood or active bleeding noted. Small hiatal hernia. Maintained on Protonix twice a day, IV iron. Significant clinical improvement.Denies chest pain, palpitations or shortness of breath. Tolerating diet.. Hemoglobin 7.2. No bleeding reported.Significant clinical improvement. Cleared by all consults for discharge. Patient is being discharged home in a stable condition with guarded prognosis. The impression and plan of care has been dictated as directed. : I performed a history and examination of this patient, discussed the same with the dictator. I agree with the dictator's note ,documented as a scribe. Any additional findings or plans will be noted. Patient Condition at Discharge: Stable Plan - Discharge Summary Discharge Rx Participant: Yes New Discharge Prescriptions: Continue Losartan [Cozaar] 12.5 mg PO DAILY@1200 #30 tab Ipratropium-Albuterol Nebulize [Duoneb 0.5 mg-3 mg/3 ml Soln] 3 ml INHALATION RT-QID PRN PRN Reason: Shortness Of Breath Potassium Chloride ER [K-Dur 10] 10 meq PO AC-SUPPER@1700 Atorvastatin [Lipitor] 40 mg PO HS@2000 Aspirin 81 mg PO HS@2000 Nitroglycerin Sl Tabs [Nitrostat] 0.4 mg SUBLINGUAL Q5M PRN #0 tab PRN Reason: Chest Pain Tamsulosin HCl [Flomax] 0.4 mg PO DAILY@1200 ALPRAZolam [Xanax] 0.25 mg PO HS PRN PRN Reason: Insomnia Metoprolol Tartrate [Lopressor] 25 mg PO BID@09,1999 Furosemide [Lasix] 40 mg PO BID@0900,1700 Changed Pantoprazole Sodium [Protonix] 40 mg PO BID #60 tab Discharge Medication List Losartan [Cozaar] 12.5 mg PO DAILY@1200 #30 tab 02/11/16 [Rx] Aspirin 81 mg PO HS@199903/02/16 [History] Atorvastatin [Lipitor] 40 mg PO HS@199903/02/16 [History] Ipratropium-Albuterol Nebulize [Duoneb 0.5 mg-3 mg/3 ml Soln] 3 ml INHALATION RT-QID PRN 03/02/16 [History] Potassium Chloride ER [K-Dur 10] 10 meq PO AC-SUPPER@169903/02/16 [History] Nitroglycerin Sl Tabs [Nitrostat] 0.4 mg SUBLINGUAL Q5M PRN #0 tab 03/07/16 [Rx] Tamsulosin HCl [Flomax] 0.4 mg PO DAILY@1200 04/09/16 [History] ALPRAZolam [Xanax] 0.25 mg PO HS PRN 09/24/18 [History] Furosemide [Lasix] 40 mg PO BID@0900,1700 09/22/19 [History] Metoprolol Tartrate [Lopressor] 25 mg PO BID@09,199909/22/19 [History] Pantoprazole Sodium [Protonix] 40 mg PO BID #60 tab 09/26/19 [Rx] Follow up Appointment(s)/Referral(s): [facility] [Provider Group] - 1 Week (Please call on Thursday to schedule a telephone follow up appointment with your viscera washer.) Dom Price DO [Primary Care Provider] - 1-2 days (Please call on Thursday to schedule follow up appointment with your primary provider. ) Gerardo Tolentino MD [STAFF PHYSICIAN] - 3 Weeks (Please call office on Thursday to schedule a telephone follow up appointment after having your GI scope.) Ambulatory/Diagnostic Orders: Complete Blood Count w/diff [LAB.AMB] Time Frame: 3 Days, Location: None Selected Patient Instructions/Handouts: Gastrointestinal Bleeding (DC), Diet for Stomach Ulcers and Gastritis (ED), Iron Deficiency Anemia (DC), Upper Endoscopy (DC) Activity/Diet/Wound Care/Special Instructions: Cardiology cleared for discharge.
[2019-09-26] MEDS: TAMSULOSIN 0.4 MG CAP.ER.24H PO SCH (11:15)
[2019-09-26] MEDS: LOSARTAN 25 MG TAB PO SCH (11:15)
[2019-09-26] MEDS ORDERED: SENNOSIDES-DOCUSATE SODIUM 1 EACH TAB PO SCH (11:15)
--- NOTE | 2019-09-26 11:28 | P.PN ---
Subjective Progress Note Date: 09/26/19 This is a pleasant 89-year-old gentleman with history of coronary artery disease and prior bypass surgery, history of aortic valve replacement, hypertension, hyperlipidemia, paroxysmal atrial fibrillation, GERD, ischemic cardiomyopathy with documented ejection fraction of 20-25% in September 2018, not currently on anticoagulation. He presented to the hospital with symptoms of 3 day duration of progressively worsening shortness of breath, mostly exertional in nature. Chest x-ray showed chronic changes with no acute process. EKG showed normal sinus rhythm with occasional PVCs and mild inferior ST depression noted. Blood pressure 96/50 with a heart rate of 80, respirations 18, temperature 97.7, 96% on room air. White blood cell count 9.3, hemoglobin 8.3, platelet count 165. Sodium 137, potassium 3.9, BUN 80, creatinine 1.0. Troponin 0.05, 0.06. On review of patient's multiple prior admissions to the hospital it is always noted that the patient has abnormality in his troponin. BNP level this admission 2140. We will request an echocardiogram with Doppler study be performed, decrease the dose of aspirin to 81 mg daily, resume the patient's angiotensin debi and by mouth Lasix. We will also obtain the office records, investigate further as to why the patient is not currently on anticoagulation. It is also noted that the patient's hemoglobin which is 8.3 was a drop from a hemoglobin of 12.3 in March. 09/26/2019 Patient was seen and examined this morning, overall doing well today. Blood pressure 95/50 with a heart rate in the 80s to 90s, white blood cell count 6.6, hemoglobin 7.2, platelet count 174. Sodium 136, potassium 3.8, BUN 22, creatinine 1.0. Objective - Vital Signs Vital signs: Vital Signs Temp 97.7 F 09/26/19 08:30 Pulse 92 09/26/19 08:54 Resp 16 09/26/19 08:36 BP 95/52 09/26/19 08:30 Pulse Ox 95 09/26/19 08:44 Intake & Output 09/25/19 09/26/19 09/26/19 18:59 06:59 18:59 Intake Total 910 250 Output Total 800 Balance 910 -800 250 Weight 65 kg Intake: IV 30 10 Invasive Line 2 30 10 Oral 880 240 Output: Urine 800 Other: Voiding Method Urinal Urinal Urinal # Voids 1 - Exam PHYSICAL EXAMINATION: GENERAL: 89-year-old gentleman in no acute distress at the time of examination HEENT: Head is atraumatic, normocephalic. Pupils equal, round. Sclera anicteric. Conjunctiva are clear. Mucous membranes of the mouth are moist. Neck is supple. There is no elevated jugular venous pressure. No carotid bruit is heard. HEART EXAMINATION: Heart S1, S2 normal. No murmur or gallop heard. CHEST EXAMINATION: Lungs are clear to auscultation and precussion. No chest wall tenderness is noted on palpation or with deep breathing. ABDOMEN: Soft, nontender. Bowel sounds are heard. No organomegaly noted. EXTREMITIES: 2+ peripheral pulses with no evidence of peripheral edema and no calf tenderness noted. NEUROLOGIC patient is awake, alert and oriented 3 . - Labs CBC & Chem 7: 09/26/19 06:45 09/26/19 06:45 Labs: Abnormal Lab Results - Last 24 Hours (Table) 09/26/19 09/26/19 Range/Units 06:45 06:45 RBC 2.53 L (4.30-5.90) m/uL Hgb 7.2 L (13.0-17.5) gm/dL Hct 23.2 L (39.0-53.0) % RDW 16.7 H (11.5-15.5) % Sodium 136 L (137-145) mmol/L BUN 22 H (9-20) mg/dL Assessment and Plan Plan: Assessment and plan #1 symptoms of shortness of breath, mostly exertional in nature, no evidence of chest discomfort. Chest x-ray revealed chronic changes with no acute changes noted. BNP mildly elevated at 2140 not suggestive of congestive heart failure exacerbation troponin 0.05, 0.06. #2 coronary artery disease with prior bypass surgery #3 history of aortic valve replacement #4 hypertension #5 hyperlipidemia #6 paroxysmal atrial fibrillation, not currently on anticoagulation #7 GERD #8 ischemic cardiomyopathy with documented ejection fraction of 20-25% by echo performed in September of last year #9 anemia, hemoglobin 8.3, could be contributing to symptoms of exertional shortness of breath. Hemoglobin in March was 12.3. Plan From cardiology's perspective, patient may be able to be discharged home today, we'll make him a follow-up appointment in the office post discharge. DNP note has been reviewed, I agree with a documented findings and plan of care. Patient was seen and examined.
== END 2019-09-26 12:50 | disposition home or self-care (01) | DRG 811 ==
LOC: EC 17:52 → 3SCARD 20:41 → OBSVTOIN 09-23 13:34
PROVIDERS: ADMIT Family Medicine; ATTEND Family Medicine
PROC: 0W3P8ZZ Control Bleeding in Gastrointestinal Tract, Via Natural or Artificial Opening Endoscopic (ICD-10-PCS; principal; 2019-09-24 13:55)
DX: D50.9 Iron deficiency anemia, unspecified (principal); I50.23 Acute on chronic systolic (congestive) heart failure; I13.0 Hypertensive heart and chronic kidney disease with heart failure and stage 1 through stage 4 chronic kidney disease, or unspecified chronic kidney disease; N17.9 Acute kidney failure, unspecified; J84.9 Interstitial pulmonary disease, unspecified; K31.819 Angiodysplasia of stomach and duodenum without bleeding; I48.0 Paroxysmal atrial fibrillation; J44.9 Chronic obstructive pulmonary disease, unspecified; E78.5 Hyperlipidemia, unspecified; N18.2 Chronic kidney disease, stage 2 (mild); Z20.828 Contact with and (suspected) exposure to other viral communicable diseases; K44.9 Diaphragmatic hernia without obstruction or gangrene; I25.5 Ischemic cardiomyopathy; E86.9 Volume depletion, unspecified; I08.1 Rheumatic disorders of both mitral and tricuspid valves; I49.3 Ventricular premature depolarization; N40.0 Benign prostatic hyperplasia without lower urinary tract symptoms; I25.10 Atherosclerotic heart disease of native coronary artery without angina pectoris; K21.9 Gastro-esophageal reflux disease without esophagitis; K59.00 Constipation, unspecified; I25.2 Old myocardial infarction; R79.89 Other specified abnormal findings of blood chemistry; Z79.82 Long term (current) use of aspirin; Z79.899 Other long term (current) drug therapy; Z95.1 Presence of aortocoronary bypass graft; Z98.890 Other specified postprocedural states; Z90.49 Acquired absence of other specified parts of digestive tract; Z87.891 Personal history of nicotine dependence; Z88.0 Allergy status to penicillin; Z88.8 Allergy status to other drugs, medicaments and biological substances; Z95.3 Presence of xenogenic heart valve
CPT/HCPCS: 36415; 43270; 71046; 80048; 80053; 80061; 82607; 82728; 82746; 83540; 83550; 83605; 83735; 83880; 84484; 85025; 85027; 85045; 85610; 85730; 87635; 93005; 93306; 94640; 94760; 99285

== ENCOUNTER 2019-09-29 09:27 | Inpatient (IN) | payer MEDICARE, BC ==
--- NOTE | 2019-09-29 09:57 | ED ---
General Adult HPI - General Chief complaint: Dizziness Stated complaint: SOB, dizzy, weakness Time Seen by Provider: 09/29/19 09:36 Source: patient Mode of arrival: wheelchair Limitations: physical limitation - History of Present Illness Initial comments: The patient is an 81-year-old male with past medical history of A. fib, heart failure, hypertension who presents to the emergency room with reported exertional shortness of breath and dizziness. The patient was recently hospitalized and discharged on the . He is hospice for a GI bleed. Patient states that when he went home he felt well over the past couple of days has decompensated. States that even combing his hair makes him short of breath. She admits to presyncope without syncopal episode. Any chest pain. No cough or hemoptysis. No fevers or chills. Denies abdominal pain. No ataxia, headaches, unilateral numbness or weakness. Admits to brown stooling. Denies black or bloody stools. Patient currently takes a baby aspirin however has no further anticoagulation. He does report to cramping calf pain that wakes him up from his sleep. There are no other alleviating, precipitating or modifying factors - Related Data Home Medications Medication Instructions Recorded Confirmed Aspirin 81 mg PO HS@199903/02/16 09/29/19 Atorvastatin [Lipitor] 40 mg PO HS@199903/02/16 09/29/19 Ipratropium-Albuterol Nebulize 3 ml INHALATION RT-QID PRN 03/02/16 09/29/19 [Duoneb 0.5 mg-3 mg/3 ml Soln] Potassium Chloride ER [K-Dur 10] 10 meq PO AC-SUPPER@169903/02/16 09/29/19 Tamsulosin HCl [Flomax] 0.4 mg PO DAILY@1200 04/09/16 09/29/19 ALPRAZolam [Xanax] 0.25 mg PO HS PRN 09/24/18 09/29/19 Furosemide [Lasix] 40 mg PO BID@0900,169909/22/19 09/29/19 Metoprolol Tartrate [Lopressor] 25 mg PO BID@899,199909/22/19 09/29/19 Pantoprazole Sodium [Protonix] 40 mg PO BID@09,199909/29/19 09/29/19 Previous Rx's Medication Instructions Recorded Losartan [Cozaar] 12.5 mg PO DAILY@1200 #30 tab 02/11/16 Nitroglycerin Sl Tabs [Nitrostat] 0.4 mg SUBLINGUAL Q5M PRN #0 tab 03/07/16 Allergies Allergy/AdvReac Type Severity Reaction Status Date / Time Penicillins Allergy Rash/Hives Verified 09/29/19 12:16 cyclobenzaprine HCl AdvReac Confusion Verified 09/29/19 12:16 [From Flexeril] Review of Systems ROS Statement: Those systems with pertinent positive or pertinent negative responses have been documented in the HPI. ROS Other: All systems not noted in ROS Statement are negative. Past Medical History Past Medical History: Atrial Fibrillation, Heart Failure, GERD/Reflux, Hyperlipidemia, Hypertension Additional Past Medical History / Comment(s): edema, constipation History of Any Multi-Drug Resistant Organisms: None Reported Past Surgical History: Appendectomy, Coronary Bypass/CABG, Hernia Repair, Orthopedic Surgery Additional Past Surgical History / Comment(s): shoulder, ankle Past Anesthesia/Blood Transfusion Reactions: No Reported Reaction Past Psychological History: No Psychological Hx Reported Smoking Status: Former smoker Past Alcohol Use History: None Reported Past Drug Use History: None Reported - Past Family History Father History Unknown: Yes Mother History Unknown: Yes Additional Family Medical History / Comment(s): Pt states "both my parents were pretty healthy." General Exam Limitations: physical limitation General appearance: alert, in no apparent distress Head exam: Present: atraumatic, normocephalic, normal inspection Eye exam: Present: normal appearance, PERRL, EOMI. Absent: scleral icterus, conjunctival injection, periorbital swelling ENT exam: Present: normal exam, mucous membranes moist Neck exam: Present: normal inspection. Absent: tenderness, meningismus, lymphadenopathy Respiratory exam: Present: normal lung sounds bilaterally. Absent: respiratory distress, wheezes, rales, rhonchi, stridor Cardiovascular Exam: Present: regular rate, normal rhythm, normal heart sounds. Absent: systolic murmur, diastolic murmur, rubs, gallop, clicks GI/Abdominal exam: Present: soft, normal bowel sounds. Absent: distended, t enderness, guarding, rebound, rigid Extremities exam: Present: normal inspection, full ROM, normal capillary refill, other (pulses equal in all 4 extremities). Absent: tenderness, pedal edema, joint swelling, calf tenderness Back exam: Present: normal inspection Neurological exam: Present: alert, oriented X3, CN II-XII intact Psychiatric exam: Present: normal affect, normal mood Skin exam: Present: warm, dry, intact, normal color. Absent: rash Course Vital Signs 09/29/19 09/29/19 09/29/19 09:31 09:45 10:00 Temperature 98.0 F Pulse Rate 82 75 Respiratory 18 20 Rate Blood Pressure 104/57 O2 Sat by Pulse 99 97 95 Oximetry 09/29/19 09/29/19 09/29/19 11:00 12:00 13:00 Temperature Pulse Rate 75 79 78 Respiratory 20 20 19 Rate Blood Pressure 110/71 116/71 123/67 O2 Sat by Pulse 95 95 97 Oximetry 09/29/19 09/29/19 09/29/19 14:00 15:00 16:00 Temperature Pulse Rate 79 77 75 Respiratory 19 18 18 Rate Blood Pressure 122/67 106/57 112/60 O2 Sat by Pulse 96 97 96 Oximetry 09/29/19 09/29/19 17:00 18:00 Temperature 97.9 F Pulse Rate 75 78 Respiratory 18 18 Rate Blood Pressure 110/60 127/69 O2 Sat by Pulse 96 97 Oximetry EKG Findings - EKG Comments: EKG Findings:: EKG demonstrates a sinus rhythm with a ventricular rate of 73. NJ interval to 16. QRS 102. QTC 462. PVCs present. No acute ST segment elevation. Mild ST depression V6. Medical Decision Making - Medical Decision Making Upon arrival the patient is placed into room 2. A thorough history and physical exam is performed. Peripheral IV is established. Laboratory studies were conducted. He will open stable at 8.3. D-dimer elevated at 2.8. Creatinine 1.3. Troponin 0.068 [place] 5570. Chest CT is performed because of the patient's reported symptoms with elevated d-dimer. If fails to demonstrate a pulmonary embolism and however there is a small aortic ulcer in the descending aorta with possible limited associated dissection. Because of these abnormal results I did discuss the case with Dr. Mcdonough at 11:55 am. He states the patient may be hospitalized at [facility] and will evaluate the patient tomorrow. At that time she may repeat CT imaging therefore she requested fluid hydration. The patient states that he would not undergo surgery at this time however if the patient changes his mind after vascular evaluation the patient may be transferred per Dr. Mcdonough. The patient was in agreement with this treatment plan. He'll be admitted to Dr. Price. He is currently awaiting a bed on the floor - Lab Data Result diagrams: 09/30/19 05:36 09/30/19 05:36 Lab Results 09/29/19 09/29/19 09/29/19 Range/Units 09:57 09:57 09:57 WBC 7.1 (3.8-10.6) k/uL RBC 2.94 L (4.30-5.90) m/uL Hgb 8.3 L (13.0-17.5) gm/dL Hct 28.0 L (39.0-53.0) % MCV 95.3 (80.0-100.0) fL MCH 28.0 (25.0-35.0) pg MCHC 29.4 L (31.0-37.0) g/dL RDW 18.8 H (11.5-15.5) % Plt Count 222 (150-450) k/uL Neutrophils % 78 % Lymphocytes % 13 % Monocytes % 5 % Eosinophils % 2 % Basophils % 0 % Neutrophils # 5.5 (1.3-7.7) k/uL Lymphocytes # 0.9 L (1.0-4.8) k/uL Monocytes # 0.4 (0-1.0) k/uL Eosinophils # 0.2 (0-0.7) k/uL Basophils # 0.0 (0-0.2) k/uL Hypochromasia Marked Anisocytosis Slight Macrocytosis Slight PT 10.7 (9.0-12.0) sec INR 1.0 (<1.2) APTT 22.0 (22.0-30.0) sec D-Dimer 2.80 H (<0.60) mg/L FEU Sodium 141 (137-145) mmol/L Potassium 3.6 (3.5-5.1) mmol/L Chloride 105 (98-107) mmol/L Carbon Dioxide 25 (22-30) mmol/L Anion Gap 11 mmol/L BUN 26 H (9-20) mg/dL Creatinine 1.35 H (0.66-1.25) mg/dL Est GFR (CKD-EPI)AfAm 54 (>60 ml/min/1.73 sqM) Est GFR (CKD-EPI)NonAf 47 (>60 ml/min/1.73 sqM) Glucose 113 H (74-99) mg/dL POC Glucose (mg/dL) (75-99) mg/dL POC Glu Hand Bander ID Plasma Lactic Acid Silvestre (0.7-2.0) mmol/L Calcium 8.9 (8.4-10.2) mg/dL Magnesium 2.3 (1.6-2.3) mg/dL Total Bilirubin 0.4 (0.2-1.3) mg/dL AST 32 (17-59) U/L ALT 21 (4-49) U/L Alkaline Phosphatase 85 (38-126) U/L Troponin I (0.000-0.034) ng/mL NT-Pro-B Natriuret Pep pg/mL Total Protein 6.4 (6.3-8.2) g/dL Albumin 4.0 (3.5-5.0) g/dL 09/29/19 09/29/19 09/29/19 Range/Units 09:57 09:57 09:57 WBC (3.8-10.6) k/uL RBC (4.30-5.90) m/uL Hgb (13.0-17.5) gm/dL Hct (39.0-53.0) % MCV (80.0-100.0) fL MCH (25.0-35.0) pg MCHC (31.0-37.0) g/dL RDW (11.5-15.5) % Plt Count (150-450) k/uL Neutrophils % % Lymphocytes % % Monocytes % % Eosinophils % % Basophils % % Neutrophils # (1.3-7.7) k/uL Lymphocytes # (1.0-4.8) k/uL Monocytes # (0-1.0) k/uL Eosinophils # (0-0.7) k/uL Basophils # (0-0.2) k/uL Hypochromasia Anisocytosis Macrocytosis PT (9.0-12.0) sec INR (<1.2) APTT (22.0-30.0) sec D-Dimer (<0.60) mg/L FEU Sodium (137-145) mmol/L Potassium (3.5-5.1) mmol/L Chloride (98-107) mmol/L Carbon Dioxide (22-30) mmol/L Anion Gap mmol/L BUN (9-20) mg/dL Creatinine (0.66-1.25) mg/dL Est GFR (CKD-EPI)AfAm (>60 ml/min/1.73 sqM) Est GFR (CKD-EPI)NonAf (>60 ml/min/1.73 sqM) Glucose (74-99) mg/dL POC Glucose (mg/dL) (75-99) mg/dL POC Glu Hand Bander ID Plasma Lactic Acid Silvestre 1.5 (0.7-2.0) mmol/L Calcium (8.4-10.2) mg/dL Magnesium (1.6-2.3) mg/dL Total Bilirubin (0.2-1.3) mg/dL AST (17-59) U/L ALT (4-49) U/L Alkaline Phosphatase (38-126) U/L Troponin I 0.068 H* (0.000-0.034) ng/mL NT-Pro-B Natriuret Pep 5570 pg/mL Total Protein (6.3-8.2) g/dL Albumin (3.5-5.0) g/dL 09/29/19 09/29/19 09/29/19 Range/Units 15:14 19:05 22:29 WBC (3.8-10.6) k/uL RBC (4.30-5.90) m/uL Hgb (13.0-17.5) gm/dL Hct (39.0-53.0) % MCV (80.0-100.0) fL MCH (25.0-35.0) pg MCHC (31.0-37.0) g/dL RDW (11.5-15.5) % Plt Count (150-450) k/uL Neutrophils % % Lymphocytes % % Monocytes % % Eosinophils % % Basophils % % Neutrophils # (1.3-7.7) k/uL Lymphocytes # (1.0-4.8) k/uL Monocytes # (0-1.0) k/uL Eosinophils # (0-0.7) k/uL Basophils # (0-0.2) k/uL Hypochromasia Anisocytosis Macrocytosis PT (9.0-12.0) sec INR (<1.2) APTT (22.0-30.0) sec D-Dimer (<0.60) mg/L FEU Sodium (137-145) mmol/L Potassium (3.5-5.1) mmol/L Chloride (98-107) mmol/L Carbon Dioxide (22-30) mmol/L Anion Gap mmol/L BUN (9-20) mg/dL Creatinine (0.66-1.25) mg/dL Est GFR (CKD-EPI)AfAm (>60 ml/min/1.73 sqM) Est GFR (CKD-EPI)NonAf (>60 ml/min/1.73 sqM) Glucose (74-99) mg/dL POC Glucose (mg/dL) 176 H (75-99) mg/dL POC Glu Hand Bander ID Maged, Norma Plasma Lactic Acid Silvestre (0.7-2.0) mmol/L Calcium (8.4-10.2) mg/dL Magnesium (1.6-2.3) mg/dL Total Bilirubin (0.2-1.3) mg/dL AST (17-59) U/L ALT (4-49) U/L Alkaline Phosphatase (38-126) U/L Troponin I 0.067 H* 0.088 H* (0.000-0.034) ng/mL NT-Pro-B Natriuret Pep pg/mL Total Protein (6.3-8.2) g/dL Albumin (3.5-5.0) g/dL 09/30/19 09/30/19 Range/Units 05:36 05:36 WBC 7.0 (3.8-10.6) k/uL RBC 2.61 L (4.30-5.90) m/uL Hgb 7.6 L (13.0-17.5) gm/dL Hct 24.9 L (39.0-53.0) % MCV 95.6 (80.0-100.0) fL MCH 29.1 (25.0-35.0) pg MCHC 30.5 L (31.0-37.0) g/dL RDW 18.4 H (11.5-15.5) % Plt Count 203 (150-450) k/uL Neutrophils % 71 % Lymphocytes % 16 % Monocytes % 6 % Eosinophils % 4 % Basophils % 0 % Neutrophils # 4.9 (1.3-7.7) k/uL Lymphocytes # 1.1 (1.0-4.8) k/uL Monocytes # 0.5 (0-1.0) k/uL Eosinophils # 0.3 (0-0.7) k/uL Basophils # 0.0 (0-0.2) k/uL Hypochromasia Marked Anisocytosis Slight Macrocytosis Slight PT (9.0-12.0) sec INR (<1.2) APTT (22.0-30.0) sec D-Dimer (<0.60) mg/L FEU Sodium 138 (137-145) mmol/L Potassium 3.7 (3.5-5.1) mmol/L Chloride 106 (98-107) mmol/L Carbon Dioxide 29 (22-30) mmol/L Anion Gap 3 mmol/L BUN 22 H (9-20) mg/dL Creatinine 1.19 (0.66-1.25) mg/dL Est GFR (CKD-EPI)AfAm 63 (>60 ml/min/1.73 sqM) Est GFR (CKD-EPI)NonAf 54 (>60 ml/min/1.73 sqM) Glucose 88 (74-99) mg/dL POC Glucose (mg/dL) (75-99) mg/dL POC Glu Hand Bander ID Plasma Lactic Acid Silvestre (0.7-2.0) mmol/L Calcium 8.6 (8.4-10.2) mg/dL Magnesium (1.6-2.3) mg/dL Total Bilirubin (0.2-1.3) mg/dL AST (17-59) U/L ALT (4-49) U/L Alkaline Phosphatase (38-126) U/L Troponin I (0.000-0.034) ng/mL NT-Pro-B Natriuret Pep pg/mL Total Protein (6.3-8.2) g/dL Albumin (3.5-5.0) g/dL Disposition Clinical Impression: Exertional dyspnea, Congestive heart failure, Atherosclerotic ulcer of aorta Disposition: ADMITTED IP TO THIS HOSP Condition: Stable Is patient prescribed a controlled substance at d/c from ED?: No Decision to Admit Reason: Admit from EC Decision Date: 09/29/19 Decision Time: 12:07
[2019-09-29 10:10] LABS: Anisocytosis Slight; Basophils % (A) 0 %; Eosinophils # (A) 0.2 k/uL (0-0.7); Eosinophils % (A) 2 %; HGB 8.3 gm/dL (13.0-17.5); Hypochromasia Marked; Lymphocytes # (A) 0.9 k/uL (1.0-4.8); Lymphocytes % (A) 13 %; MCHC 29.4 g/dL (31.0-37.0); MCV 95.3 fL (80.0-100.0); Macrocytosis Slight; Mean Platelet Volume 8.7; Monocytes # (A) 0.4 k/uL (0-1.0); Monocytes % (A) 5 %; Neutrophils # (A) 5.5 k/uL (1.3-7.7); Neutrophils % (A) 78 %; Platelet Count 222 k/uL (150-450); RBC 2.94 m/uL (4.30-5.90); RDW 18.8 % (11.5-15.5); WBC 7.1 k/uL (3.8-10.6)
[2019-09-29 10:19] LABS: Calcium 8.9 mg/dL (8.4-10.2); Magnesium 2.3 mg/dL (1.6-2.3); Potassium 3.6 mmol/L (3.5-5.1); Total Bilirubin 0.4 mg/dL (0.2-1.3); Total Protein 6.4 g/dL (6.3-8.2)
[2019-09-29 10:24] LABS: Prothrombin Time 10.7 sec (9.0-12.0)
--- NOTE | 2019-09-29 10:24 | XR ---
EXAMINATION TYPE: XR chest 2V DATE OF EXAM: 09/29/2019 COMPARISON: Prior chest x-ray 09/22/2019, prior chest CT 06/13/2016 HISTORY: Difficulty breathing, shortness of breath TECHNIQUE: Frontal and lateral views of the chest are obtained. FINDINGS: Patient is post median sternotomy and rotated. Postop changes are noted to the left should er. Arthropathy noted in the right shoulder. Aorta is dense and tortuous, possibly ectatic. Bandlike area of increased attenuation at the right costophrenic angle likely reflects scarring. No evident pn eumothorax or pleural effusion. Patient shows cardiac valve replacement. Heart is enlarged as on prio r. There are dense coronary artery calcifications. IMPRESSION: No acute cardiopulmonary process. Postop changes. Cardiomegaly. 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
[2019-09-29 10:34] LABS: D-Dimer 2.8 mg/L FEU (<0.60)
--- NOTE | 2019-09-29 11:33 | CT ---
EXAMINATION TYPE: CT chest angio for PE DATE OF EXAM: 09/29/2019 COMPARISON: HISTORY: SOB CT DLP: 429.8 mGycm Automated exposure control for dose reduction was used. CONTRAST: CT Chest for pulmonary embolism performed with with IV Contrast, patient injected with 81 mL of Isovu e 370. FINDINGS: LUNGS: The lungs are remarkable for soft tissue nodule on axial image #64 measuring 9 mm in the right upper lobe. Emphysematous changes are present within the lungs. Bandlike area of increased attenuat ion is present in the right lower lobe and right middle lobe which may represent atelectatic change o r scarring. There is no pleural effusion or pneumothorax seen. The tracheobronchial tree is patent. MEDIASTINUM: There is satisfactory enhancement of the pulmonary artery and its branches, there is no CT evidence for pulmonary embolism. There are no greater than 1 cm hilar or mediastinal lymph nodes. Pulmonary artery is dilated 3.6 cm No pericardial effusion is seen. The heart is enlarged. There is extensive coronary artery calcification, suspect there is aortic valve replacement change, correla te for appropriate history. AORTA: The aorta shows atheromatous change. On axial image #[id number] there is some vague enhancement wh ich extends into the region of the aortic wall suggesting an aortic ulcer, sagittal image #27 and 28, similar findings questioned in the abdominal aorta, there may be limited dissection, axial image #13 8 through 143. Proximal descending aorta is 3.8 cm as is the proximal ascending aorta. OTHER: Extensive arthropathy present in the right shoulder. Multilevel thoracic spondylosis is prese nt. Patient is post median sternotomy, bony fusion along sternotomy is not identified. Right hemidiap hragm is elevated. 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 Hypodensity in the dependent po rtion of the gallbladder consistent with stones. IMPRESSION: No evident pulmonary embolism. Findings may represent a small aortic ulcer in the descending aorta, f indings and abdominal aorta as described. Descending aorta is ectatic at 3.8 cm. There is extensive a therosclerotic change present. Indeterminate pulmonary nodule. Correlate for pulmonary artery hyperte nsion. Nonunion of patient's sternotomy. Cholelithiasis and additional findings above.
[2019-09-29] MEDS ORDERED: NALOXONE 0.4 MG/ML 1 ML VIAL IV PRN (12:09)
[2019-09-29] MEDS: SODIUM CHLORIDE 0.9% 1,000 ML IV SCH ×2 (19:00→20:32)
[2019-09-29 19:07] LABS: Glucose,Whole Blood 176 mg/dL (75-99)
[2019-09-29] MEDS ORDERED: NITROGLYCERIN SL TABS 0.4 MG TAB SUBLINGUAL PRN (19:52)
[2019-09-29] MEDS: ATORVASTATIN 40 MG TAB PO SCH (20:32)
[2019-09-29] MEDS: METOPROLOL TARTRATE 25 MG TAB PO SCH (20:33)
[2019-09-29] MEDS: PANTOPRAZOLE 40 MG TABLET PO SCH (20:34)
[2019-09-29] MEDS: ALPRAZolam 0.25 MG TAB PO PRN ×2 (20:34→20:40)
[2019-09-29] MEDS: ASPIRIN 81 MG PO SCH (20:35)
[2019-09-30 06:14] LABS: Anisocytosis Slight; Basophils % (A) 0 %; Eosinophils # (A) 0.3 k/uL (0-0.7); Eosinophils % (A) 4 %; HCT 24.9 % (39.0-53.0); HGB 7.6 gm/dL (13.0-17.5); Hypochromasia Marked; Lymphocytes # (A) 1.1 k/uL (1.0-4.8); Lymphocytes % (A) 16 %; MCH 29.1 pg (25.0-35.0); MCHC 30.5 g/dL (31.0-37.0); MCV 95.6 fL (80.0-100.0); Macrocytosis Slight; Mean Platelet Volume 8.3; Monocytes # (A) 0.5 k/uL (0-1.0); Monocytes % (A) 6 %; Neutrophils # (A) 4.9 k/uL (1.3-7.7); Neutrophils % (A) 71 %; Platelet Count 203 k/uL (150-450); RBC 2.61 m/uL (4.30-5.90); RDW 18.4 % (11.5-15.5)
[2019-09-30 06:33] LABS: Calcium 8.6 mg/dL (8.4-10.2); Potassium 3.7 mmol/L (3.5-5.1)
[2019-09-30] MEDS: IPRATROPIUM-ALBUTEROL 3 ML NEB INHALATION PRN ×2 (07:57→15:36)
[2019-09-30] MEDS: METOPROLOL TARTRATE 25 MG TAB PO SCH ×2 (08:17→21:29)
[2019-09-30] MEDS: PANTOPRAZOLE 40 MG TABLET PO SCH ×2 (08:18→21:29)
[2019-09-30] MEDS: FUROSEMIDE 40 MG TAB PO SCH ×2 (08:18→17:36)
--- NOTE | 2019-09-30 09:27 | P.GSCN ---
History of Present Illness History of present illness: HISTORY OF PRESENTING ILLNESS This is a pleasant 89-year-old male past medical history significant for coronary artery disease status post bypass grafting, valvular heart disease status post bioprosthetic aortic valve replacement, hypertension, dyslipidemia and chronic systolic heart failure. He denies prior history of peripheral vascular disease. We have been asked to see in consultation for aortic ulceration noted on CT of the chest. He was admitted last week secondary to dyspnea and found to have anemia prompting a GI evaluation. EGD performed revealed no areas of active bleeding, angiectasia noted and treated with gold probe coagulation therapy. He was discharged home Thursday feeling well. He states he had been up and walking around with no exertional shortness of breath at the time of discharge. However, slowly over the course of Thursday and Thursday he started feeling increasingly short of breath, lightheaded and weak. He states he was unable to even brush his hair without feeling exhausted. He had intermittent episodes where he felt extremely weak and lightheaded however denies any actual syncope or loss of consciousness. He denies ever having had any symptoms of chest discomfort, back pain or palpitations. CT angio was obtained secondary to abnormal d-dimer revealing atheromatous changes of the aorta, vague enhancement into the aortic wall suggesting an aortic ulceration with a proximal descending aorta ectatic at 3.8 cm. Laboratory data reviewed, hemoglobin on admission 8.3 repeat today 7.6, platelets 203, d-dimer 2.8, creatinine 1.19 with a GFR of 54. Current daily medications include aspirin, atorvastatin, Flomax, Protonix, Lopressor, losartan, Lasix and Xanax. REVIEW OF SYSTEMS At the time of my exam: CONSTITUTIONAL: Denies fever or chills. CARDIOVASCULAR: Complains of exertional dyspnea. Denies chest pain, orthopnea, PND or palpitations. RESPIRATORY: Denies cough. GASTROINTESTINAL: Denies abdominal pain, diarrhea, constipation, nausea or vomiting. MUSCULOSKELETAL: Denies myalgias. NEUROLOGIC: Denies numbness, tingling or weakness. ENDOCRINE: Denies fatigue, weight change, polydipsia or polyurina. GENITOURINARY: Denies burning, hematuria or urgency with micturation. HEMATOLOGIC: Denies history of anemia or bleeding. PHYSICAL EXAMINATION Blood pressure 109/71 heart rate 76 afebrile and maintaining oxygen saturation on room air. CONSTITUTIONAL: No apparent distress. HEENT: Head is normocephalic. Pupils are equal, round. Sclerae anicteric. Mucous membranes of the mouth are moist. No JVD. No carotid bruit. CHEST EXAMINATION: Lungs are clear to auscultation. No chest wall tenderness is noted on palpation or with deep breathing. Diminished bilaterally. HEART EXAMINATION: Regular rate and rhythm. S1, S2 heard. Systolic ejection murmur at the base, no gallops or rub. ABDOMEN: Soft, nontender. Positive bowel sounds. EXTREMITIES: 2+ peripheral pulses, no lower extremity edema and no calf tenderness. NEUROLOGIC EXAMINATION: Patient is awake, alert and oriented x3. ASSESSMENT Aortic ulceration Exertional dyspnea Anemia Coronary artery disease status post bypass grafting Valvular heart disease status post bioprosthetic aortic valve replacement Hypertension Dyslipidemia PLAN CT films reviewed by Dr. Mcdonough. Clinically he is hemodynamically stable with no symptoms of chest or back pain suggestive of dissection. 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 Continue current medical regimen with importance on blood pressure management along with statin therapy. No plans for surgical intervention from a vascular standpoint at this time. Thank you kindly for this consultation. Nurse Practitioner note has been reviewed, I agree with a documented findings and plan of care. Patient was seen and examined. Past Medical History Past Medical History: Atrial Fibrillation, Heart Failure, GERD/Reflux, Hyperlipidemia, Hypertension Additional Past Medical History / Comment(s): edema, constipation Last Myocardial Infarction Date:: 2015 History of Any Multi-Drug Resistant Organisms: None Reported Past Surgical History: Appendectomy, Coronary Bypass/CABG, Hernia Repair, Orthopedic Surgery Additional Past Surgical History / Comment(s): shoulder, ankle Past Anesthesia/Blood Transfusion Reactions: No Reported Reaction Past Psychological History: No Psychological Hx Reported Smoking Status: Former smoker Past Alcohol Use History: None Reported Past Drug Use History: None Reported - Past Family History Father History Unknown: Yes Mother History Unknown: Yes Additional Family Medical History / Comment(s): Pt states "both my parents were pretty healthy." Medications and Allergies Home Medications Medication Instructions Recorded Confirmed Type Losartan [Cozaar] 12.5 mg PO DAILY@1200 #30 tab 02/11/16 09/29/19 Rx Aspirin 81 mg PO HS@199903/02/16 09/29/19 History Atorvastatin [Lipitor] 40 mg PO HS@199903/02/16 09/29/19 History Ipratropium-Albuterol Nebulize 3 ml INHALATION RT-QID PRN 03/02/16 09/29/19 History [Duoneb 0.5 mg-3 mg/3 ml Soln] Potassium Chloride ER [K-Dur 10] 10 meq PO AC-SUPPER@1700 03/02/16 09/29/19 History Nitroglycerin Sl Tabs [Nitrostat] 0.4 mg SUBLINGUAL Q5M PRN #0 tab 03/07/16 09/29/19 Rx Tamsulosin HCl [Flomax] 0.4 mg PO DAILY@1200 04/09/16 09/29/19 History ALPRAZolam [Xanax] 0.25 mg PO HS PRN 09/24/18 09/29/19 History Furosemide [Lasix] 40 mg PO BID@0900,1700 09/22/19 09/29/19 History Metoprolol Tartrate [Lopressor] 25 mg PO BID@0900,199909/22/19 09/29/19 History Pantoprazole Sodium [Protonix] 40 mg PO BID@0900,199909/29/19 09/29/19 History Allergies Allergy/AdvReac Type Severity Reaction Status Date / Time Penicillins Allergy Rash/Hives Verified 09/29/19 12:16 cyclobenzaprine HCl AdvReac Confusion Verified 09/29/19 12:16 [From Flexeril] Surgical - Exam Vital Signs Temp Pulse Resp BP Pulse Ox 98.0 F 82 18 104/57 99 09/29/19 09:31 09/29/19 09:31 09/29/19 09:31 09/29/19 09:31 09/29/19 09:31 Results - Labs 09/30/19 05:36 09/30/19 05:36 Abnormal Lab Results - Last 24 Hours (Table) 09/29/19 09/29/19 09/29/19 Range/Units 09:57 09:57 09:57 RBC 2.94 L (4.30-5.90) m/uL Hgb 8.3 L (13.0-17.5) gm/dL Hct 28.0 L (39.0-53.0) % MCHC 29.4 L (31.0-37.0) g/dL RDW 18.8 H (11.5-15.5) % Lymphocytes # 0.9 L (1.0-4.8) k/uL D-Dimer 2.80 H (<0.60) mg/L FEU BUN 26 H (9-20) mg/dL Creatinine 1.35 H (0.66-1.25) mg/dL Glucose 113 H (74-99) mg/dL POC Glucose (mg/dL) (75-99) mg/dL Troponin I (0.000-0.034) ng/mL 09/29/19 09/29/19 09/29/19 Range/Units 09:57 15:14 19:05 RBC (4.30-5.90) m/uL Hgb (13.0-17.5) gm/dL Hct (39.0-53.0) % MCHC (31.0-37.0) g/dL RDW (11.5-15.5) % Lymphocytes # (1.0-4.8) k/uL D-Dimer (<0.60) mg/L FEU BUN (9-20) mg/dL Creatinine (0.66-1.25) mg/dL Glucose (74-99) mg/dL POC Glucose (mg/dL) 176 H (75-99) mg/dL Troponin I 0.068 H* 0.067 H* (0.000-0.034) ng/mL 09/29/19 09/30/19 09/30/19 Range/Units 22:29 05:36 05:36 RBC 2.61 L (4.30-5.90) m/uL Hgb 7.6 L (13.0-17.5) gm/dL Hct 24.9 L (39.0-53.0) % MCHC 30.5 L (31.0-37.0) g/dL RDW 18.4 H (11.5-15.5) % Lymphocytes # (1.0-4.8) k/uL D-Dimer (<0.60) mg/L FEU BUN 22 H (9-20) mg/dL Creatinine (0.66-1.25) mg/dL Glucose (74-99) mg/dL POC Glucose (mg/dL) (75-99) mg/dL Troponin I 0.088 H* (0.000-0.034) ng/mL Diabetes panel 09/29/19 09/30/19 Range/Units 09:57 05:36 Sodium 141 138 (137-145) mmol/L Potassium 3.6 3.7 (3.5-5.1) mmol/L Chloride 105 106 (98-107) mmol/L Carbon Dioxide 25 29 (22-30) mmol/L BUN 26 H 22 H (9-20) mg/dL Creatinine 1.35 H 1.19 (0.66-1.25) mg/dL Glucose 113 H 88 (74-99) mg/dL Calcium 8.9 8.6 (8.4-10.2) mg/dL AST 32 (17-59) U/L ALT 21 (4-49) U/L Alkaline Phosphatase 85 (38-126) U/L Total Protein 6.4 (6.3-8.2) g/dL Albumin 4.0 (3.5-5.0) g/dL Calcium panel 09/29/19 09/30/19 Range/Units 09:57 05:36 Calcium 8.9 8.6 (8.4-10.2) mg/dL Albumin 4.0 (3.5-5.0) g/dL Pituitary panel 09/29/19 09/30/19 Range/Units 09:57 05:36 Sodium 141 138 (137-145) mmol/L Potassium 3.6 3.7 (3.5-5.1) mmol/L Chloride 105 106 (98-107) mmol/L Carbon Dioxide 25 29 (22-30) mmol/L BUN 26 H 22 H (9-20) mg/dL Creatinine 1.35 H 1.19 (0.66-1.25) mg/dL Glucose 113 H 88 (74-99) mg/dL Calcium 8.9 8.6 (8.4-10.2) mg/dL Adrenal panel 09/29/19 09/30/19 Range/Units 09:57 05:36 Sodium 141 138 (137-145) mmol/L Potassium 3.6 3.7 (3.5-5.1) mmol/L Chloride 105 106 (98-107) mmol/L Carbon Dioxide 25 29 (22-30) mmol/L BUN 26 H 22 H (9-20) mg/dL Creatinine 1.35 H 1.19 (0.66-1.25) mg/dL Glucose 113 H 88 (74-99) mg/dL Calcium 8.9 8.6 (8.4-10.2) mg/dL Total Bilirubin 0.4 (0.2-1.3) mg/dL AST 32 (17-59) U/L ALT 21 (4-49) U/L Alkaline Phosphatase 85 (38-126) U/L Total Protein 6.4 (6.3-8.2) g/dL Albumin 4.0 (3.5-5.0) g/dL
[2019-09-30] MEDS: LOSARTAN 25 MG TAB PO SCH (12:11)
[2019-09-30] MEDS: TAMSULOSIN 0.4 MG CAP.ER.24H PO SCH (12:11)
--- NOTE | 2019-09-30 13:28 | P.HPIM ---
History of Present Illness H&P Date: 09/30/19 Chief Complaint: Worsening shortness of breath This is a pleasant 89-year-old gentleman with history of CAD, CABG, paroxysmal atrial fibrillation, aortic valve replacement with tissue valve, CHF, gastroesophageal reflux disease, hyperlipidemia, hypertension, former nicotine d ependence presented to the ER with complaints of shortness of breath, worsened by exertion. Patient was recently discharged this past Thursday following anemia workup. EGD reported 2 nonbleeding angiectasia, gastric and duodenal, treated with argon plasma coagulation therapy. No other sources of bleeding, old blood or active bleeding noted. Small hiatal hernia. Reports feeling well until about mid week, developed exertional shortness of breath, lightheadedness, dizziness. Difficulty performing ADLs including brushing his hair. Denies chest pain, palpitations or shortness of breath. Denies back pain. Denies abdominal pain. Denies syncope. Hemoglobin on admission 8.3, increased by 1gm upon discharge. Platelets 203. Elevated d-dimer, Pulmonary embolism ruled out in the ER via CTA. Incidental finding of suggested small aortic ulcer in the descending aorta , similar findings in the abdominal aorta ,proximal descending aorta ectatic at 3.8 cm. Indeterminate pulmonary nodule, right upper lobe 9 mm. creatinine 1.19. Troponin 0.068, 0.067, 0.088. EKG reported sinus rhythm with first-degree AV block, anterior infarct, age undetermined, occasional PVCs. Chest x-ray reporting no acute cardiopulmonary process, tortuous density aorta, aortic ectasia. Review of Systems REVIEW OF SYSTEMS: CONSTITUTIONAL: No fever, no malaise, no fatigue. HEENT: No recent visual problems or hearing problems. Denied any sore throat. CARDIOVASCULAR: No chest pain, orthopnea, PND, no palpitations, no syncope. PULMONARY: No hemoptysis. GASTROINTESTINAL: No diarrhea, no nausea, no vomiting, no abdominal pain. NEUROLOGICAL: No headaches, no weakness, no numbness. HEMATOLOGICAL: Denies any bleeding or petechiae. GENITOURINARY: Denies any burning micturition, frequency, or urgency. MUSCULOSKELETAL/RHEUMATOLOGICAL: Denies any joint pain, swelling, or any muscle pain. ENDOCRINE: Denies any polyuria or polydipsia. The rest of the 14-point review of systems is negative. ROS Statement: Those systems with pertinent positive or pertinent negative responses have been documented in the HPI. ROS Other: All systems not noted in ROS Statement are negative. Past Medical History Past Medical History: Atrial Fibrillation, Heart Failure, GERD/Reflux, Hy perlipidemia, Hypertension Additional Past Medical History / Comment(s): edema, constipation Last Myocardial Infarction Date:: 2015 History of Any Multi-Drug Resistant Organisms: None Reported Past Surgical History: Appendectomy, Coronary Bypass/CABG, Hernia Repair, Orthopedic Surgery Additional Past Surgical History / Comment(s): shoulder, ankle Past Anesthesia/Blood Transfusion Reactions: No Reported Reaction Past Psychological History: No Psychological Hx Reported Smoking Status: Former smoker Past Alcohol Use History: None Reported Past Drug Use History: None Reported - Past Family History Father History Unknown: Yes Mother History Unknown: Yes Additional Family Medical History / Comment(s): Pt states "both my parents were pretty healthy." Medications and Allergies Home Medications Medication Instructions Recorded Confirmed Type Losartan [Cozaar] 12.5 mg PO DAILY@1200 #30 tab 02/11/16 09/29/19 Rx Aspirin 81 mg PO HS@199903/02/16 09/29/19 History Atorvastatin [Lipitor] 40 mg PO HS@199903/02/16 09/29/19 History Ipratropium-Albuterol Nebulize 3 ml INHALATION RT-QID PRN 03/02/16 09/29/19 History [Duoneb 0.5 mg-3 mg/3 ml Soln] Potassium Chloride ER [K-Dur 10] 10 meq PO AC-SUPPER@1700 03/02/16 09/29/19 History Nitroglycerin Sl Tabs [Nitrostat] 0.4 mg SUBLINGUAL Q5M PRN #0 tab 03/07/16 09/29/19 Rx Tamsulosin HCl [Flomax] 0.4 mg PO DAILY@1200 04/09/16 09/29/19 History ALPRAZolam [Xanax] 0.25 mg PO HS PRN 09/24/18 09/29/19 History Furosemide [Lasix] 40 mg PO BID@0900,17009/22/19 09/29/19 History Metoprolol Tartrate [Lopressor] 25 mg PO BID@0900,199909/22/19 09/29/19 History Pantoprazole Sodium [Protonix] 40 mg PO BID@0900,199909/29/1909/28/20 History Allergies Allergy/AdvReac Type Severity Reaction Status Date / Time Penicillins Allergy Rash/Hives Verified 09/29/19 12:16 cyclobenzaprine HCl AdvReac Confusion Verified 09/29/19 12:16 [From Flexeril] Physical Exam Vitals: Vital Signs Temp Pulse Pulse Resp BP BP Pulse Ox 09/30/19 08:07 76 09/30/19 08:00 98 F 75 19 109/71 99 09/30/19 07:59 68 09/30/19 04:00 97.9 F 16 109/71 92 L 09/30/19 00:00 98.5 F 68 12 98/59 98 09/29/19 20:00 98.1 F 84 18 115/55 96 09/29/19 18:00 78 18 127/69 97 09/29/19 17:00 97.9 F 75 18 110/60 96 09/29/19 16:00 75 18 112/60 96 09/29/19 15:00 77 18 106/57 97 09/29/19 14:00 79 19 122/67 96 09/29/19 13:00 78 19 123/67 97 09/29/19 12:00 79 20 116/71 95 09/29/19 11:00 75 20 110/71 95 09/29/19 10:00 75 20 95 09/29/19 09:45 97 Intake and Output 09/29/19 09/30/19 09/30/19 22:59 06:59 14:59 Intake Total 75 600 Output Total 180 200 Balance -105 400 Intake: IV 75 600 Sodium Chloride 0.9% 1, 75 600 000 ml @ 75 mls/hr IV . [id number] [facility] Rx#:[id number] Output: Urine 180 200 Other: Weight 65.771 kg 69.4 kg GENERAL: Sitting up in chair alert and oriented x3, no acute distress. HEENT: Pupils are round and equally reacting to light. EOMI. No scleral icterus. No conjunctival pallor. Normocephalic, atraumatic. No pharyngeal erythema. No thyromegaly. No JVD CARDIOVASCULAR: S1 and S2 present. systolic murmur, no rubs, or gallops. PULMONARY:decreased air entry with bilateral bases diminished ABDOMEN: Soft, nontender, nondistended, normoactive bowel sounds. No palpable organomegaly. MUSCULOSKELETAL: No joint swelling or deformity. EXTREMITIES: No cyanosis, clubbing,or lower extremity edema. NEUROLOGICAL: Gross neurological examination did not reveal any focal deficits. SKIN: No rashes. Results CBC & Chem 7: 09/30/19 05:36 09/30/19 05:36 Labs: Abnormal Lab Results - Last 24 Hours (Table) 09/29/19 09/29/19 09/29/19 Range/Units 09:57 09:57 09:57 RBC 2.94 L (4.30-5.90) m/uL Hgb 8.3 L (13.0-17.5) gm/dL Hct 28.0 L (39.0-53.0) % MCHC 29.4 L (31.0-37.0) g/dL RDW 18.8 H (11.5-15.5) % Lymphocytes # 0.9 L (1.0-4.8) k/uL D-Dimer 2.80 H (<0.60) mg/L FEU BUN 26 H (9-20) mg/dL Creatinine 1.35 H (0.66-1.25) mg/dL Glucose 113 H (74-99) mg/dL POC Glucose (mg/dL) (75-99) mg/dL Troponin I (0.000-0.034) ng/mL 09/29/19 09/29/19 09/29/19 Range/Units 09:57 15:14 19:05 RBC (4.30-5.90) m/uL Hgb (13.0-17.5) gm/dL Hct (39.0-53.0) % MCHC (31.0-37.0) g/dL RDW (11.5-15.5) % Lymphocytes # (1.0-4.8) k/uL D-Dimer (<0.60) mg/L FEU BUN (9-20) mg/dL Creatinine (0.66-1.25) mg/dL Glucose (74-99) mg/dL POC Glucose (mg/dL) 176 H (75-99) mg/dL Troponin I 0.068 H* 0.067 H* (0.000-0.034) ng/mL 09/29/19 09/30/1909/29/20 Range/Units 22:29 05:36 05:36 RBC 2.61 L (4.30-5.90) m/uL Hgb 7.6 L (13.0-17.5) gm/dL Hct 24.9 L (39.0-53.0) % MCHC 30.5 L (31.0-37.0) g/dL RDW 18.4 H (11.5-15.5) % Lymphocytes # (1.0-4.8) k/uL D-Dimer (<0.60) mg/L FEU BUN 22 H (9-20) mg/dL Creatinine (0.66-1.25) mg/dL Glucose (74-99) mg/dL POC Glucose (mg/dL) (75-99) mg/dL Troponin I 0.088 H* (0.000-0.034) ng/mL Thrombosis Risk Factor Assmnt - Choose All That Apply Any of the Below Risk Factors Present?: No Other Risk Factors: Yes Each Risk Factor Represents 3 Points: Age 75 years or older Other congenital or acquired thrombophilia - If yes, enter type in comment: No Thrombosis Risk Factor Assessment Total Risk Factor Score: 3 Thrombosis Risk Factor Assessment Level: Moderate Risk Assessment and Plan Assessment: -Shortness of breath secondary to anemia. Status post recent EGD reporting :2 nonbleeding angiectasia, gastric and duodenal, treated with argon plasma coagulation therapy. No other sources of bleeding, old blood or active bleeding noted. Small hiatal hernia. -Descending aorta ,small aortic ulcer, similar findings in the abdominal aorta ,proximal descending aorta ectatic at 3.8 cm. -Acute on chronic anemia, baseline around 12-13. 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 -benign prostatic atrophy Plan: Continue on current medication regime ,monitoring and symptomatic treatment. PPI, Gentle IV fluid hydration. Vascular consult in place, recommendations pending. Evaluated by cardiology, last visit. Close monitoring of renal function, hemoglobin and electrolytes with repeat labs ordered for a.m. The impression and plan of care has been dictated as directed. : I performed a history and examination of this patient, discussed the same with the dictator. I agree with the dictator's note ,documented as a scribe. Any additional findings or plans will be noted.
[2019-09-30] MEDS: POTASSIUM CHLORIDE ER 10 MEQ TAB.ER.PRT PO SCH (17:36)
[2019-09-30] MEDS: SODIUM CHLORIDE 0.9% 1,000 ML IV SCH ×2 (17:36→23:05)
[2019-09-30] MEDS: ASPIRIN 81 MG PO SCH (21:29)
[2019-09-30] MEDS: ATORVASTATIN 40 MG TAB PO SCH (21:29)
[2019-09-30] MEDS: ALPRAZolam 0.25 MG TAB PO PRN (21:35)
[2019-10-01] MEDS: IPRATROPIUM-ALBUTEROL 3 ML NEB INHALATION PRN ×2 (08:09→20:24)
--- NOTE | 2019-10-01 10:01 | P.PN ---
Subjective Progress Note Date: 10/01/19 Patient seen and examined. No complaints overall. Still feels weak and tired. Denies any chest pains. No acute distress resting comfortably. Heart regular. Lungs clear. Abdomen soft, nontender nondistended. Abnormal CT of the chest, in light of renal dysfunction still no desire to arellano to a CT angiogram given relatively asymptomatic clinically. No evidence of dissection clinically or ulceration with distal embolic phenomenon. No plans intervention at this time. Follow-up in the office as outpatient Objective - Vital Signs Vital signs: Vital Signs Temp 97.7 F 10/01/19 04:00 Pulse 84 10/01/19 08:22 Resp 18 10/01/19 04:00 BP 87/50 10/01/19 04:00 Pulse Ox 94 L 10/01/19 04:00 Intake & Output 09/30/19 10/01/19 10/01/19 18:59 06:59 18:59 Intake Total 1005 90 Output Total 1050 100 Balance -45 -100 90 Weight 67.5 kg Intake: IV 525 Sodium Chloride 0.9% 1, 525 000 ml @ 75 mls/hr IV . [id number] [facility] Rx#:[id number] Oral 480 90 Output: Urine 1050 100 Other: # Voids 1 1 - Labs CBC & Chem 7: 09/30/19 05:36 09/30/19 05:36
[2019-10-01] MEDS: FUROSEMIDE 40 MG TAB PO SCH ×2 (10:04→17:42)
[2019-10-01] MEDS: PANTOPRAZOLE 40 MG TABLET PO SCH ×2 (10:04→21:07)
[2019-10-01] MEDS: METOPROLOL TARTRATE 25 MG TAB PO SCH ×2 (10:05→21:07)
[2019-10-01 10:09] LABS: Anisocytosis Slight; Basophils % (A) 0 %; Eosinophils # (A) 0.1 k/uL (0-0.7); Eosinophils % (A) 2 %; HCT 25.6 % (39.0-53.0); HGB 7.5 gm/dL (13.0-17.5); Hypochromasia Marked; Lymphocytes % (A) 15 %; MCH 28.5 pg (25.0-35.0); MCHC 29.5 g/dL (31.0-37.0); MCV 96.5 fL (80.0-100.0); Macrocytosis Slight; Mean Platelet Volume 8.9; Monocytes # (A) 0.3 k/uL (0-1.0); Monocytes % (A) 5 %; Neutrophils % (A) 77 %; Platelet Count 186 k/uL (150-450); RBC 2.65 m/uL (4.30-5.90); RDW 17.8 % (11.5-15.5); WBC 6.5 k/uL (3.8-10.6)
[2019-10-01 10:18] LABS: Calcium 8.5 mg/dL (8.4-10.2); Potassium 3.4 mmol/L (3.5-5.1)
[2019-10-01] MEDS: LOSARTAN 25 MG TAB PO SCH (12:21)
[2019-10-01] MEDS: TAMSULOSIN 0.4 MG CAP.ER.24H PO SCH (12:21)
--- NOTE | 2019-10-01 13:20 | P.PN ---
Subjective This is a pleasant 89-year-old gentleman with history of CAD, CABG, paroxysmal atrial fibrillation, aortic valve replacement with tissue valve, CHF, gastroesophageal reflux disease, hyperlipidemia, hypertension, former nicotine dependence presented to the ER with complaints of shortness of breath, worsened by exertion. Patient was recently discharged this past Thursday following anemia workup. EGD reported 2 nonbleeding angiectasia, gastric and duodenal, treated with argon plasma coagulation therapy. No other sources of bleeding, old blood or active bleeding noted. Small hiatal hernia. Reports feeling well until about mid week, developed exertional shortness of breath, lightheadedness, dizziness. Difficulty performing ADLs including brushing his hair. Denies chest pain, palpitations or shortness of breath. Denies back pain. Denies abdominal pain. Denies syncope. Hemoglobin on admission 8.3, increased by 1gm upon discharge. Platelets 203. Elevated d-dimer, Pulmonary embolism ruled out in the ER via CTA. Incidental finding of suggested small aortic ulcer in the descending aorta , similar findings in the abdominal aorta ,proximal descending aorta ectatic at 3.8 cm. Indeterminate pulmonary nodule, right upper lobe 9 mm. creatinine 1.19. Troponin 0.068, 0.067, 0.088. EKG reported sinus rhythm with first-degree AV block, anterior infarct, age undetermined, occasional PVCs. Chest x-ray reporting no acute cardiopulmonary process, tortuous density aorta, aortic ectasia. On-call hospitalist, Dr. Price over the weekend, Dr. Price team will resume the care of the patient on Monday 10/0210/01/2019 Patient is a pleasant 89 years old male with history of atrial fibrillation, heart failure, hypertension and hyperlipidemia. He was at home with however patient denies to me he has an hospice (mentioned in ED note). He was recently discharged on 09/25 for CHF and blood loss anemia secondary to gastric and duodenal angiectasia. He was treated with gold probe coagulation therapy. Upon discharge he developed dyspnea with weakness and lightheadedness over 2 days. Patient had elevated d-dimer and CT of the chest performed showing no pulmonary embolism however there is a small aortic ulcer in the descending aorta and abdominal aorta. Vascular surgery was consulted and recommended no plans for intervention at this time and follow-up in the office as an outpatient CBC and BMP were unremarkable except for anemia of 7.6, and 7.5 and low potassium 3.4 Troponin is chronically elevated and on admission is 0.08, close to last time of 0.06 Chronically elevated troponin. Patient currently on a statin, metoprolol, lisinopril, Protonix twice a day and normal/75 mL/h lower to 40 mL per hour. Physical short of breath with little cough with phlegm, no chest pain. Since his feels generally weak with ask for physical therapy evaluation, also check TSH, B12 and folic and hemoglobin A1c REVIEW OF SYSTEMS: CONSTITUTIONAL: No fever, no malaise, no fatigue. HEENT: No recent visual problems or hearing problems. Denied any sore throat. CARDIOVASCULAR: No chest pain, orthopnea, PND, no palpitations, no syncope. PULMONARY: No hemoptysis. GASTROINTESTINAL: No diarrhea, no nausea, no vomiting, no abdominal pain. NEUROLOGICAL: No headaches, no weakness, no numbness. HEMATOLOGICAL: Denies any bleeding or petechiae. GENITOURINARY: Denies any burning micturition, frequency, or urgency. MUSCULOSKELETAL/RHEUMATOLOGICAL: Denies any joint pain, swelling, or any muscle pain. ENDOCRINE: Denies any polyuria or polydipsia. Active Medications Generic Name Dose Route Start Last Admin Trade Name Freq PRN Reason Stop Dose Admin Albuterol/Ipratropium 3 ml 09/29/19 19:52 10/01/19 08:09 Duoneb 0.5 Mg-3 Mg/3 Ml Soln INHALATION 3 ml RT-QID PRN Administration Shortness Of Breath Alprazolam 0.25 mg 09/29/19 19:52 09/30/19 21:35 Xanax PO 0.25 mg HS PRN Administration Insomnia Aspirin 81 mg 09/29/19 20:00 09/30/19 21:29 Aspirin PO 81 mg HS@2000 ANIL Administration Atorvastatin Calcium 40 mg 09/29/19 20:00 09/30/19 21:29 Lipitor PO 40 mg HS@2000 ANIL Administration Furosemide 40 mg 09/30/19 09:00 10/01/19 10:04 Lasix PO 40 mg BID@0900,1700 ANIL Administration Sodium Chloride 1,000 mls @ 75 mls/hr 09/29/19 12:15 09/30/19 23:05 Saline 0.9% IV 75 mls/hr .[id number] ANIL Administration Losartan Potassium 12.5 mg 09/30/19 12:00 10/01/19 12:21 Cozaar PO 12.5 mg DAILY@1200 [facility] Administration Metoprolol Tartrate 25 mg 09/29/19 20:00 10/01/19 10:05 Lopressor PO 25 mg BID@899,1999 [facility] Administration Naloxone HCl 0.2 mg 09/29/19 12:09 Narcan IV Q2M PRN Opioid Reversal Nitroglycerin 0.4 mg 09/29/19 19:52 Nitrostat SUBLINGUAL Q5M PRN Chest Pain Pantoprazole Sodium 40 mg 09/29/19 20:00 10/01/19 10:04 Protonix PO 40 mg BID@899,1999 [facility] Administration Potassium Chloride 10 meq 09/30/19 17:00 09/30/19 17:36 K-Dur 10 PO 10 meq AC-SUPPER@1700 [facility] Administration Tamsulosin HCl 0.4 mg 09/30/19 12:00 10/01/19 12:21 Flomax PO 0.4 mg DAILY@1200 [facility] Administration Objective - Vital Signs Vital signs: Vital Signs Temp 97.6 F 10/01/19 10:00 Pulse 99 10/01/19 10:00 Resp 18 10/01/19 10:00 BP 104/54 10/01/19 10:00 Pulse Ox 93 L 10/01/19 10:00 Intake & Output 09/30/19 10/01/19 10/01/19 18:59 06:59 18:59 Intake Total 1005 330 Output Total 1050 100 Balance -45 -100 330 Weight 67.5 kg Intake: IV 525 Sodium Chloride 0.9% 1, 525 000 ml @ 75 mls/hr IV . Q40Y35M [facility] Rx#:[id number] Oral 480 330 Output: Urine 1050 100 Other: # Voids 1 2 - Exam -GENERAL: The patient is alert and oriented x3, not in any acute distress. Well developed, well nourished. Generally weak HEENT: Pupils are round and equally reacting to light. EOMI. No scleral icterus. No conjunctival pallor. Normocephalic, atraumatic. No pharyngeal erythema. No thyromegaly. CARDIOVASCULAR: S1 and S2 present. No murmurs, rubs, or gallops. PULMONARY: Chest is clear to auscultation, no wheezing or crackles. ABDOMEN: Soft, nontender, nondistended, normoactive bowel sounds. No palpable organomegaly. MUSCULOSKELETAL: No joint swelling or deformity. EXTREMITIES: No cyanosis, clubbing, or pedal edema. NEUROLOGICAL: Gross neurological examination did not reveal any focal deficits. SKIN: No rashes. no petechiae. - Labs CBC & Chem 7: 10/01/19 09:41 10/01/19 09:41 Labs: Abnormal Lab Results - Last 24 Hours (Table) 10/01/19 10/01/19 Range/Units 09:41 09:41 RBC 2.65 L (4.30-5.90) m/uL Hgb 7.5 L (13.0-17.5) gm/dL Hct 25.6 L (39.0-53.0) % MCHC 29.5 L (31.0-37.0) g/dL RDW 17.8 H (11.5-15.5) % Potassium 3.4 L (3.5-5.1) mmol/L Glucose 130 H (74-99) mg/dL Assessment and Plan Assessment: -Shortness of breath secondary to anemia. Status post recent EGD reporting :2 nonbleeding angiectasia, gastric and duodenal, treated with argon plasma coagulation therapy. No other sources of bleeding, old blood or active bleeding noted. Small hiatal hernia. -Descending aorta ,small aortic ulcer, similar findings in the abdominal aorta ,proximal descending aorta ectatic at 3.8 cm. -Acute on chronic anemia, baseline around 12-13. 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 -benign prostatic atrophy Plan: Continue on current medication regime ,monitoring and symptomatic treatment. PPI, Gentle IV fluid hydration. Vascular consult in place, recommendations noted, no intervention currently and follow-up as an outpatient. Evaluated by cardiology last visit. Check TSH, B12 and folate. Check hemoglobin A1c. Physical therapy evaluation Close monitoring of renal function, hemoglobin and electrolytes with repeat labs ordered for a.m. DVT prophylaxis, mechanical, no heparin in view of recent GI bleed Prognosis is guarded
[2019-10-01] MEDS: POTASSIUM CHLORIDE ER 10 MEQ TAB.ER.PRT PO SCH (17:42)
[2019-10-01] MEDS: SODIUM CHLORIDE 0.9% 1,000 ML IV SCH (17:43)
[2019-10-01] MEDS: ATORVASTATIN 40 MG TAB PO SCH (21:07)
[2019-10-01] MEDS: ALPRAZolam 0.25 MG TAB PO PRN (21:13)
[2019-10-01] MEDS: ASPIRIN 81 MG PO SCH (21:30)
[2019-10-02] MEDS: IPRATROPIUM-ALBUTEROL 3 ML NEB INHALATION PRN ×2 (07:56→20:24)
[2019-10-02 08:46] LABS: Anisocytosis Slight; Basophils % (A) 1 %; Eosinophils # (A) 0.2 k/uL (0-0.7); Eosinophils % (A) 3 %; HCT 26.7 % (39.0-53.0); HGB 7.9 gm/dL (13.0-17.5); Hypochromasia Marked; Lymphocytes # (A) 1.1 k/uL (1.0-4.8); Lymphocytes % (A) 17 %; MCH 28.4 pg (25.0-35.0); MCHC 29.7 g/dL (31.0-37.0); MCV 95.5 fL (80.0-100.0); Macrocytosis Slight; Mean Platelet Volume 8.2; Monocytes # (A) 0.4 k/uL (0-1.0); Monocytes % (A) 7 %; Neutrophils # (A) 4.6 k/uL (1.3-7.7); Neutrophils % (A) 70 %; Platelet Count 211 k/uL (150-450); RBC 2.79 m/uL (4.30-5.90); RDW 17.4 % (11.5-15.5); WBC 6.6 k/uL (3.8-10.6)
[2019-10-02 08:53] LABS: Albumin 3.4 g/dL (3.5-5.0); Calcium 8.3 mg/dL (8.4-10.2); Potassium 4.6 mmol/L (3.5-5.1); Total Bilirubin 0.8 mg/dL (0.2-1.3)
[2019-10-02] MEDS: METOPROLOL TARTRATE 25 MG TAB PO SCH ×2 (09:57→20:25)
[2019-10-02] MEDS: PANTOPRAZOLE 40 MG TABLET PO SCH ×2 (09:57→20:25)
[2019-10-02] MEDS: FUROSEMIDE 40 MG TAB PO SCH ×2 (09:57→18:07)
[2019-10-02] MEDS: LOSARTAN 25 MG TAB PO SCH (12:20)
[2019-10-02] MEDS: TAMSULOSIN 0.4 MG CAP.ER.24H PO SCH (12:20)
--- NOTE | 2019-10-02 13:32 | P.PN ---
Subjective This is a pleasant 89-year-old gentleman with history of CAD, CABG, paroxysmal atrial fibrillation, aortic valve replacement with tissue valve, CHF, gastroesophageal reflux disease, hyperlipidemia, hypertension, former nicotine dependence presented to the ER with complaints of shortness of breath, worsened by exertion. Patient was recently discharged this past Thursday following anemia workup. EGD reported 2 nonbleeding angiectasia, gastric and duodenal, treated with argon plasma coagulation therapy. No other sources of bleeding, old blood or active bleeding noted. Small hiatal hernia. Reports feeling well until about mid week, developed exertional shortness of breath, lightheadedness, dizziness. Difficulty performing ADLs including brushing his hair. Denies chest pain, palpitations or shortness of breath. Denies back pain. Denies abdominal pain. Denies syncope. Hemoglobin on admission 8.3, increased by 1gm upon discharge. Platelets 203. Elevated d-dimer, Pulmonary embolism ruled out in the ER via CTA. Incidental finding of suggested small aortic ulcer in the descending aorta , similar findings in the abdominal aorta ,proximal descending aorta ectatic at 3.8 cm. Indeterminate pulmonary nodule, right upper lobe 9 mm. creatinine 1.19. Troponin 0.068, 0.067, 0.088. EKG reported sinus rhythm with first-degree AV block, anterior infarct, age undetermined, occasional PVCs. Chest x-ray reporting no acute cardiopulmonary process, tortuous density aorta, aortic ectasia. On-call hospitalist, Dr. Price over the weekend, Dr. Price team will resume the care of the patient on Monday 10/0210/01/2019 Patient is a pleasant 89 years old male with history of atrial fibrillation, heart failure, hypertension and hyperlipidemia. He was at home with however patient denies to me he has an hospice (mentioned in ED note). He was recently discharged on 09/25 for CHF and blood loss anemia secondary to gastric and duodenal angiectasia. He was treated with gold probe coagulation therapy. Upon discharge he developed dyspnea with weakness and lightheadedness over 2 days. Patient had elevated d-dimer and CT of the chest performed showing no pulmonary embolism however there is a small aortic ulcer in the descending aorta and abdominal aorta. Vascular surgery was consulted and recommended no plans for intervention at this time and follow-up in the office as an outpatient CBC and BMP were unremarkable except for anemia of 7.6, and 7.5 and low potassium 3.4 Troponin is chronically elevated and on admission is 0.08, close to last time of 0.06 Chronically elevated troponin. Patient currently on a statin, metoprolol, lisinopril, Protonix twice a day and normal/75 mL/h lower to 40 mL per hour. Physical short of breath with little cough with phlegm, no chest pain. Since his feels generally weak with ask for physical therapy evaluation, also check TSH, B12 and folic and hemoglobin A1c 10/02/2019 Patient still complaining of some exertional dyspnea but no dizziness and his leg pain has resolved. He is fully awake and oriented. Blood pressure 113/61 and heart rate 79, rest of vitals are stable. CBC stable and hemoglobin 7.5 and 7.9, BMP is within normal limits, TSH is normal at 2.7 B12, folate and hemoglobin A1c are ordered and are still pending Tomorrow Dr. Price team will resume the care of the patient Objective - Vital Signs Vital signs: Vital Signs Temp 97.6 F 10/02/19 12:33 Pulse 79 10/02/19 12:33 Resp 18 10/02/19 12:33 BP 113/61 10/02/19 12:33 Pulse Ox 91 L 10/02/19 12:33 Intake & Output 10/01/19 10/02/19 10/02/19 18:59 06:59 18:59 Intake Total 770 240 Balance 770 240 Weight 67.6 kg Intake: IV 320 Sodium Chloride 0.9% 1, 320 000 ml @ 40 mls/hr IV . Q24H [facility] Rx#:[id number] Oral 450 240 Other: # Voids 2 1 # Bowel Movements 1 - Exam -GENERAL: The patient is alert and oriented x3, not in any acute distress. Well developed, well nourished. Generally weak HEENT: Pupils are round and equally reacting to light. EOMI. No scleral icterus. No conjunctival pallor. Normocephalic, atraumatic. No pharyngeal erythema. No thyromegaly. CARDIOVASCULAR: S1 and S2 present. No murmurs, rubs, or gallops. PULMONARY: Chest is clear to auscultation, no wheezing or crackles. ABDOMEN: Soft, nontender, nondistended, normoactive bowel sounds. No palpable organomegaly. MUSCULOSKELETAL: No joint swelling or deformity. EXTREMITIES: No cyanosis, clubbing, or pedal edema. NEUROLOGICAL: Gross neurological examination did not reveal any focal deficits. SKIN: No rashes. no petechiae. - Labs CBC & Chem 7: 10/02/19 07:01 10/02/19 07:01 Labs: Abnormal Lab Results - Last 24 Hours (Table) 10/02/19 10/02/19 Range/Units 07:01 07:01 RBC 2.79 L (4.30-5.90) m/uL Hgb 7.9 L (13.0-17.5) gm/dL Hct 26.7 L (39.0-53.0) % MCHC 29.7 L (31.0-37.0) g/dL RDW 17.4 H (11.5-15.5) % Calcium 8.3 L (8.4-10.2) mg/dL Total Protein 6.0 L (6.3-8.2) g/dL Albumin 3.4 L (3.5-5.0) g/dL Assessment and Plan Assessment: -Shortness of breath secondary to anemia. Status post recent EGD reporting :2 nonbleeding angiectasia, gastric and duodenal, treated with argon plasma coagulation therapy. No other sources of bleeding, old blood or active bleeding noted. Small hiatal hernia. -Descending aorta ,small aortic ulcer, similar findings in the abdominal aorta ,proximal descending aorta ectatic at 3.8 cm. -Acute on chronic anemia, baseline around 12-13. 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 -benign prostatic atrophy Plan: Continue on current medication regime ,monitoring and symptomatic treatment. PPI, Gentle IV fluid hydration. Vascular consult in place, recommendations noted, no intervention currently and follow-up as an outpatient. Evaluated by cardiology last visit. Check TSH, B12 and folate. Check hemoglobin A1c. Physical therapy evaluation Close monitoring of renal function, hemoglobin and electrolytes with repeat labs ordered for a.m. DVT prophylaxis, mechanical, no heparin in view of recent GI bleed Prognosis is guarded
[2019-10-02] MEDS: POTASSIUM CHLORIDE ER 10 MEQ TAB.ER.PRT PO SCH (18:07)
[2019-10-02] MEDS: ASPIRIN 81 MG PO SCH (20:25)
[2019-10-02] MEDS: ATORVASTATIN 40 MG TAB PO SCH (20:25)
[2019-10-02] MEDS: ALPRAZolam 0.25 MG TAB PO PRN (20:34)
[2019-10-03] MEDS: IPRATROPIUM-ALBUTEROL 3 ML NEB INHALATION PRN (07:10)
[2019-10-03] MEDS: FUROSEMIDE 40 MG TAB PO SCH (09:24)
[2019-10-03] MEDS: METOPROLOL TARTRATE 25 MG TAB PO SCH (09:24)
[2019-10-03] MEDS: PANTOPRAZOLE 40 MG TABLET PO SCH (09:24)
[2019-10-03 10:29] VITALS: TEMP 97.8
[2019-10-03 11:50] LABS: Folate, Serum 12.7 ng/mL
[2019-10-03 12:32] VITALS: BP 103/53; PULSE 95; RESP 18
[2019-10-03] MEDS: LOSARTAN 25 MG TAB PO SCH (13:10)
[2019-10-03] MEDS: TAMSULOSIN 0.4 MG CAP.ER.24H PO SCH (13:12)
[2019-10-03] MEDS ORDERED: SODIUM FERRIC GLUCONAT-SUCROSE 125 MG in SODIUM CHLORIDE 0.9% 100 ML IVPB ONE (13:45)
--- NOTE | 2019-10-03 14:21 | P.DS ---
Providers Date of admission: 09/30/19 07:39 Expected date of discharge: 10/03/19 Attending physician: Dom Price Consults: 09/29/19 12:10 Consult Physician Urgent Consulting Provider: Elva Mcdonough Consult Reason/Comments: aortic ulcer Do you want consulting provider notified?: Yes Primary care physician: Dom Price [place] [facility] Course: Final Diagnoses: -Shortness of breath secondary to anemia. Status post recent EGD reporting :2 nonbleeding angiectasia, gastric and duodenal, treated with argon plasma coagulation therapy. No other sources of bleeding, old blood or active bleeding noted. Small hiatal hernia. -Descending aorta ,small aortic ulcer, similar findings in the abdominal aorta ,proximal descending aorta ectatic at 3.8 cm. Follow-up with vascular surgery outpatient. -Acute on chronic anemia, baseline around 12-13. 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 -benign prostatic atrophy Hospital course:This is a pleasant 89-year-old gentleman with history of CAD, CABG, paroxysmal atrial fibrillation, aortic valve replacement with tissue valve, CHF, gastroesophageal reflux disease, hyperlipidemia, hypertension, former nicotine dependence presented to the ER with complaints of shortness of breath, worsened by exertion. Patient was recently discharged this past Thursday following anemia workup. EGD reported 2 nonbleeding angiectasia, gastric and duodenal, treated with argon plasma coagulation therapy. No other sources of bleeding, old blood or active bleeding noted. Small hiatal hernia. Reports feeling well until about mid week, developed exertional shortness of breath, lightheadedness, dizziness. Difficulty performing ADLs including brushing his hair. Denies chest pain, palpitations or shortness of breath. Denies back pain. Denies abdominal pain. Denies syncope. Hemoglobin on admission 8.3, increased by 1gm upon discharge. Platelets 203. Elevated d-dimer, Pulmonary embolism ruled out in the ER via CTA. Incidental finding of suggested small aortic ulcer in the descending aorta , similar findings in the abdominal aorta ,proximal descending aorta ectatic at 3.8 cm. Indeterminate pulmonary nodule, right upper lobe 9 mm. creatinine 1.19. Troponin 0.068, 0.067, 0.088. EKG reported sinus rhythm with first-degree AV block, anterior infarct, age undetermined, occasional PVCs. Chest x-ray reporting no acute cardiopulmonary process, tortuous density aorta, aortic ectasia. Evaluated by vascular surgery with no intervention recommended at this time. Further follow-up with vascular surgery outpatient recommended.. Evaluated by PT, reporting good endurance, completely independent, with discharge recommendations for home. Patient will be discharged home in a stable condition with guarded prognosis. The impression and plan of care has been dictated as directed. : I performed a history and examination of this patient, discussed the same with the dictator. I agree with the dictator's note ,documented as a scribe. Any additional findings or plans will be noted. Patient Condition at Discharge: Stable Plan - Discharge Summary Discharge Rx Participant: No New Discharge Prescriptions: Continue Losartan [Cozaar] 12.5 mg PO DAILY@1200 #30 tab Ipratropium-Albuterol Nebulize [Duoneb 0.5 mg-3 mg/3 ml Soln] 3 ml INHALATION RT-QID PRN PRN Reason: Shortness Of Breath Potassium Chloride ER [K-Dur 10] 10 meq PO AC-SUPPER@1700 Atorvastatin [Lipitor] 40 mg PO HS@1999 Aspirin 81 mg PO HS@1999 Nitroglycerin Sl Tabs [Nitrostat] 0.4 mg SUBLINGUAL Q5M PRN #0 tab PRN Reason: Chest Pain Tamsulosin HCl [Flomax] 0.4 mg PO DAILY@1200 ALPRAZolam [Xanax] 0.25 mg PO HS PRN PRN Reason: Insomnia Metoprolol Tartrate [Lopressor] 25 mg PO BID@0900,1999 Furosemide [Lasix] 40 mg PO BID@0900,1700 Pantoprazole Sodium [Protonix] 40 mg PO BID@899,1999 Discharge Medication List Losartan [Cozaar] 12.5 mg PO DAILY@1200 #30 tab 02/11/16 [Rx] Aspirin 81 mg PO HS@199903/02/16 [History] Atorvastatin [Lipitor] 40 mg PO HS@199903/02/16 [History] Ipratropium-Albuterol Nebulize [Duoneb 0.5 mg-3 mg/3 ml Soln] 3 ml INHALATION RT-QID PRN 03/02/16 [History] Potassium Chloride ER [K-Dur 10] 10 meq PO AC-SUPPER@1700 03/02/16 [History] Nitroglycerin Sl Tabs [Nitrostat] 0.4 mg SUBLINGUAL Q5M PRN #0 tab 03/07/16 [Rx] Tamsulosin HCl [Flomax] 0.4 mg PO DAILY@1200 04/09/16 [History] ALPRAZolam [Xanax] 0.25 mg PO HS PRN 09/24/18 [History] Furosemide [Lasix] 40 mg PO BID@0900,1700 09/22/19 [History] Metoprolol Tartrate [Lopressor] 25 mg PO BID@0900,199909/22/19 [History] Pantoprazole Sodium [Protonix] 40 mg PO BID@0900,199909/29/19 [History] Follow up Appointment(s)/Referral(s): Elva Mcdonough DO [STAFF PHYSICIAN] - 1 Week [facility], [NON-STAFF] - 1-2 Days Dom Price DO [Primary Care Provider] - 3 Days Discharge Disposition: HOME SELF-CARE
--- NOTE | 2019-10-06 10:56 | CDI ---
Documentation Clarification Form Date: 10/06/2019 From; Dora Dixon, ORTHOPEDIC MECHANIC; Bethany Welch, Beater Lead Phone: If you have any questions about this query, please contact Bethany Welch Beater Lead at [phone] between 8 am and 5 pm. Admit date: 09/30/19 Patient Name. Philip Bhardwaj Visit Number [id number] Discharge Date: 10/03/[address] Price, Chronic CHF exacerbation, systolic dysfunction is documented in H&P and DS. History/Risk Factors: Anemia, CHF, interstitial lung disease, COPD. Clinical Indicators: Weakness and exertional dyspnea. BNP: 5570 Chest X Ray: Cardiomegaly, tortuous aorta. Treatment: PO Lasix In your professional opinion, can you please clarify the acuity of the documented systolic dysfunction? Systolic Heart Failure: Acute Chronic Acute on Chronic Unable to Determine Other, please specify (Last Revision: August 2017) acute on chronic congestive heart failure MTDD
== END 2019-10-03 17:35 | disposition home health service (06) | DRG 811 ==
LOC: EC 09:27 → 3SCARD 12:09 → 2SICU 17:45 → OBSVTOIN 09-30 07:39 → 3SCARD 09-30 16:03
PROVIDERS: ADMIT Family Medicine; ATTEND Family Medicine
DX: D50.9 Iron deficiency anemia, unspecified (principal); I50.23 Acute on chronic systolic (congestive) heart failure; I13.0 Hypertensive heart and chronic kidney disease with heart failure and stage 1 through stage 4 chronic kidney disease, or unspecified chronic kidney disease; J84.9 Interstitial pulmonary disease, unspecified; N17.9 Acute kidney failure, unspecified; E78.5 Hyperlipidemia, unspecified; I25.2 Old myocardial infarction; I25.10 Atherosclerotic heart disease of native coronary artery without angina pectoris; I25.5 Ischemic cardiomyopathy; I44.0 Atrioventricular block, first degree; I48.0 Paroxysmal atrial fibrillation; Z20.828 Contact with and (suspected) exposure to other viral communicable diseases; I71.9 Aortic aneurysm of unspecified site, without rupture; J44.9 Chronic obstructive pulmonary disease, unspecified; K21.9 Gastro-esophageal reflux disease without esophagitis; K44.9 Diaphragmatic hernia without obstruction or gangrene; N18.2 Chronic kidney disease, stage 2 (mild); R09.02 Hypoxemia; N40.0 Benign prostatic hyperplasia without lower urinary tract symptoms; Z79.82 Long term (current) use of aspirin; Z79.899 Other long term (current) drug therapy; Z87.891 Personal history of nicotine dependence; Z95.1 Presence of aortocoronary bypass graft; Z95.3 Presence of xenogenic heart valve; Z88.8 Allergy status to other drugs, medicaments and biological substances; Z88.0 Allergy status to penicillin; R91.1 Solitary pulmonary nodule
CPT/HCPCS: 36415; 71046; 71275; 80048; 80053; 82607; 82746; 83036; 83605; 83735; 83880; 84443; 84484; 85025; 85379; 85610; 85730; 87635; 93005; 94640; 99285

== ENCOUNTER → 2020-10-18 | Outpatient (CLI) | payer MEDICARE, BC ==
[2020-10-18 20:25] LABS: Basophils # (A) 0.02 X 10*3/uL (0.00-0.10); Basophils % (A) 0.3 %; Eosinophils # (A) 0.06 X 10*3/uL (0.04-0.35); Eosinophils % (A) 0.8 %; HCT 48.3 % (39.6-50.0); HGB 15.2 g/dL (13.0-17.0); Lymphocytes # (A) 1.52 X 10*3/uL (0.90-5.00); Lymphocytes % (A) 19.4 %; MCH 30.2 pg (27.0-32.0); MCHC 31.5 g/dL (32.0-37.0); Mean Platelet Volume 10.7 fL (9.5-12.2); Monocytes # (A) 0.64 X 10*3/uL (0.20-1.00); Monocytes % (A) 8.2 %; Neutrophils # (A) 5.55 X 10*3/uL (1.80-7.70); Neutrophils % (A) 70.8 %; Platelet Count 136 X 10*3/uL (140-440); RBC 5.03 X 10*6/uL (4.40-5.60); RDW 12.8 % (11.5-14.5); WBC 7.83 X 10*3/uL (4.50-10.00)
[2020-10-19 16:35] LABS: % Iron Saturation 39.32 (15.00-50.00)
[2020-10-19 16:43] LABS: Ferritin 239.5 ng/mL (22.0-322.0)
== END | disposition home or self-care (01) ==
LOC: LABWHC1 11:07
PROVIDERS: ATTEND Nurse Practitioner
DX: D50.0 Iron deficiency anemia secondary to blood loss (chronic) (principal)
CPT/HCPCS: 36415; 82728; 83540; 83550; 85025